=== PATIENT | female | born 1945 | race African-American/Black ===

== ENCOUNTER 2025-02-28 17:21 | Inpatient (IN) | payer MEDICARE, SELFPAY ==
--- NOTE | ~2025-02-28 | XR_ITS ---
CLINICAL HISTORY: dyspnea 2 view chest x-ray Comparison: None Findings: Heart size normal. Central patchy mixed interstitial and airspace opacities with findings of pulmonary vascular congestion. Mildly hyperexpanded lungs indicative of COPD changes. No pleural effusion or pneumothorax. IMPRESSION: 1. Mixed interstitial and airspace opacities with findings of pulmonary vascular congestion. Findings could represent volume overload or heart failure. Atypical infectious process such as bronchitis or early bilateral pneumonia can appear similar. This document has been electronically signed by: Anival Jones MD on 02/28/2025 19:50:58
--- NOTE | ~2025-02-28 | US_ITS ---
EXAMINATION: US RETROPERITONEAL LIMITED (RENAL ONLY) CLINICAL INFORMATION: Chronic kidney disease with hypertension. COMPARISON: None available. TECHNIQUE: Ultrasound along with color Doppler imaging and spectral analysis was performed of the kidneys. FINDINGS: RIGHT KIDNEY: 10.1 x 2.8 x 3.4 cm (SAG x AP x TRV). The kidney is normal in size, contour, and echogenicity. Renal cortical thickness is normal. No calculi or focal parenchymal lesions. No hydronephrosis. LEFT KIDNEY: 9.2 x 4.4 x 3.4 cm (SAG x AP x TRV). The kidney is normal in size, contour, and echogenicity. Renal cortical thickness is normal. No calculi or focal suspicious parenchymal lesions. No hydronephrosis. There is a lower pole simple cyst measuring 1.8 cm. There is an upper pole simple cyst measuring 0.6 cm. Spectral Doppler analysis: Right Kidney: -Peak systolic velocity in the proximal right renal artery = 178 cm/s. Normal waveforms. -Peak systolic velocity in the mid right renal artery = 128 cm/s. Normal waveforms. -Peak systolic velocity in the distal right renal artery = 53 cm/s. Normal waveforms. -Patent right renal vein. -Upper pole interlobar artery resistive index of 0.83. -Midpole interlobar artery resistive index of 0.87. -Lower pole interlobar artery resistive index of 0.71. RAR right = could not be calculated. Left Kidney: -Peak systolic velocity in the proximal left renal artery = 161 cm/s. Normal waveforms. -Peak systolic velocity in the mid left renal artery = 164 cm/s. Normal waveforms. -Peak systolic velocity in the distal left renal artery = 166 cm/s. Normal waveforms. -Patent left renal vein. -Upper pole interlobar artery resistive index of 0.83. -Mid pole interlobar artery resistive index of 0.81. -lower pole interlobar artery resistive index of 0.76. RAR left = could not be calculated Aorta: -Peak systolic velocity = 206 cm/s. US/US renal doppler IMPRESSION: 1. Renal parenchyma is normal aside from 2 simple cysts in the left kidney. 2. Cannot calculate the aorta to renal artery ratios due to systolic velocity in the aorta measuring 206 cm/s. 3. No elevated peak systolic velocities or abnormal waveforms identified. 4. Mildly elevated resistive indices in the upper and midpole segmental arteries of both kidneys, suggesting the possibility of some degree of stenosis. 5. Given unclear findings, further investigation with CT angiogram should be considered. Electronically signed by: Shay Manriquez MD 03/01/2025 03:09 PM EDT RP
--- NOTE | ~2025-02-28 | NM_ITS ---
EXAMINATION: Nuclear medicine pulmonary perfusion. CLINICAL INDICATION: Positive d-dimer. Short of breath. COMPARISON: Chest x-ray 02/28/2025. TECHNIQUE: Following intravenous administration of 4 mCi of 99m technetium MAA, imaging of chest was obtained in multiple projections. Ventilation study was not performed. FINDINGS: On perfusion study there is no segmental, subsegmental defects seen to suspect any PE at this time. NM/NM pul perfusion IMPRESSION: Normal perfusion study. Ventilation study was not performed. Electronically signed by: Low Thompson MD 03/01/2025 08:48 AM EDT
[2025-02-28 17:29] VITALS: BP 116/38; PULSE 67; RESP 18; TEMP 36.6; O2SAT 89; BMI 30.9
--- NOTE | 2025-02-28 17:33 | ED_ITS ---
HPI - General Adult General Chief complaint: Dyspnea Stated complaint: SOB-CHF Time Seen by Provider: 02/28/25 18:03 Source: patient Limitations: no limitations History of Present Illness ED Provider: Louann Keyes PA-C HPI narrative: 79-year-old female with a history of hypertension, hyperlipidemia, CKD unknown baseline creatinine, new diagnosis of heart failure, presents with shortness of breath x 1 day. Patient states she is visiting the area, she lives in [place]. Patient is having new dyspnea with exertion, she feels as if she can not catch her breath. Associated new swelling of her hands and lower extremities. Denies recent cough or cold symptoms or fever. Denies chest pain. Denies unilateral calf pain or swelling. No orthopnea or unintentional weight gain to her knowledge. Related Data Allergies Allergy/AdvReac Type Severity Reaction Status Date / Time Sulfa (Sulfonamide Allergy Shortness Verified 02/28/25 17:37 Antibiotics) of Breath Review of Systems 2 Review of Systems: Yes all other systems are reviewed and are negative Constitutional: Constitutional: Denies fatigue and Denies fever(s) Cardiovascular: Cardiovascular: Denies chest pain, Reports dyspnea and Reports dyspnea on exertion Respiratory: Respiratory: Denies cough, Reports dyspnea, Reports dyspnea on exertion and Denies wheezing Gastrointestinal: Gastrointestinal: Denies abdominal pain, Denies nausea and Denies vomiting Endocrine: Endocrine: Denies fatigue Allergic/Immunologic: Allergic/Immunologic: Denies wheezing PMFSH Past Medical History Attestation statement: The following information was validated with the patient. Social History Social History Smoked in Last 30 Days: No Use of substances other than those prescribed or required for medical reasons: No Advance Directives: No Advance Directives Information Provided: Yes Do you have a plan to hurt others: No Plan Physical Exam ED Vital Signs: Vital Signs - 24 hr 02/28/25 17:29 02/28/25 18:54 02/28/25 19:11 Temperature 97.8 F Pulse Rate 67 55 Respiratory Rate 18 14 Blood Pressure 116/38 L 110/43 L 108/44 L Pulse Oximetry 89 L 100 Oxygen Delivery Method Room Air Nasal Cannula Oxygen Flow Rate 3 02/28/25 19:22 03/01/25 00:00 03/01/25 00:00 Temperature 97.9 F Pulse Rate 68 Respiratory Rate 16 Blood Pressure 125/44 L Pulse Oximetry 100 70 L 94 Oxygen Delivery Method Nasal Cannula Room Air Oxygen Flow Rate 3 BMI result Body Mass Index 30.9 Const Other: Alert well-appearing Orientation/consciousness: patient oriented x3 Resp Other: No tachypnea, rhonchorous posterior west, active cough Cardio Other: Pitting edema noted lower extremities, both lower extremities are equal in size Skin Other: Warm dry no rash Neuro General: patient oriented x3, gait normal, no focal motor deficits and CN's II- XI intact bilaterally Psych Other: Cooperative Course Course Course Narrative: This is a rapid medical exam performed by Radhika Overton NP: Additional HPI, ROS, PE not included below will be deferred to primary provider. Patient is a 79-year-old female with history of CHF presenting with shortness of breath and leg swelling since yesterday. Recently flew in from [place]. Denies chest pain. States several hours had worse shortness of breath. Plan: EKG, labs, CXR Reevaluation(s) Reevaluation #1: Ambulated the patient, she became profoundly tachypneic, her oxygen dropped to 70 on room air Medications Administered Discontinued Medications Generic Name Dose Route Start Last Admin Trade Name Freq PRN Reason Stop Dose Admin Furosemide 20 mg 02/28/25 18:53 02/28/25 19:11 Furosemide 20 Mg/2 Ml Vial IVPUSH 02/28/25 18:54 20 mg ONCE ONE Administration Protocol Medical Decision Making Medical Decision Making [facility] Narrative: 79-year-old female with a history of hypertension, hyperlipidemia, CKD unknown baseline creatinine , new diagnosis of heart failure, presents with shortness of breath x 1 day. Patient states she is visiting the area, she lives in [place]. Patient is having new dyspnea with exertion, she feels as if she can not catch her breath. Associated new swelling of her hands and lower extremities. Denies recent cough or cold symptoms or fever. Denies chest pain. Denies unilateral calf pain or swelling. No orthopnea or unintentional weight gain to her knowledge. Problem: Chronic kidney disease, hypertension, age, new heart failure History: Per patient I have considered the following differential diagnoses: ACS, heart failure exacerbation, viral syndrome, pneumonia, PE Plan: Patient's symptoms are concerning for heart failure exacerbation. Performed bedside echo, IVC is dilated, she does have some degree of compromise contractility, images were a poor quality. We will be screening basic labs, BNP and troponin EKG chest x-ray. To note she does not have any infectious signs or symptoms to suggest viral syndrome or pneumonia, we will add on a viral panel. I am considering PE given the new hypoxic eye and she has been traveling, we will add on a dimer. To note she does not have objective unilateral calf pain or swelling, there was no pleuritic chest pain. There was no chest pain at all. I have independently reviewed the following tests: Labs: No leukocytosis, not anemic, no electrolyte abnormality, creatinine 1.95, BNP 83, trop 277.8, viral panel negative, VBG HCO3 subtly elevated at 33, other values wnl, dimer 468 EKG: Sinus bradycardia, rate of 56, incomplete left bundle branch, ST abnormality inferior leads, QTC 408 Chest x-ray: IMPRESSION: 1. Mixed interstitial and airspace opacities with findings of pulmonary vascular congestion. Findings could represent volume overload or heart failure. Atypical infectious process such as bronchitis or early bilateral pneumonia can appear similar. Lab Data 02/28/25 18:05 02/28/25 18:05 Labs: Lab Results 02/28/25 02/28/25 02/28/25 Range/Units 18:05 18:11 19:46 WBC 9.8 (4.8-10.8) X10*3/uL RBC 3.67 L (4.20-5.50) X10*6/uL Hgb 10.8 L (12.0-16.0) g/dl Hct 33.4 L (37.0-47.0) % MCV 91.0 (80.0-98.0) fL MCH 29.4 (27.0-33.0) pg MCHC 32.3 (31.0-35.0) g/dl RDW 14.1 (11.0-16.0) % Plt Count 224 (160-400) X10*3/uL MPV 10.1 (9.4-12.3) fL Immature Gran % (Auto) 0.3 (0.0-0.4) % Neut % (Auto) 59.7 (45-73) % Lymph % (Auto) 9.9 L (20-40) % [place] % (Auto) 7.0 (2-11) % Eos % (Auto) 22.7 H (0-4) % Baso % (Auto) 0.4 (0-2) % Lymph # (Auto) 1.0 L (1.2-4.9) X10*3/uL [place] # (Auto) 0.7 (0.1-1.2) X10*3/uL Eos # (Auto) 2.2 H (0.0-0.4) X10*3/uL Baso # (Auto) 0.0 (0.0-0.2) X10*3/uL Abs Immat Gran (auto) 0.03 (0.00-0.03) X10*3/uL Absolute Neuts (auto) 5.8 (2.0-8.3) x10*3/uL Absolute Nucleated RBC 0.000 (0.0-0.012) X10*3/uL Nucleated RBC % (auto) 0.0 (0.0-0.2) /100WBC Smear Tech's Comments VERIFIED D-Dimer High Sensitivty 468 NG/ML VBG pH 7.35 (7.32-7.43) VBG pCO2 59 mmHg VBG pO2 54 mmHg VBG HCO3 33 H (22-26) mmol/L VBG O2 Saturation 82.0 % VBG Base Excess 6.1 mmol/L Sodium 145 (135-145) mmol/L Potassium 3.6 (3.3-5.1) mmol/L Chloride 104 (96-108) mmol/L Carbon Dioxide 26 (22-29) mmol/L Anion Gap 19 (12-20) BUN 55 H (9-16) mg/dL Creatinine 1.95 H (0.5-1.4) mg/dL Estim Creat Clear Calc 24.1 Estimated GFR 25 Random Glucose 91 (60-115) mg/dL Calcium 10.5 H (8.4-10.2) mg/dL Magnesium 1.7 (1.6-2.6) mg/dL Total Bilirubin 0.4 (0.0-1.0) mg/dL AST 34 H (5-31) U/L ALT 18 (0-31) U/L Alkaline Phosphatase 86 (39-117) U/L Troponin I High Sens 277.8 H* (<3.5-17.0) ng/L B-Natriuretic Peptide 83 (<100) pg/mL Total Protein 6.4 L (6.5-8.0) g/dL Albumin 3.7 (3.5-5.0) g/dL Influenza Type A (PCR) NEGATIVE (Negative) Influenza Type B (PCR) NEGATIVE (Negative) RSV RNA Qual (PCR) NEGATIVE (Negative) SARS-CoV-2 RNA (RT-PCR) NEGATIVE (Negative) 02/28/25 Range/Units 21:25 WBC (4.8-10.8) X10*3/uL RBC (4.20-5.50) X10*6/uL Hgb (12.0-16.0) g/dl Hct (37.0-47.0) % MCV (80.0-98.0) fL MCH (27.0-33.0) pg MCHC (31.0-35.0) g/dl RDW (11.0-16.0) % Plt Count (160-400) X10*3/uL MPV (9.4-12.3) fL Immature Gran % (Auto) (0.0-0.4) % Neut % (Auto) (45-73) % Lymph % (Auto) (20-40) % [place] % (Auto) (2-11) % Eos % (Auto) (0-4) % Baso % (Auto) (0-2) % Lymph # (Auto) (1.2-4.9) X10*3/uL [place] # (Auto) (0.1-1.2) X10*3/uL Eos # (Auto) (0.0-0.4) X10*3/uL Baso # (Auto) (0.0-0.2) X10*3/uL Abs Immat Gran (auto) (0.00-0.03) X10*3/uL Absolute Neuts (auto) (2.0-8.3) x10*3/uL Absolute Nucleated RBC (0.0-0.012) X10*3/uL Nucleated RBC % (auto) (0.0-0.2) /100WBC Smear Tech's Comments D-Dimer High Sensitivty NG/ML VBG pH (7.32-7.43) VBG pCO2 mmHg VBG pO2 mmHg VBG HCO3 (22-26) mmol/L VBG O2 Saturation % VBG Base Excess mmol/L Sodium (135-145) mmol/L Potassium (3.3-5.1) mmol/L Chloride (96-108) mmol/L Carbon Dioxide (22-29) mmol/L Anion Gap (12-20) BUN (9-16) mg/dL Creatinine (0.5-1.4) mg/dL Estim Creat Clear Calc Estimated GFR Random Glucose (60-115) mg/dL Calcium (8.4-10.2) mg/dL Magnesium (1.6-2.6) mg/dL Total Bilirubin (0.0-1.0) mg/dL AST (5-31) U/L ALT (0-31) U/L Alkaline Phosphatase (39-117) U/L Troponin I High Sens 295.6 H* (<3.5-17.0) ng/L B-Natriuretic Peptide (<100) pg/mL Total Protein (6.5-8.0) g/dL Albumin (3.5-5.0) g/dL Influenza Type A (PCR) (Negative) Influenza Type B (PCR) (Negative) RSV RNA Qual (PCR) (Negative) SARS-CoV-2 RNA (RT-PCR) (Negative) Discharge Plan Discharge Clinical Impression: Congestive heart failure, Hypoxia Patient Disposition: Admitted As Inpatient
--- NOTE | 2025-02-28 17:39 | ECG_ITS ---
Test Reason : SOB Blood Pressure : */* mmHG Vent. Rate : 56 BPM Atrial Rate : 56 BPM P-R Int : 154 ms QRS Dur : 114 ms QT Int : 408 ms P-R-T Axes : 73 2 192 degrees QTcB Int : 393 ms Poor data quality Sinus bradycardia Incomplete left bundle branch block Abnormal ECG No previous ECGs available Referred By: Nian Ovetron Electronically Signed By: ELZA QUINTANILLA MD
[2025-02-28 18:13] LABS: Basophils Percent Auto 0.4 % (0-2); Eosinophils Absolute Auto 2.2 X10*3/uL (0.0-0.4); Eosinophils Percent Auto 22.7 % (0-4); Hematocrit 33.4 % (37.0-47.0); Hemoglobin 10.8 g/dl (12.0-16.0); Imm Gran Abs Auto 0.03 X10*3/uL (0.00-0.03); Imm Gran Pct Auto 0.3 % (0.0-0.4); Lymphocytes Percent Auto 9.9 % (20-40); MANUAL DIFF FLAG SCAN; Mean Corpuscular HGB Conc 32.3 g/dl (31.0-35.0); Mean Corpuscular Hemoglobin 29.4 pg (27.0-33.0); Mean Platelet Volume 10.1 fL (9.4-12.3); Monocytes Absolute Auto 0.7 X10*3/uL (0.1-1.2); Neutrophils Absolute Auto 5.8 x10*3/uL (2.0-8.3); Neutrophils Percent Auto 59.7 % (45-73); Platelet Count 224 X10*3/uL (160-400); Red Blood Count 3.67 X10*6/uL (4.20-5.50); Red Cell Distribution Width 14.1 % (11.0-16.0); SCAN SMEAR FLAG 1; White Blood Count 9.8 X10*3/uL (4.8-10.8)
[2025-02-28 18:16] LABS: VBG Base Excess 6.1 mmol/L; VBG HCO3 33 mmol/L (22-26); VBG pCO2 59 mmHg; VBG pH 7.35 (7.32-7.43); VBG pO2 54 mmHg
[2025-02-28 18:19] LABS: Venous Blood Gas Refer to POC result
[2025-02-28 18:33] LABS: B Type Natriuretic Peptide 83 pg/mL (<100)
[2025-02-28 18:36] LABS: Alanine Aminotransferase 18 U/L (0-31); Albumin Level 3.7 g/dL (3.5-5.0); Alkaline Phosphatase 86 U/L (39-117); Anion Gap 19 (12-20); Aspartate Amino Transferase 34 U/L (5-31); Bilirubin Total 0.4 mg/dL (0.0-1.0); Blood Urea Nitrogen 55 mg/dL (9-16); Calcium 10.5 mg/dL (8.4-10.2); Carbon Dioxide 26 mmol/L (22-29); Chloride 104 mmol/L (96-108); Creatinine Clr Calc Pharmacy 24.1; Estimated Glomerular Filt Rate 25; Glucose Random 91 mg/dL (60-115); Magnesium 1.7 mg/dL (1.6-2.6); Potassium 3.6 mmol/L (3.3-5.1); Sodium 145 mmol/L (135-145); Total Protein 6.4 g/dL (6.5-8.0)
[2025-02-28 18:38] LABS: Troponin-I High Sensitivity 277.8 ng/L (<3.5-17.0)
[2025-02-28 18:42] LABS: SLIDE REVIEW VERIFIED
[2025-02-28 18:50] LABS: Influenza A PCR NEGATIVE (Negative); Influenza B PCR NEGATIVE (Negative); Resp Syncy Virus RNA Qual PCR NEGATIVE (Negative); SARS COV2 PCR INHOUSE NEGATIVE (Negative)
[2025-02-28 18:54] VITALS: BP 110/43; PULSE 55; RESP 14; O2SAT 100
[2025-02-28 19:11] VITALS: BP 108/44
[2025-02-28] MEDS: Furosemide 20 MG/2 ML VIAL IVPUSH (19:11)
[2025-02-28 19:22] VITALS: O2SAT 100
--- NOTE | 2025-02-28 19:24 | PC.NURSE ---
pt fio2 reduced to 2L from 3L due to sat at 100%. pt denies chest pain, pt is talking in full sentences, lasix given iv. pt in good spirits and very pleasant.
[2025-02-28 19:59] LABS: D Dimer High Sensitivity 468 NG/ML
--- OUTSIDE RECORDS SUMMARY | 2025-02-28 20:02 | XMS_ITS | Clinical Summary ---
Author Organization [facility] Facility Address [address] [id number] Care Team Providers Care Narrative Writer Name Role Phone Zoltan Mckeon Primary Care Provider [phone] Allergies Active Allergy Reactions Criticality Noted Date Comments Sulfur Dioxide Other (see comments) High 10/15/2016 Triggers asthma. Medications allopurinol (ZYLOPRIM) 100 MG tablet Take 100 mg by mouth 1 (one) time each day 08/01/2023 Active atorvastatin (LIPITOR) 10 MG tablet Take 10 mg by mouth 1 (one) time each day 07/31/2023 Active metOLazone 5 MG tablet Take 5 mg by mouth 1 (one) time each day 06/13/2023 Active NIFEdipine CC (ADALAT CC) 90 MG 24 hr tablet Take 90 mg by mouth 1 (one) time each day 07/31/2023 Active traMADol (ULTRAM) 50 MG tablet Take 50 mg by mouth 1 (one) time each day if needed Active calcitriol (Rocaltrol) 0.25 MCG capsule Take 1 capsule (0.25 mcg total) by mouth 1 (one) time each day 30 capsule 11 05/05/2024 5 Active Active Problems Problem Noted Date Diagnosed Date Chronic kidney disease stage 4 05/05/2024 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 05/05/2024 Hypertensive chronic kidney disease with stage 1 through stage 4 chronic kidney disease, or unspecified chronic kidney disease 05/05/2024 Asthma 08/08/2019 08/23/2023 Essential hypertension 08/28/2016 3 Immunizations Immunization Administration Dates Next Due H1N1 Nasal 09/03/2018 Hepatitis A 10/23/2007 IPV 11/18/1992 Influenza (IM) Preservative Free 10/07/2014 Influenza Split 10/20/2018,09/04/2017 Influenza Split High Dose Pr eservative Free IM 09/15/2015,09/04/2012,09/01/2007 Influenza, Quadrivalent, Pre servative Free 07/25/2016 Influenza, Quadrivalent, Wit h Preservative 09/18/2021,08/11/2020,09/21/2019 Influenza, Trivalent, Adjuvanted 08/07/2017 Influenza, Unspecified 12/01/2020,2019,07/04/2015,09/03,09/13/2010 Meningococcal MCV4P 10/23/2007 Moderna SARS-COV-2 02/07/2021,01/13/2021 Pneumococcal Polysaccharide 07/14/2012 Tdap 04/15/2013 Yellow Fever 02/13/2008,11/18/1992 Zoster 06/18/2009 Social History Tobacco Use Types Packs/Day Years Used Date Smoking Tobacco: Never Smokeless Tobacco: Never Tobacco Cessation:Counseling Given: Not Answered Alcohol Use Standard Drinks/Week Comments Yes 0 (1 standard drink = 0.6 oz pur e alcohol) Comments Unknown Sex and Gender Information Value Date Recorded Sex Assigned at Not on file Legal Sex Female 11:19 AM EST Gender Identity Not on file Sexual Orientation Not on file Last Filed Vital Signs Vital Sign Reading Time Taken Comments Blood Pressure 116/62 11/24/2024 2:01 PM PLISSE MACHINE OPERATOR Pulse 71 11/24/2024 2:01 PM PLISSE MACHINE OPERATOR Temperature 36.4 ??C (97.6 ??F) 08/26/2023 12:58 PM C DT Respiratory Rate - - Oxygen Saturation 97% 11/24/2024 2:01 PM PLISSE MACHINE OPERATOR Inhaled Oxygen Concentration - - Weight 85.3 kg (188 lb) 05/05/2024 9:23 AM CDT Height 160 cm (5' 3 ) 11/24/2024 2:01 PM PLISSE MACHINE OPERATOR Body Mass Index 33.3 05/05/2024 9:23 AM CDT Plan of Treatment Upcoming Encounters Date Type Department Care Team (Latest Contact Info) Description 03/22/2025 1:45 PM CDT Clinical Support [facility], [facility] [address] [phone] 03/24/2025 Orders Only [facility], [facility] [address] [place] [phone] Pradip Doss MD [address] [facility] [address] [place] [phone] Chronic kidney disease stage 4 (HCC); Secondary hyperparathyroidism of renal origin (HCC); Hypertensive chronic kidney disease with stage 1 through stage 4 chronic kidney disease, or unspecified chronic kidney disease; Anemia in chronic kidney disease 03/30/2025 2:00 PM CDT Office Visit [facility], [facility] [address] [facility] [address] [place] [phone] Pradip Doss MD [address] [facility] [address] [place] [address] Health Maintenance Due Date Last Done Comments Pneumococcal Vaccine: 50+ Years (2 of 2 - PCV) 07/14/2013 07/14/2012 Influenza Vaccine Completed 07/22/2024, , 09/18/2021, Additional history exists Hepatitis B Vaccine Aged Out No longe r eligible based on patient's age to complete this topic Insurance [facility] Medicare Care Teams Narrative Writer Relationship Specialty Start Date End Date Zoltan Mckeon [address] [place] [address] PCP - General Internal Medicine 05/05/24
--- OUTSIDE RECORDS SUMMARY | 2025-02-28 20:02 | XMS_ITS | Clinical Summary ---
Author Organization [facility] Address [address] [place] [address] Care Team Providers Care Salvage Laborer Name Role Phone PettZoltan MD Primary Care Provider [phone] Source Comments In the event that this is information that is protected by federal Confidentiality of Substance UseDisorder Patient Records, 42 CFR Part 2 prohibits the unauthorized disclosure of these records.[facility] Allergies Active Allergy Reactions Criticality Noted Date Comments Sulfur Dioxide Other (See Comments) High 10/15/2016 Triggers asthma. Triggers asthma. Medications atorvastatin 10 mg tablet Take 1 tablet by mouth daily. 07/31/2023 Active NIFEdipine 90 mg tablet extended release CR tablet Take 1 tablet by mouth daily. 07/31/2023 Active allopurinoL 100 mg tablet Take 1 tablet by mouth daily. 08/01/2023 Active metOLazone 5 mg tablet Take 1 tablet by mouth daily. 06/13/2023 Active predniSONE 10 mg tablet Take 1 tablet by mouth daily. Active ergocalciferol 1,250 mcg (50,000 unit) Capsule Take 1 capsule by mouth once. Active calcitRIOL 0.25 mcg capsule Take 1 capsule by mouth daily. 05/05/2024 05/05/20 Active gabapentin 100 mg capsule Take 2 capsules by mouth 2 (two) times daily. Active traMADoL 50 mg tablet Take 1 tablet by mouth. 01/28/2024 Active Immunizations Immunization Administration Dates Next Due Hepatitis A (Adult) 10/23/2007,10/23/2007 IPV 11/18/1992,11/18/1992 Influenza (High Dose) 09/01/2007,09/01/2007 Meningococcal Conjugate 10/23/2007,10/23/2007 Yellow Fever 02/13/2008,11/18/1992 Social History Tobacco Use Types Packs/Day Years Used Date Smoking Tobacco: Never Smokeless Tobacco: Never Tobacco Cessation:Counseling Given: Not Answered Alcohol Use Standard Drinks/Week Comments Yes 0 (1 standard drink = 0.6 oz pur e alcohol) socially Comments Unknown Sex and Gender Information Value Date Recorded Sex Assigned at Female 07/12/2024 5:46 PM CDT Legal Sex Female 1:56 PM CDT Gender Identity Female 07/12/2024 5:46 PM CDT Sexual Orientation Straight 07/12/2024 5: 46 PM CDT Last Filed Vital Signs Vital Sign Reading Time Taken Comments Blood Pressure - - Pulse - - Temperature - - Respiratory Rate - - Oxygen Saturation - - Inhaled Oxygen Concentration - - Weight 87.5 kg (193 lb) 07/13/2024 1:26 PM CDT Height - - Body Mass Index - - Plan of Treatment Health Maintenance Due Date Last Done Comments 1 YR COLONOSCOPY 1947 10 YR COLONOSCOPY 1947 2 YR COLONOSCOPY 1947 3 MONTHS COLONOSCOPY 1947 3 YR COLONOSCOPY 1947 4 YR COLONOSCOPY 1947 5 YEAR SIGMOIDOSCOPY 1947 5 YR COLONOSCOPY 1947 6 MONTHS COLONOSCOPY 1947 6 YR COLONOSCOPY 1947 7 YR COLONOSCOPY 1947 8 YR COLONOSCOPY 1947 9 YR COLONOSCOPY 1947 ANNUAL FOBT [address] Colonography 1947 Colorectal Cancer Screening 1947 MEDICARE ANNUAL WELLNESS VISIT 1947 HEPATITIS C SCREENING 1965 BREAST CANCER SCREENING 1987 OSTEOPOROSIS SCREENING 2012 DTAP/TDAP/TD (2 - Td or Tdap) 04/15/2023 04/15/2013, 11/18/2004 COVID-19 VACCINE ( season) 2024 01/28/2024, 09/03/2023, 08/03/2022, Additional history exists INFLUENZA (Season Ended) 07/19/202509/03/ 023, 08/03/2022, 07/31/2022, Additional history exists ZOSTER Completed 11/30/2021, 10/0 11/2020, 06/18/2009 Pneumococcal 50+ Completed 01/28/2024, 07/14/2012 MENINGOCOCCAL B (MENB) Aged Out No lo nger eligible based on patient's age to complete this topic Insurance MEDICARE A AND B [facility] [place] / [place] [address] Care Teams Salvage Laborer Relationship Specialty Start Date End Date Zoltan Mckeon MD [address] [facility] [address] [place] [address] PCP - General Internal Medicine 07/16/24
--- OUTSIDE RECORDS SUMMARY | 2025-02-28 20:02 | XMS_ITS | Patient Health Record ---
Author Organization [facility] Address [address] [place], [place] [id number] Care Team Providers Care Bandage Maker Name Role Phone MD Zoltan Mckeon Primary Care Provider Pradip Dsouza [phone] Allergies Allergen (clinical drug ingredient) Drug/Non Drug Allergy documented on EMR Reaction Allergy Type Onset Date Status Sulfa Unknown Drug Allergy Active Results Component Value Reference Range Notes Crowder Visual Field Reviewed date:11/17/2024 11:01:17 AM Interpretation:NO CHANGE Performing Lab: Notes/Report: NO CHANGE OD +2.45 OS -3.43 Fundus Photo (Not yet review ed by provider) Interpretation:cupping as noted Performing Lab: Notes/Report: cupping as noted Gonioscopy (Not yet reviewed by provider) Interpretation:open 360 to CBB OU , 2-3 + pigment Performing Lab: Notes/Report: open 360 to CBB OU , 2-3 + pigment Reason For Referral No Information Medications Medication SIG (Take, Route, Frequency, Duration) Notes Start Date End Date Status Symbicort 160-4.5 MCG/ACT INHALE 2 PUFFS BY MOUTH EVERY 12 HOURS. Inhalation for 30 Days Active Furosemide 20 MG TAKE 1 TABLET BY KIMI TH EVERY MORNING Oral for 90 Days Active Jardiance 10 MG TAKE 1 TABLET BY KIMI TH EVERY DAY Oral for 30 Days Active Gabapentin 100 MG 1 capsule Orally Onc e a day for 30 days Active Allopurinol 100 MG 1 tablet Orally Once a day Active Atorvastatin Calcium 10 MG 1 tablet Oral ly Once a day Active metOLazone 5 MG TAKE 1 TABLET BY KIMI TH DAILY NEEDED AND DIRECTED Oral for 30 Active NIFEdipine ER 90 MG 1 tablet on an empty stomach Orally Once a day for 30 day(s) Active predniSONE 10 MG 1 tablet Orally Once a day for 30 day(s) Active Vitamin D2 Active Albuterol Sulfate HFA 108 (90 Base) MCG/ACT Inhalation for 25 Days Active Immunizations Vaccine Route Administration Date Status Comme nts Influenza (split), 3 yrs and above Unknown 09/04/2017 A dministered Influenza (split), 3 yrs and above Unknown 10/20/2018 A dministered Influenza (split), 92060 Six months and above Unknown 01/08/2020 Administered Influenza (split), 49098 Six months and above Unknown 12/01/2020 Administered Influenza (split), 85210 Six months and above Unknown 01/18/2023 Refused Influenza (split), 86025 Six months and above Unknown 01/01/2024 Refused Social History Tobacco Use: Social History Observation Description Date Details (start date - stop date) Never Smoker NA - NA Tobacco Use/Smoking Question Answer Notes Are you a nonsmoker Problems Problem Type SNOMED Code ICD Code Onset Dates Problem Status W/U Status Risk Notes Problem Keratoconjunctiviti s sicca, 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 ; Dry Eye K. Sicca, LT H16.222 and Band keratopathy, right eye H18.421 Assessments Encounter Date Diagnosis (ICD Code) Assessment Notes Treatment Notes Treatment Clinical Notes Section Notes 11/17/2024 Presence of intraocular lens (ICD-10 - Z96.1) LEFT FINE THYROID [facility] IN PAST HAS BEEN NEG 11/17/2024 Glaucoma, bilateral, Moderate (ICD-10 - H40.1132) LEFT > RT, STABLE THYROID [facility] IN PAST HAS BEEN NEG 11/17/2024 Exophoria (ICD-10 - H50.52) THYROID [facility] IN PAST HAS BEEN NEG 11/17/2024 Band keratopathy, left eye (ICD-10 - H18.422) use artificial tears. HAS SECONDARY HYPERPARATHYROIDISM THYROID [facility] IN PAST HAS BEEN NEG 11/17/2024 Dry Eye K. Sicca, RT (ICD-10 - H16.221) THYROID [facility] IN PAST HAS BEEN NEG 11/17/2024 Dry Eye K. Sicca, LT (ICD-10 - H16.222) THYROID [facility] IN PAST HAS BEEN NEG 11/17/2024 Band keratopathy, right eye (ICD-10 - H18.421) THYROID [facility] IN PAST HAS BEEN NEG Plan Of Treatment Pending Test Test Name Order Date Crowder Visual Field 03/06/2018 Gonioscopy 10/20/2018 Gonioscopy 05/26/2020 Gonioscopy 11/17/2024 Gonioscopy 09/27/2014 Gonioscopy 07/29/2023 Fundus Photo 07/29/2023 Fundus Photo 11/17/2024 Fundus Photo 09/27/2014 Fundus Photo 12/06/2021 OCT/HRT - NERVE 01/12/2022 OCT/HRT - NERVE 12/01/2020 OCT/HRT - NERVE 07/10/2019 OCT/HRT - NERVE 03/06/2018 [facility] 01/12/2022 [facility] 01/18/2023 SLT 12/04/2019 Insurance Providers Payer Name Payer Address Payer Phone Subscriber Number Group Number Insured Name Patient Relationship to Insured Coverage Start Date Coverage End Date [employer]AGE [address] [address] [place] [phone] [id number] Fariha Manzano Self - patient is the insured 3 Medical (General) History Medical History History ICD Code poag PACHY 560/563 2011 , SLT OU 2012 pc iol OU exophoria Surgical History Surgery Date(Month/Year) SLT OU SLT OD 12-04-2019 SLT OS 09-11-19 Phaco/IOL OS 01-16-2022 PHACO/PC IOL OD 01-31-2023 Hospitalization History Reason Date(Month/Year) back injections 2016
--- OUTSIDE RECORDS SUMMARY | 2025-02-28 20:02 | XMS_ITS | Referral Summary ---
Author Organization [facility] Address [address] [place] [address] Care Team Providers Care Timber Grader Name Role Phone Dom Garrett MD Unavailable Jermaine Steele MD Unavailable [phone] Jarrett Damon MD Unavailable [phone] Jillian Jarquin MD Unavailable Unavailab Zoltan Guo MD Primary Care Provider [phone] Encounters Date Type Department Care Team Description 02/10/2025 10:40 AM CDT Office Visit [facility] [address] [place], [place] [id number] Zoltan Mckeon MD Hospital discharge follow-up (Primary Dx); Stage 3b chronic kidney disease (CMS-HCC); Secondary hyperparathyroidism of renal origin; Pulmonary hypertension (CMS-HCC); NSTEMI (non-ST elevated myocardial infarction) (CMS-HCC); Encephalocele (CMS-HCC); 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); Restrictive lung disease; Obesity (BMI 30-39.9); Essential hypertension 02/03/2025 Travel 02/02/2025 2:20 PM CDT Office Visit [facility] [address] [place] [address] Mireya Locke MD Pulmonary hypertension ([facility]) (Primary Dx); 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); NSTEMI (non-ST elevated myocardial infarction) ([facility]); Essential hypertension; Obesity (BMI 30-39.9) 02/01/2025 Travel 02/01/2025 Telephone [facility] [address] [place], [place] [id number] Cecilia Ravi RN TCM (Discharged 01/29/25) 01/29/2025 Telephone [facility] [address] [place] [address] Leanna Quinones MD Appointment (Received a message regarding scheduling a follow-up with Dr. Quinones.) 01/27/2025 2:04 PM CDT - 01/29/2025 2:07 PM CDT Hospital Encounter [facility] - TELEMETRY/IMC [address] [place], [place] [id number] Oscar Shaikh MD Carizey, Rene P, DO Karimi, Koohzad, DO Bunyan, Ann S, MD Chest pain, unspecified type (Primary Dx); Elevated troponin; NSTEMI (non-ST elevated myocardial infarction) ([facility]-H[facility]); Essential hypertension Discharge Disposition: Needs Coding by HIM 01/26/2025 7:47 PM CDT - 01/27/2025 3:16 AM CDT Emergency [facility] EMERGENCY DEPARTMENT [address] 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 Office Visit [facility] [address] [place], [place] [id number] Zoltan Mckeon MD Swelling of lower extremity (Primary Dx); Chronic right-sided low back pain with right-sided sciatica; Stage 3b chronic kidney disease ([facility]); Diastolic dysfunction with chronic heart failure ([facility]); Secondary hyperparathyroidism of renal origin; Pulmonary hypertension ([facility]); Encephalocele ([facility]); Restrictive lung disease; Essential hypertension 01/06/2025 Refill [facility] [address] [place] [address] Zoltan Mckeon MD Med Change Request 12/31/2024 Refill [facility] [address] [place] [address] Zoltan Mckeon MD Med Change Request 12/23/2024 10:40 AM DRIER TAKE OFF TENDER Office Visit [facility] [address] [phone] Debbi Murrell MD Shortness of breath (Primary Dx) from Last 3 Months Allergies Active Allergy Reactions Criticality Noted Date Comments Sulfur Dioxide Other High 10/15/2016 Triggers asthma. Medications albuterol HFA 90 mcg/actuation INHL inhalerIndicati ons:Subacute cough,Wheezing Inhale 2 puffs by mouth every 6 hours as needed for Shortness of Breath or Wheezing 20.1 g 3 08/11/20 24 Active budesonide-form oteroL (Symbicort) 160-4.5 mcg/actuation INHL inhaler Inhale 2 puffs by mouth every 12 hours 10.2 g 5 09/09/20 24 Active allopurinoL (ZYLOPRIM) 100 mg PO Tab tabletIndicatio ns:Chronic gout without tophus, unspecified cause, unspecified site TAKE 1 TABLET BY MOUTH EVERY DAY AT NIGHT 90 tablet 1 10/19/20 24 Active Additional Information Patient not taking.Reported on 02/02/2025 gabapentin (NEURONTIN) 100 mg PO capsuleIndicati ons:Chronic right-sided low back pain with right-sided sciatica TAKE 2 CAPSULES BY MOUTH TWO TIMES DAILY 360 capsule 1 10/29/20 24 Active diosmin complex no.1 (Vasculera) 630 mg PO Tab Take 630 mg by mouth daily PLEASE CALL THE PATIENT AT [phone] 90 tablet 3 11/13/20 24 Active furosemide (LASIX) 20 mg PO tabletIndicatio ns: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) TAKE 1 TABLET BY MOUTH EVERY DAY IN THE MORNING 90 tablet 1 01/09/20 25 Active traMADoL (ULTRAM) 50 mg PO tabletIndicatio ns:pain Take 1 tablet (50 mg) by mouth two times daily as needed for Pain 30 tablet 01/13/20 25 Active lidocaine (LIDODERM) 5 % TOP PtMd patchIndication s:Chronic right-sided low back pain with right-sided sciatica Apply 2 patches topically daily Use as directed. Application Site: Lower back 10 patch 3 01/13/20 25 Active calcitriol (ROCALTROL) 0.25 mcg PO Cap capsule Take 0.25 mcg by mouth in the morning. Active acetaminophen (TYLENOL) 500 mg PO Tab tablet Take 1 tablet (500 mg) by mouth every 6 hours as needed for Pain or Fever 30 tablet 01/27/20 25 Active benzonatate (TESSALON) 100 mg PO Cap capsule Take 1 capsule (100 mg) by mouth in the morning and 1 capsule (100 mg) at noon and 1 capsule (100 mg) before bedtime. 30 capsule 01/27/20 25 Active guaiFENesin-dex tromethorphan (TUSSIN DM) 10-100 mg/5 mL PO Syrp oral syrupIndication s:cough Take 5 mL by mouth every 6 hours as needed for Chest Congestion 118 mL 01/27/20 25 Active atorvastatin (LIPITOR) 80 mg PO tablet Take 1 tablet (80 mg) by mouth nightly Avoid grapefruit juice. 30 tablet 2 01/30/20 25 025 Active aspirin chewable 81 mg PO tablet Take 1 tablet (81 mg) by mouth in the morning. 30 tablet 2 01/31/20 25 025 Active metoprolol tartrate (LOPRESSOR) 25 mg PO tablet Take 0.5 tablets (12.5 mg) by mouth in the morning and 0.5 tablets (12.5 mg) before bedtime. 90 tablet 01/30/20 25 Active NIFEdipine CC 90 mg PO extended release tablet Take 90 mg by mouth nightly Avoid grapefruit juice. Swallow whole. 025 Discontinu ed(Dose adjustment ) metOLazone (ZAROXOLYN) 5 mg PO tablet TAKE 1 TABLET BY MOUTH EVERY DAY AT NIGHT 90 tablet 01/05/20 25 025 Discontinu ed(Therapy completed) azithromycin (ZITHROMAX) 500 mg PO tablet Take 1 tablet (500 mg) by mouth in the morning for 2 days. 2 tablet 01/31/20 25 025 guaiFENesin 1,200 mg PO [id number] :cold symptoms Take 1,200 mg by mouth in the morning and 1,200 mg before bedtime. Do all this for 7 days. 14 tablet 01/30/20 25 025 predniSONE (DELTASONE) 20 mg PO tablet Take 2 tablets (40 mg) by mouth every morning with breakfast for 4 days Take with or after a meal. 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 Pulmonary hypertension 06/09/2018 Diastolic dysfunction with chronic heart failure 06/09/2018 Restrictive lung disease 06/09/2018 Essential hypertension 08/28/2016 Resolved Problems Problem Noted Date Diagnosed Date Resolved Date Perforation of left tympanic membrane 01/20/2020 06/03/2020 CSF leak from ear 06/16/2019 06/03/2020 Tegmen defect of base of skull 01/06/2019 06/03/2020 Otorrhea of left ear 11/04/2018 020 Shortness of breath 04/23/2018 01/13/20 25 Morbid obesity 10/18/2016 01/28/2024 Immunizations Immunization Administration Dates Next Due AREXVY - RESPIRATORY SYNCYTI AL VIRUS (RSV) VACCINE INJECTION - ADULT 09/02/2024 COVID VAC (12y+) MODERNA/mRN A (PF) 50 mcg/0.5 mL 07/22/2024 COVID VAC (12y+) PFIZER/mRNA (PF) 30 mcg/0.3 mL 01/28/2024,09/03/2023 COVID-19 VACCINE (MODERNA/mR NA-1237) 100 mcg/0.5 ml INJECTION 02/07/2021,01/13/2021 Flublok (Pf) - Influenza Vac cine QUAD Jeanne 0.5 mL Im Injection 09/28/2019 Fluzone (High Dose) QUAD PF - Influenza Virus Vaccine Im Injection 09/03/2023,08/03/2022,08/18/2021 IC Influenza (Live) Virus (H 1n1) Vaccine Nasal [place] 09/03/2018 Influenza 07/31/2022 Influenza Virus Vaccine (Hig h Dose) Injection 07/22/2024,09/15/2015,09/04/2012,09/01 Influenza vaccine,quadravalent,adjuvanted 08/11/2020 Influenza vaccine,trivalent,adjuvanted 7 Influenza, Injectable, Quadrivalent 09/18/2021,0 08/11/2020,09/21/2019 Influenza, Seasonal Injectab le, Preserv Free 10/07/2014 Influenza, Split Virus, 3 Ye ars And Above 10/20/2018,09/04/2017 Influenza, Unspecified Formula ,01/08/2020,07/04/2015,09/03,09/13/2010 Influenza, injectable, quadr ivalent, preserv free 09/06/2018,09/03/2018,07/25/2016 MENACTRA - MENINGOCOCCAL VAC CINE A,C,Y,W-135 50 MCG 10/23/2007 PNEUMOVAX 23 - PNEUMOCOCCAL 23-VALPS VACCINE 07/14/2012 PREVNAR 20 - PNEUMOCOCCAL 20 -JEANNE CONJ VACCINE 01/28/2024 SHINGRIX - ZOSTER VACCINE 11/30/2021,08/18/2021 Kvlhwrq-Ulltxeceqw-Vqnwieeyu Pertussis (Tdap) Injection 04/15/2013 YF-VAX - YELLOW FEVER VACCINE 02/13/2008, 993 ZOSTAVAX - ZOSTER VACCINE LI VE 19,400 UNIT 06/18/2009 hepatitis A vaccine injection, Adult 10/23/2007 inactivated poliovirus vacci ne injection/oral 11/18/1992 influenza virus vaccine 09/03/2011,09/13/2010 Social History Tobacco Use Types Packs/Day Years Used Date Smoking Tobacco: Never Smokeless Tobacco: Never Tobacco Cessation:Counseling Given: Yes Alcohol Use Standard Drinks/Week Comments Yes 0 (1 standard drink = 0.6 oz pur e alcohol) socially only per patient AUDIT-C Answer Date Recorded Frequency of Alcohol Consumption 2-4 times a sat07/21/2019 Average Number of Drinks Not on file 019 Frequency of Binge Drinking Not on file 01/2019 Social Connections Answer Date Recorded Conversations with friends/family/neighbors per week Not on file 01/29/2021 Food Insecurity Answer Date Recorded Currently or in the past 3 m onths, have you worried your food would run out before you had money to buy more? No 2024 In the past 12 months, have you run out of food or been unable to get more? No 02/03/2025 Transportation Needs Answer Date Record ed Currently or in the past 3 m onths, has lack of transportation kept you from medical appointments, getting food or medicine, or providing care to a family member? Unrecognized value 02/03/2025 Not on file 02/03/2025 Medical Transportation Needs? No Daily Living Transportation Needs? [Peds Only] N ot on file 02/03/2025 Employment Status Answer Date Recorded Employment Need? No 02/03/2025 Utilities Answer Date Recorded Currently or in the past 12 months, have you or household members gone without utilities (heat, water, electricity)? No 02/03/2025 Interpersonal Safety Answer Date Record ed Safety Concerns? No 01/28/2024 Physical Safety Need? No 01/28/2024 Emotional Safety Need? No Housing Insecurity Answer Date Recorded Current Housing Need? No 02/03/2025 Housing Loss Worry? Not on file 02/03/2025 Homeless in last 12 months? No 01/16 Comments No Sex and Gender Information Value Date Recorded Sex Assigned at Female 05/02/2021 5:47 PM CDT Legal Sex Female 12:04 PM CDT Gender Identity Female 05/02/2021 5:47 PM CDT Sexual Orientation Not on file Last Filed Vital Signs Vital Sign Reading Time Taken Comments Blood Pressure 113/72 02/10/2025 10:25 AM CDT Pulse 54 02/10/2025 10:25 AM CDT Temperature 35.9 ??C (96.6 ??F) 02/10/2025 10:25 AM C DT Respiratory Rate 18 02/02/2025 2:05 PM CDT Oxygen Saturation 95% 02/10/2025 10:25 AM CDT Inhaled Oxygen Concentration - - Weight 80.7 kg (178 lb) 02/10/2025 10:20 AM CDT Height 157.5 cm (5' 2.01 ) 02/10/2025 10:20 AM C DT Body Mass Index 32.55 02/10/2025 10:20 AM CDT Plan of Treatment Upcoming Encounters Date Type Department Care Team (Late st Contact Info) Description 03/10/2025 1:40 PM CDT Office Visit [facility] [address] [place] [address] Zoltan Mckeon MD [address] [facility] [place] [address] 03/25/2025 2:45 PM CDT Office Visit [facility] [address] [place] [phone] Luis Eduardo Walker MD [address] [place] [address] 08/10/2025 2:00 PM CDT Office Visit [facility] [address] [place] [address] Mireya Locke MD [address] [place] [id number] Medical Devices Implanted Type Area Twisting Machine Operator Device Identifier Shelf Expiration Date Model / Serial / Lot Special Implant - Anesthesia - [id number] Implanted:Qty: 2 on 01/19/2020 by Jarrett Damon MD at [facility] N/A: Sacrum 11/17/2024 S99-02 / [id number] / NA Description:[facility] Sp onge 2 pack Special Implant - Anesthesia - [id number] Implanted:Qty: 1 on 01/19/2020 by Jarrett Damon MD at [facility] N/A: Sacrum 11/17/2021 S88-20 / [id number] / [id number] Description:[employer] SI Cortical Graft 8 X 8 X 20.6mm Special Implant - Anesthesia - [id number] Implanted:Qty: 1 on 01/19/2020 by Jarrett Damon MD at [facility] N/A: Sacrum 11/17/2021 S88-20 / [id number] / [id number] Description:[employer] SI Cortical Graft 8 X 8 X 20.6mm Special Implant - Anesthesia - [id number] Implanted:Qty: 1 on 07/28/2020 by Jarrett Damon MD at [facility] Right: Back 06/07/2025 S99-02 / [id number] / NA Description:[employer]NER[employer] DBM SP ONGEM 9 X 9 X 9MM Special Implant - Anesthesia - [id number] Implanted:Qty: 1 on 07/28/2020 by Jarrett Damon MD at [facility] Right: Back 06/17/2024 S99 / [id number] / [id number] Description:si cortical shira t [employer] Special Implant - Anesthesia - [id number] Implanted:Qty: 1 on 07/28/2020 by Jarrett Damon MD at [facility] Right: Back 06/17/2024 S807-07 / [id number] / [id number] Description:si cortical shira t [employer] Device Spinal Lumbar 12mm Indirect Decompression [employer]ion [id number] - [id number] Implanted:Qty: 1 on 08/29/2021 by Jarrett Damon MD at [facility] N/A: Spine Lumbar [employer] 06/21/2026 101-9812 / [id number] / [id number] Device Spinal Lumbar 12mm Indirect Decompression [employer] [id number] - [id number] Implanted:Qty: 1 on 08/29/2021 by Jarrett Damon MD at [facility] N/A: Spine Lumbar [employer] 05/15/2026 [id number] / NA / [id number] Procedures Procedure Name Priority Date/Time Associated Diagnosis Comments NM PHARMACOLOGIC CARDIAC REST AND STRESS WITH NUCLEAR IMAGING Routine 01/28/2025 3:[address] NUCLEAR IMAGING OVERREAD Routine 01/28/2025 3:58 PM CDT VAS DUPLEX LOWER EXTREMITY VEINS WITH COMPRESSION BILAT Routine 01/28/2025 3:49 PM CDT ECHO TRANSTHORACIC COMPLETE WITH DOPPLER, WITHOUT CONTRAST, WITHOUT STRAIN Routine 01/28/2025 9:42 AM CDT APTT ON HEPARIN Timed 01/28/2025 8:23 AM CDT COMPLETE BLOOD COUNT Routine 01/28/2025 7:06 AM CDT COMPLETE BLOOD COUNT Routine 01/27/2025 9:20 PM CDT APTT STAT 01/27/2025 9:20 PM CDT TYPE AND SCREEN Routine 01/27/2025 6:18 PM CDT POINT OF CARE GLUCOSE(METER) Routine 01/27/2025 5:33 PM CDT HIGH SENSITIVITY TROPONIN I STAT 01/27/2025 3:51 PM CDT SST EXTRA TUBE Routine 01/27/2025 1:57 PM CDT BLUE EXTRA TUBE Routine 01/27/2025 1:57 PM CDT EXTRA TUBES Routine 01/27/2025 1:57 PM CDT HEPATIC FUNCTION PANEL Add On 1:57 PM CDT THYROID STIMULATING HORMONE Add On 01/27/2025 1:57 PM CDT B-TYPE NATRIURETIC PEPTIDE Add On 01/27/2025 1:57 PM CDT HIGH SENSITIVITY TROPONIN I STAT 01/27/2025 1:57 PM CDT COMPREHENSIVE METABOLIC PANEL STAT 01/27/2025 1:57 PM CDT CBC WITH DIFFERENTIAL STAT 01/27/2025 1:57 PM CDT ECG ELECTROCARDIOGRAM 01/27/2025 1:[address] ANGIOGRAM CHEST FOR PE WITH IV CONTRAST STAT 01/27/2025 2:16 AM CDT HIGH SENSITIVITY TROPONIN I Timed 01/27/2025 12:18 AM CDT ECG SCAN RESULT 01/27/2025 ECG SCAN RESULT 01/27/2025 D DIMER FIBRIN DERIVATIVES STAT 01/26/2025 10:34 PM CDT HIGH SENSITIVITY TROPONIN I STAT 01/26/2025 10:34 PM CDT ECG ELECTROCARDIOGRAM 01/26/2025 10:23 PM CDT ELECTROCARDIOGRAM (ECG) PERFORMED BY ED Routine 01/26/2025 10:23 PM CDT HIGH SENSITIVITY TROPONIN I STAT 01/26/2025 8:28 PM CDT ECG ELECTROCARDIOGRAM 01/26/2025 8:22 PM CDT ELECTROCARDIOGRAM (ECG) PERFORMED BY ED Routine 01/26/2025 8:22 PM CDT EXTRA GREEN LI HEP Routine 01/26/2025 8: 20 PM CDT SST EXTRA TUBE Routine 01/26/2025 8:20 PM CDT RED EXTRA TUBE Routine 01/26/2025 8:20 PM CDT BLUE EXTRA TUBE Routine 01/26/2025 8:20 PM CDT LAVENDER EXTRA TUBE Routine 01/26/2025 8 :20 PM CDT X-RAY CHEST 2 VIEWS PA/LAT STAT 01/26/2025 5:06 PM CDT FLU/RSV/SARS-COV-2 PANEL Routine 025 4:14 PM CDT B-TYPE NATRIURETIC PEPTIDE Routine 01/26/2025 4:12 PM CDT COMPREHENSIVE METABOLIC PANEL STAT 01/26/2025 4:12 PM CDT CBC WITH DIFFERENTIAL STAT 01/26/2025 4:12 PM CDT ECG SCAN RESULT 01/26/2025 ECG SCAN RESULT 01/26/2025 X-RAY DXA BONE DENSITY 1+ SITES AXIAL Routine 03/17/2021 1:55 PM CDT Osteopenia of lumbar spine from Last 3 Months or Most Recently Relevant to Health Maintenance Results * NM Pharmacologic Cardiac Rest and Stress with Nuclear Imaging (01/28/2025 3:59 PM CDT) Anatomical Region Laterality Modality Nuclear Medicine Narrative 01/28/2025 4:20 PM CDT Table formatting from the original result was not included. Images from the original result were not included. Myocardial Perfusion SPECT Scan Patient Name: ??Fariha Manzano ??Study Date: ??01/28/2025 ?? Referring Physician: ??Other MD Edel Mckeon ??Kenyatta Age/Sex: ??79 y/o / Female ??Reporting Physician: ??Mireya Locke MD ?? Height: 62.01 inches Weight: 183.00 ??lbs BMI: ??33.5 kg/m2 Indications: Ischemic symptoms; Prior cardiac history: Heart failure. ??No prior diagnostic testing has been performed. Cardiac risk factors: Hypertension, Hypercholesterolemia STRESS PROTOCOL: SPECT protocol: Pharmacologic The patient was infused intravenously with regadenoson at 0.08 mg/ml for a total duration of 10 seconds. A total regadenoson dose of 0.4 mg was injected intravenously. Pharmacologic stress was discontinued due to end of protocol. The patient's heart rate increased from 63 bpm at rest to 71 bpm at peak stress. The patient's blood pressure at rest was 135/53 mmHg and decreased to 123/50 mmHg at peak stress. Blood pressure response was normal. Chest pain symptoms consistent with non-anginal mild chest discomfort occurred. Other symptoms that occurred included dyspnea and headache.. ?? Sutherland treadmil score is: --. ??-- STRESS TEST FINDINGS: Adequacy of Stress: Good STRESS EKG Data REST EKG Data Test Status Abnormal Abnormal Rhythm sinus rhythm sinus rhythm AV Block none none ?? QRS Morphology normal normal Arrhythmias none none ST Response ?? Stress ST response was non-diagnostic due to resting ST abnormalities. nonspecific ST-T changes (NSSTTCS) EKG Summary ?? The stress EKG demonstrated sinus rhythm with nonspecific ST-T changes (NSSTTCS). There were no arrhythmias at stress. Stress ST response was non-diagnostic due to resting ST abnormalities. The resting EKG demonstrated sinus rhythm with nonspecific ST-T changes (NSSTTCS). The resting EKG is not able to be interpreted for ischemia. There were no arrhythmias at rest. IMAGING PROTOCOL:Gated Stress Tc-99m Tetrofosmin / Gated Rest Tc-99m Tetrofosmin Rest imaging was performed with the patient in the supine position approximately 37 minutes following the intravenous injection of 10.0 mCi of Tc-99m Tetrofosmin. Stress imaging was performed; 31.1 mCi of Tc-99m Tetrofosmin were injected intravenously after the termination of regadenoson infusion. The heart was imaged with the patient in the supine position approximately 40 minutes post-injection. ??STRESS Study REST Study Date 01/28/2025 01/28/2025 Radiopharmaceutical Tc-99m Tetrofosmin Tc-99m Tetrofosmin Tracer Activity ??31.1mCi 10.0mCi PERFUSION FINDINGS Stress Images ?? Rest Images ?? Overall Study Quality: ??Fair Extra Cardiac Activity: ??Normal Study Artifacts: ??None LV Myocardial Perfusion Defects: Overall LV perfusion is:Normal LV perfusion is normal. Stress/Rest LV Volume Ratio: 1.13, Normal LV PERFUSION QUANTITATIVE RESULT: ? Score Interpretation Stress Rest Reversibility 0 No defect ? 1 mildly reduced ? 2 moderately reduced ? 3 severely reduced ? 4 absent counts ? Summed Stress Score= 0 ?? Summed Rest Score= ??0 ?? Summed Difference Score= 0 ?? Total Perfusion Defect % 0 % Combined extent and severity of ischemia + scar ??0-4% normal 5-9% mildly abnormal 10-19% moderately abnormal >20% severely abnormal Ischemic Extent % ?? 0% Magnitude of reversible ischemia from rest to stress 0-4% ??normal/equivocal 5-9% mildly abnormal 10-14% moderately abnormal >15% severely abnormal LV FUNCTION FINDINGS AND INTERPRETATION Stress Rest Ejection Fraction 70% 69% ED Volume, EDv Index 99 ml, 53.8 ml/m2 88 ml, 47.8 ml/m2 ES Volume, ESv Index 30 ml, 16.3 ml/m2 27 ml, 14.7 ml/m2 Cardiac Output 4.4 l/min 3.9 l/min Stress Rest LV Global Function: Normal Normal LV Volume: Normal Normal LV Regional Function LV wall motion is normal. LV wall motion is normal. CAC Scoring: mm3 Agatston Score LMain -- -- LAD -- -- LCx -- -- RCA -- -- Total -- -- --Coronary artery calcium score was not performed. CT PROTOCOL AND FINDINGS: CT scan was performed with a Neon Mobilevo 16 operating at 130.00 kv. The exposure was 15 eff.mAs. Contrast was not administered.. The SPECT-CT scan is not a diagnostic study and was performed for attenuation correction only. ??As such, it was not intended to provide detection of any disease or disease process. ??The CT scan will be overread and reported by radiology separately for incidental non-cardiac findings. SUMMARY 1. Stress test findings: Stress was judged to be good. Stress had a normal blood pressure response. Stress ST response was non-diagnostic due to resting ST abnormalities. Chest pain symptoms consistent with non-anginal mild chest discomfort occurred. 2. Perfusion findings: ? ? LV myocardial perfusion is probably normal with no evidence of ischemia or infarction. ? ? Global LV function, regional wall motion, and volume are normal at rest and stress. ? ? There is no transient ischemic dilation. ? ? Coronary calcium score was not performed. Visually, there is coronary artery calcium. ? ? Overall, this is a low risk scan. 3. CAC findings: CT images were not interpreted for incidental findings. Coronary artery calcium score was not performed. 4. Comparison:No previous study available for comparison. 5. CT non-cardiac incidental findings will be reported separately by radiology. REPORTING The study interpretation occurred on 01/28/2025 15:56:43. -- I Stacie GUADARRAMA? Leanna, was physically present n the hospital complex during the test and provided supervision of the stress test portion. Reporting EKG/ Imaging Physician: Mireya Locke MD I, Mireya Locke MD, have personally reviewed and interpreted the EKG and images of this study. In addition, I have personally reviewed this report and concur with its findings and conclusions, as affirmed by my electronic signature. Kim Mike You MD RAD NUCLEAR MEDICINE Final Result * CT Nuclear Imaging Overread (01/28/2025 3:58 PM CDT) Anatomical Region Laterality Modality Heart Nuclear Medicine 01/28/2025 3:58 PM CDT Impressions 01/28/2025 4:20 PM CDT 1. Moderate coronary calcifications. The nuclear myocardial perfusion imaging associated with this study has been reported separately. Attending: Renetta Hawthorne on 01/28/2025 4:19 PM Narrative 01/28/2025 4:20 PM CDT EXAM: CT NUCLEAR IMAGING OVERREAD 01/28/2025 3:58 pm HISTORY: NM CT over-read COMPARISON: CT chest 01/27/2025 TECHNIQUE: Low dose, non gated, non contrast CT protocol (lower chest and upper abdomen) was used for attenuation mapping for both rest and stress Myocardial Perfusion images. ??This esl instructor CT is not designed to produce, and cannot replace, utjxh-bn-fld-art diagnostic CT scans with specific imaging protocols for different body parts and indications. The CT scan was performed with attention to patient radiation dose reduction, as low as reasonably achievable (ALARA). At least one of the following dose reduction techniques was used: Automated exposure control, adjustment of the mA and/or kV according to patient size, use of iterative reconstruction technique. The nuclear myocardial perfusion imaging associated with this study has been reported separately. There is no additional cost to the patient for the interpretation of this study. FINDINGS: Unremarkable chest wall soft tissues. Unremarkable partly visualized upper abdomen. No cardiomegaly. No pericardial effusion. Moderate coronary calcifications. Main pulmonary artery is normal in caliber. Nonaneurysmal thoracic aorta. Scattered atherosclerotic calcifications of aorta. No enlarged mediastinal lymph nodes. Evaluation of hilum is limited in absence of contrast. No focal consolidation. Multilevel degenerative changes of spine. Visualized vertebral body heights are preserved. Partly visualized spinal stimulator leads. Procedure Note Renetta Cantu MD - 01/28/2025 EXAM: CT NUCLEAR IMAGING OVERREAD 01/28/2025 3:58 pm HISTORY: NM CT over-read COMPARISON: CT chest 01/27/2025 TECHNIQUE: Low dose, non gated, non contrast CT protocol (lower chest and upperabdomen) was used for attenuation mapping for both rest and stressMyocardial Perfusion images. This esl instructor CT is not designed toproduce, and cannot replace, yafee-on-hrl-art diagnostic CT scans withspecific imaging protocols for different body parts and indications. The CT scan was performed with attention to patient radiation dosereduction, as low as reasonably achievable (ALARA). At least one of thefollowing dose reduction techniques was used: Automated exposure control,adjustment of the mA and/or kV according to patient size, use of iterativereconstruction technique. The nuclear myocardial perfusion imaging associated with this study hasbeen reported separately. There is no additional cost to the patient for the interpretation of thisstudy. FINDINGS: Unremarkable chest wall soft tissues. Unremarkable partly visualized upper abdomen. No cardiomegaly. No pericardial effusion. Moderate coronarycalcifications. Main pulmonary artery is normal in caliber. Nonaneurysmalthoracic aorta. Scattered atherosclerotic calcifications of aorta. No enlarged mediastinal lymph nodes. Evaluation of hilum is limited inabsence of contrast. No focal consolidation. Multilevel degenerative changes of spine. Visualized vertebral bodyheights are preserved. Partly visualized spinal stimulator leads. IMPRESSION: 1. Moderate coronary calcifications. The nuclear myocardial perfusion imaging associated with this study hasbeen reported separately. Attending: Renetta Hawthorne on 01/28/2025 4:19 PM Edel You MD RAD CT Final Resu lt * VAS Duplex Lower Extremity Veins with Compression Bilat (01/28/2025 3:49 PM CDT) Anatomical Region Laterality Modality Vascular Ultrasound Impressions 01/28/2025 4:06 PM CDT No evidence of lower extremity deep venous thrombosis bilaterally. Attending: Chino Carrillo on 01/28/2025 4:05 PM Narrative 01/28/2025 4:06 PM CDT EXAM: VAS DUPLEX LOWER EXTREMITY VEINS WITH COMPRESSION BILAT, ??01/28/2025 3:25 pm HISTORY: sob COMPARISON: 09/09/2024 venous insufficiency study TECHNIQUE: Grayscale and duplex Doppler study was performed consisting of integrated two-dimensional (2D) real-time imaging: color flow Doppler and Doppler spectral analysis. ??Images are permanently stored on [employer] PACS archive. FINDINGS: Both the right and left common femoral, femoral, and popliteal veins demonstrate compressibility, color flow, respiratory variation, and augmentation. The saphenofemoral junction and profunda femoral vein demonstrate color flow. What is seen of the visualized posterior tibial and peroneal calf veins demonstrate compressibility and color flow. Bilateral lower extremity superficial soft tissue edema. Procedure Note Chino Carrillo MD - 01/28/2025 EXAM: VAS DUPLEX LOWER EXTREMITY VEINS WITH COMPRESSION BILAT, 01/28/2025 3:25pm HISTORY: sob COMPARISON: 09/09/2024 venous insufficiency study TECHNIQUE: Grayscale and duplex Doppler study was performed consisting of integratedtwo-dimensional (2D) real-time imaging: color flow Doppler and Dopplerspectral analysis. Images are permanently stored on [employer] PACS archive. FINDINGS: Both the right and left common femoral, femoral, and popliteal veinsdemonstrate compressibility, color flow, respiratory variation, andaugmentation. The saphenofemoral junction and profunda femoral veindemonstrate color flow. What is seen of the visualized posterior tibialand peroneal calf veins demonstrate compressibility and color flow.Bilateral lower extremity superficial soft tissue edema. IMPRESSION: No evidence of lower extremity deep venous thrombosis bilaterally. Attending: Chino Carrillo on 01/28/2025 4:05 PM us Vidya JAMISON VASCULAR US Final Result * ECHO TRANSTHORACIC COMPLETE WITH DOPPLER, WITHOUT CONTRAST, WITHOUT STRAIN (01/28/2025 9:42 AM CDT) Anatomical Region Laterality Modality Ultrasound 01/28/2025 8:57 AM CDT Narrative 01/28/2025 10:14 AM CDT ? *[facility]* ? Cardiology Department ?[address] ?[place] [address] ? ECHO TRANSTHORACIC COMPLETE WITHOUT CONTRAST, WITHOUT STRAIN PATIENT: ?Fariha Manzano ? : ?1945 HT/WT: ?? 157.5 cm 83 kg ?[place]barca ?AGE: ?79 ? BSA/BMI: 1.84 m^2 33.5 ? kg/m^2 STUDY DATE: 01/28/2025 ? GENDER: F ?BP: ?124 / 47 mmHg ORDERING PHYSICIAN: ??Vidya Brewer REFERRING PHYSICIAN: Vidya Brewer READING PHYSICIAN: ?? Alejandro Holcomb OVENS SUPERVISOR: ? Tonya Gustafson [facility] INDICATIONS: ?? NSTEMI. HISTORY: ?? Primary pulmonary hypertension. HFpEF. ??Functional status: ?? CKD. Risk factors: ??Hypertension. Obesity. Dyslipidemia. CONCLUSIONS SUMMARY: 1. Left ventricle: The cavity size is normal. Wall thickness is normal. ?? Systolic function is normal. The estimated ejection fraction is 60-65%. ?? Wall motion is normal; there are no regional wall motion abnormalities. ?? There is diastolic dysfunction, which cannot be graded based on the ABHIJIT ?? 2016 guidelines 2. Right ventricle: The cavity size is mildly dilated. Systolic function is ?? normal by visual assessment, by TAPSE, and by tricuspid lateral annular ?? systolic velocity (S'). 3. Left atrium: The atrium is mildly dilated. 4. Aortic valve: Trileaflet; mildly calcified leaflets. The peak systolic ?? velocity is 2.2 m/sec. Aortic sclerosis with no significant stenosis. 5. Pulmonary arteries: The tricuspid jet envelope definition is insufficient ?? for estimation of pulmonary artery systolic pressure (PASP). IMPRESSION: ??No previous study was available for comparison. STUDY DATA: ?? M-mode, complete 2D, complete spectral Doppler, and color Doppler. ??Patient status: ??Inpatient. ??Study status: ??Routine. ??Location: Echo laboratory. ??Procedure: ??Transthoracic echocardiography was performed for diagnosis. Images were obtained using a Louie Epiq 7 cardiac ultrasound machine. Image quality was adequate. ??Objective: ??Diagnostic evaluation. ??Study completion: ??The patient tolerated the procedure well. FINDINGS LEFT VENTRICLE: ??The cavity size is normal. Wall thickness is normal. Systolic function is normal. The estimated ejection fraction is 60-65%. Wall motion is normal; there are no regional wall motion abnormalities. There is diastolic dysfunction, which cannot be graded based on the ABHIJIT 2016 guidelines RIGHT VENTRICLE: ??The cavity size is mildly dilated. Systolic function is normal by visual assessment, by TAPSE, and by tricuspid lateral annular systolic velocity (S'). VENTRICULAR SEPTUM: ?Normal septal motion. ?There is no evidence of a ventricular septal defect. LEFT ATRIUM: ??The atrium is mildly dilated. The end-systolic volume index (2-plane Teixeira's) is 35 ml/m^2. RIGHT ATRIUM: ??The atrium is normal in size. ATRIAL SEPTUM: ??There was no evidence of a shunt by color Doppler. MITRAL VALVE: ?? Structurally normal valve. ?? Leaflet separation is normal. Doppler: ??Transvalvular velocity is within the normal range. There is no evidence for stenosis. There is trivial regurgitation. ?The peak diastolic gradient is 4 mm Hg. AORTIC VALVE: ?? Trileaflet; mildly calcified leaflets. Cusp separation is normal. ??Doppler: ?? The peak systolic velocity is 2.2 m/sec. Transvalvular velocity is within the normal range. There is no evidence for stenosis. There is no regurgitation. The LVOT to aortic valve VTI ratio is 0.76. The valve area by the velocity-time integral method is 2.2 cm^2. The valve area index by the velocity-time integral method is 1.18 cm^2/m^2. The ratio of LVOT to aortic valve peak velocity is 0.75. The valve area by the peak velocity method is 2.1 cm^2. The valve area index by the peak velocity method is 1.16 cm^2/m^2. The mean systolic gradient is 9 mm Hg. The peak systolic gradient is 20 mm Hg. TRICUSPID VALVE: ?? Structurally normal valve. ?? Leaflet separation is normal. ??Doppler: ??Transvalvular velocity is within the normal range. There is no evidence for stenosis. There is no regurgitation. PULMONIC VALVE: ?Structurally normal valve. ?? Cusp separation is normal. Doppler: ??Transvalvular velocity is within the normal range. There is no regurgitation. AORTA: ??Aortic root: The aortic root is normal in size. PULMONARY ARTERY: ?The tricuspid jet envelope definition is insufficient for estimation of pulmonary artery systolic pressure (PASP). PERICARDIUM: ??There is no pericardial effusion. SYSTEMIC VEINS: Inferior vena cava: The vessel is normal in size. The respirophasic diameter changes are in the normal range (greater than or equal to 50%). Measurements Left ventricle ? Value ? Ref IVS, ED ?0.7 ?? cm ?0.6 - ?0.9 PW, ED ? 0.9 ?? cm ?0.6 - ?0.9 IVS/PW, ED ? 0.81 ?-------- HARDY, LAX ? 4.7 ?? cm ?3.8 - ?5.2 ESD, LAX ? 2.8 ?? cm ?2.2 - ?3.5 HARDY/bsa, LAX ? 2.6 ?? cm/m^2 ?2.3 - ?3.1 ESD/bsa, LAX ? 1.5 ?? cm/m^2 ?1.3 - ?2.1 EDV ?104 ?? ml ?46 - 106 ESV ?21 ?ml ?14 - 42 EDV, 2-p ? 88 ?ml ?46 - 106 ESV, 2-p ? 23 ?ml ?14 - 42 EF, 2-p ?74 ?% ? 54 - 74 SV, 2-p ?65 ?ml ?-------- EDV/bsa, 2-p ? 48 ?ml/m^2 ?29 - 61 ESV/bsa, 2-p ? 13 ?ml/m^2 ?8 - 24 SV/bsa, 2-p ?35.2 ??ml/m^2 ?-------- Peak E ? 100 ?? cm/sec ?-------- Peak A ? 101 ?? cm/sec ?-------- Peak E/A ratio ? 1 ? -------- E', lat elio, TDI ? 12.4 ??cm/sec ?>=10 E/e', lat elio, TDI ? 8 ? -------- E', med elio, TDI ?(L) ?6.45 ??cm/sec ?>=7 E/e', med elio, TDI ? 16 ?-------- E', avg, TDI ? 9.4 ?? cm/sec ?-------- E/e', avg, TDI ? 11 ?<=14 LVOT ? Value ? Ref Area ? 2.8 ?? cm^2 ?-------- Diam ? 1.9 ?? cm ?-------- Peak veronica, S ?1.69 ??m/sec ? -------- VTI, S ? 34.3 ??cm ?-------- Peak grad, S ? 11 ?mm Hg ? -------- SV ? 97 ?ml ?-------- Qs ? 6.2 ?? L/min ? -------- Qs/bsa ? 3.4 ?? L/(min-m^2) -------- SV/bsa ? 53 ?ml/m^2 ?-------- Right ventricle ?Value ? Ref HARDY minor ax, A4C ?4.1 ?? cm ?2.5 - base ? 4.1 HARDY minor ax, A4C mid (H) ?3.8 ?? cm ?1.9 - ?3.5 TAPSE, 2D ?2.3 ?? cm ?1.7 - ?3.1 S' lateral ? 12.2 ??cm/sec ?6.0 - ?13.4 Left atrium ?Value ? Ref Vol, ES, 1-p A4C ?(H) ?56 ?ml ?22 - 52 Vol, ES, 1-p A2C ?(H) ?73 ?ml ?22 - 52 Vol, ES, 2-p ? 65 ?ml ?-------- Vol/bsa, ES, 2-p ?(H) ?35 ?ml/m^2 ?16 - 34 Aortic valve ? Value ? Ref Peak v, S ?2.2 ?? m/sec ? -------- VTI, S ? 44.9 ??cm ?-------- Mean grad, S ? 9 ? mm Hg ? -------- Peak grad, S ? 20 ?mm Hg ? -------- LVOT/AV, VTI ratio ? 0.76 ?-------- LIANA, VTI ? 2.2 ?? cm^2 ?-------- LIANA/bsa, VTI ? 1.18 ??cm^2/m^2 ?-------- LIANA, Vmax ?2.1 ?? cm^2 ?-------- LIANA/bsa, Vmax ?1.16 ??cm^2/m^2 ?-------- Mitral valve ? Value ? Ref Decel time ? 246 ?? ms ?-------- Peak grad, D ? 4 ? mm Hg ? -------- Aortic root ?Value ? Ref Root max diam, ED ?3.1 ?? cm ?<4.0 Root max diam/bsa, ED ?1.7 ?? cm/m^2 ?1.4 - ?2.2 Ascending aorta ?Value ? Ref AAo AP diam, S ? 3.2 ?? cm ?-------- AAo AP diam/bsa, S ? 1.7 ?? cm/m^2 ?-------- Legend: (L) ??and ??(H) ??dom values outside specified reference range. Electronically signed by Alejandro Holcomb 01/28/2025 10 :13 AM Procedure Note Alejandro Holcomb MD - 01/28/2025 *[facility]* Cardiology Department [address] [place] [id number] ECHO TRANSTHORACIC COMPLETE WITHOUT CONTRAST, WITHOUT STRAIN PATIENT: Fariha Manzano : 1945 HT/WT: 157.5 cm 83 kg Abarca AGE: 79 BSA/BMI: 1.84 m^2 33.5 kg/m^2 STUDY DATE: 01/28/2025 GENDER: F BP: 124 / 47 mmHg ORDERING PHYSICIAN: Vidya Brewer REFERRING PHYSICIAN: Vidya Brewer READING PHYSICIAN: Alejandro Holcomb OVENS SUPERVISOR: Tonya Gustafson RDCS INDICATIONS: NSTEMI. HISTORY: Primary pulmonary hypertension. HFpEF. Functional status:CKD. Risk factors: Hypertension. Obesity. Dyslipidemia. CONCLUSIONS SUMMARY: 1. Left ventricle: The cavity size is normal. Wall thickness is normal. Systolic function is normal. The estimated ejection fraction is60-65%. Wall motion is normal; there are no regional wall motionabnormalities. There is diastolic dysfunction, which cannot be graded based on theJASE 2016 guidelines 2. Right ventricle: The cavity size is mildly dilated. Systolic functionis normal by visual assessment, by TAPSE, and by tricuspid lateralannular systolic velocity (S'). 3. Left atrium: The atrium is mildly dilated. 4. Aortic valve: Trileaflet; mildly calcified leaflets. The peaksystolic velocity is 2.2 m/sec. Aortic sclerosis with no significant stenosis. 5. Pulmonary arteries: The tricuspid jet envelope definition isinsufficient for estimation of pulmonary artery systolic pressure (PASP). IMPRESSION: No previous study was available for comparison. STUDY DATA: M-mode, complete 2D, complete spectral Doppler, and color Doppler. Patient status: Inpatient. Study status: Routine.Location: Echo laboratory. Procedure: Transthoracic echocardiography wasperformed for diagnosis. Images were obtained using a Louie Epiq 7 cardiac ultrasound machine. Image quality was adequate. Objective: Diagnostic evaluation. Study completion: The patient tolerated the procedurewell. FINDINGS LEFT VENTRICLE: The cavity size is normal. Wall thickness is normal. Systolic function is normal. The estimated ejection fraction is 60-65%.Wall motion is normal; there are no regional wall motion abnormalities. Thereis diastolic dysfunction, which cannot be graded based on the ABHIJIT 2016 guidelines RIGHT VENTRICLE: The cavity size is mildly dilated. Systolic functionis normal by visual assessment, by TAPSE, and by tricuspid lateral annular systolic velocity (S'). VENTRICULAR SEPTUM: Normal septal motion. There is no evidence ofa ventricular septal defect. LEFT ATRIUM: The atrium is mildly dilated. The end-systolic volumeindex (2-plane Teixeira's) is 35 ml/m^2. RIGHT ATRIUM: The atrium is normal in size. ATRIAL SEPTUM: There was no evidence of a shunt by color Doppler. MITRAL VALVE: Structurally normal valve. Leaflet separation isnormal. Doppler: Transvalvular velocity is within the normal range. There is no evidence for stenosis. There is trivial regurgitation. The peakdiastolic gradient is 4 mm Hg. AORTIC VALVE: Trileaflet; mildly calcified leaflets. Cusp separationis normal. Doppler: The peak systolic velocity is 2.2 m/sec.Transvalvular velocity is within the normal range. There is no evidence for stenosis. There is no regurgitation. The LVOT to aortic valve VTI ratio is 0.76.The valve area by the velocity-time integral method is 2.2 cm^2. The valvearea index by the velocity-time integral method is 1.18 cm^2/m^2. The ratioof LVOT to aortic valve peak velocity is 0.75. The valve area by the peak velocity method is 2.1 cm^2. The valve area index by the peak velocity method is 1.16 cm^2/m^2. The mean systolic gradient is 9 mm Hg. The peak systolic gradient is 20 mm Hg. TRICUSPID VALVE: Structurally normal valve. Leaflet separation is normal. Doppler: Transvalvular velocity is within the normal range.There is no evidence for stenosis. There is no regurgitation. PULMONIC VALVE: Structurally normal valve. Cusp separation isnormal. Doppler: Transvalvular velocity is within the normal range. There is no regurgitation. AORTA: Aortic root: The aortic root is normal in size. PULMONARY ARTERY: The tricuspid jet envelope definition isinsufficient for estimation of pulmonary artery systolic pressure (PASP). PERICARDIUM: There is no pericardial effusion. SYSTEMIC VEINS: Inferior vena cava: The vessel is normal in size. The respirophasicdiameter changes are in the normal range (greater than or equal to 50%). Measurements Left ventricle Value Ref IVS, ED 0.7 cm 0.6 - 0.9 PW, ED 0.9 cm 0.6 - 0.9 IVS/PW, ED 0.81 -------- HARDY, LAX 4.7 cm 3.8 - 5.2 ESD, LAX 2.8 cm 2.2 - 3.5 HARDY/bsa, LAX 2.6 cm/m^2 2.3 - 3.1 ESD/bsa, LAX 1.5 cm/m^2 1.3 - 2.1 EDV 104 ml 46 - 106 ESV 21 ml 14 - 42 EDV, 2-p 88 ml 46 - 106 ESV, 2-p 23 ml 14 - 42 EF, 2-p 74 % 54 - 74 SV, 2-p 65 ml -------- EDV/bsa, 2-p 48 ml/m^2 29 - 61 ESV/bsa, 2-p 13 ml/m^2 8 - 24 SV/bsa, 2-p 35.2 ml/m^2 -------- Peak E 100 cm/sec -------- Peak A 101 cm/sec -------- Peak E/A ratio 1 -------- E', lat elio, TDI 12.4 cm/sec >=10 E/e', lat elio, TDI 8 -------- E', med elio, TDI (L) 6.45 cm/sec >=7 E/e', med elio, TDI 16 -------- E', avg, TDI 9.4 cm/sec -------- E/e', avg, TDI 11 <=14 LVOT Value Ref Area 2.8 cm^2 -------- Diam 1.9 cm -------- Peak veronica, S 1.69 m/sec -------- VTI, S 34.3 cm -------- Peak grad, S 11 mm Hg -------- SV 97 ml -------- Qs 6.2 L/min -------- Qs/bsa 3.4 L/(min-m^2) -------- SV/bsa 53 ml/m^2 -------- Right ventricle Value Ref HARDY minor ax, A4C 4.1 cm 2.5 - base 4.1 HARDY minor ax, A4C mid (H) 3.8 cm 1.9 - 3.5 TAPSE, 2D 2.3 cm 1.7 - 3.1 S' lateral 12.2 cm/sec 6.0 - 13.4 Left atrium Value Ref Vol, ES, 1-p A4C (H) 56 ml 22 - 52 Vol, ES, 1-p A2C (H) 73 ml 22 - 52 Vol, ES, 2-p 65 ml -------- Vol/bsa, ES, 2-p (H) 35 ml/m^2 16 - 34 Aortic valve Value Ref Peak v, S 2.2 m/sec -------- VTI, S 44.9 cm -------- Mean grad, S 9 mm Hg -------- Peak grad, S 20 mm Hg -------- LVOT/AV, VTI ratio 0.76 -------- LIANA, VTI 2.2 cm^2 -------- LIANA/bsa, VTI 1.18 cm^2/m^2 -------- LIANA, Vmax 2.1 cm^2 -------- LIANA/bsa, Vmax 1.16 cm^2/m^2 -------- Mitral valve Value Ref Decel time 246 ms -------- Peak grad, D 4 mm Hg -------- Aortic root Value Ref Root max diam, ED 3.1 cm <4.0 Root max diam/bsa, ED 1.7 cm/m^2 1.4 - 2.2 Ascending aorta Value Ref AAo AP diam, S 3.2 cm -------- AAo AP diam/bsa, S 1.7 cm/m^2 -------- Legend: (L) and (H) dom values outside specified reference range. Electronically signed by Alejandro Holcomb 01/28/2025 10 :13 AM Harrisonnanette Osman DO CAR ECHO Final Result * (ABNORMAL) aPTT on Heparin (01/28/2025 8:23 AM CDT) [facility] Signature APTT Heparin 40.7(H) 24.0 - 35.0 secs 01/28/2025 8:43 AM CDT [facility] Comment:Final Information (A uto Output) Blood VENOUS BLOOD / Unknown Venipuncture / Unknown 01/28/2025 8:23 AM CDT 01/28/2025 8:23 AM CDT Narrative [facility] - 01/28/2025 8:43 AM CDT The APTT Heparin Therapeutic Range is approximately 48-67 seconds and has been validated against 0.3-0.7 heparin anti-Xa units/mL. us Abelardo Gu MD LAB BLOOD ORDERABLES Final R esult [facility] [address] [place] [address], [facility] [phone] * (ABNORMAL) Complete Blood Count - Daily - per [facility] Heparin Guidelines (01/28/2025 7:06 AM CDT) Only the most recent of2 resultswithin the time period is included. White Blood Count 13.13(H) 4.00 - 10.00 K/uL 01/28/2025 8:28 AM CDT [facility] Red Blood Cell Count 3.44(L) 4.00 - 5.20 M/uL 01/28/2025 8:28 AM T [facility] Hematocrit 31.1(L) 37.0 - 47.0 % 01/28/2025 8:28 AM T [facility] Hemoglobin 9.9(L) 12.0 - 16.0 g/dL 01/28/2025 8:28 AM CDT [facility] MCV 90.4 82.0 - 103.0 fL 01/28/2025 8:28 AM CDT [facility] MCH 28.8 26.0 - 34.0 pg 01/28/2025 8:28 AM CDT [facility] MCHC 31.8 30.0 - 37.0 g/dL 01/28/2025 8:28 AM T [facility] Red Cell Distribution Width 14.9(H) 11.5 - 14.5 % 01/28/2025 8:28 AM CDT [facility] Platelet Count 233 150 - 399 K/uL 01/28/2025 8:28 AM T [facility] Mean Platelet Volume 10.2 8.3 - 12.3 fL 01/28/2025 8:28 AM T [facility] Nucleated Red Blood Cells 0 <=0 /100 WBC 01/28/2025 8:28 AM [facility] Blood VENOUS BLOOD / Unknown Venipuncture / Unknown 01/28/2025 7:06 AM CDT 01/28/2025 8:23 AM CDT Vidya Brewer DO LAB BLOOD ORDERABLES Final Res ult Performing Organization Address [facility]/ZIP Co de Phone Number [facility] [address] [phone] * aPTT - Baseline - STAT (01/27/2025 9:20 PM CDT) Activated PTT 25.1 24.0 - 35.0 secs 01/27/2025 9:54 PM CDT [facility] Comment:Final Information (A uto Output) Blood VENOUS BLOOD / Unknown Venipuncture / Unknown 01/27/2025 9:20 PM CDT 01/27/2025 9:38 PM CDT Narrative [facility] - 01/27/2025 9:54 PM CDT The APTT Heparin Therapeutic Range is approximately 48-67 seconds and has been validated against 0.3-0.7 heparin anti-Xa units/mL. Abelardo Gu MD LAB BLOOD ORDERABLES Final R esult Performing Organization Address [facility] de Phone Number [facility] [address] [phone] * TYPE AND SCREEN (01/27/2025 6:18 PM CDT) ABO/Rh B Positive 01/27/2025 7:44 PM CDT [facility] Antibody Screen Negative 01/27/2025 7:44 PM CDT [facility] Type and Screen Expires on: 01/30/2025 23:59 01/27/2025 7:44 PM CDT [facility] Blood VENOUS BLOOD / Unknown Venipuncture / Unknown 01/27/2025 6:18 PM CDT 01/27/2025 7:01 PM CDT Vidya Brewer DO [facility] BLOOD BANK TEST ORDERABLES Final Result Performing Organization Address City/[facility]/ZIP Co de Phone Number [facility] [address] [phone] * Point Of Care Glucose(Meter) (01/27/2025 5:33 PM CDT) [facility] POC Glucose 83 82 - 115 mg/dL 01/27/2025 5:39 PM CDT [facility] POC Bait [place] ID [id number] 01/27/2025 5:39 PM CDT [facility] POC Meter ID [id number] 01/27/2025 5:39 PM CDT [facility] POC Temp 25.2 C 01/27/2025 5:39 PM CDT [facility] Blood (Blood, Capillary) 01/27/2025 5:33 PM CDT 01/27/2025 5:39 PM CDT us Vidya Brewer DO LAB POC UNSOLICT RESULTS Final Result Performing Organization Address City/[facility]/ZIP Co de Phone Number [facility] [address] [phone] * (ABNORMAL) High Sensitivity Troponin I (01/27/2025 3:51 PM CDT) Only the most recent of5 resultswithin the time period is included. [facility] High Sensitivity Troponin I 229.3(HH) 0.0-17.0 ng/L ng/L 01/27/2025 4:33 PM CDT [facility] Blood VENOUS BLOOD / Unknown Venipuncture / Unknown 01/27/2025 3:51 PM CDT 01/27/2025 3:58 PM CDT us Oscar Shaikh MD LAB BLOOD ORDERABLES Final Res ult [facility] [address] [phone] * BLUE EXTRA TUBE (01/27/2025 1:57 PM CDT) Only the most recent of2 resultswithin the time period is included. Blood VENOUS BLOOD / Unknown Venipuncture / Unknown 01/27/2025 1:57 PM CDT 01/27/2025 2:26 PM CDT Oscar Shaikh MD LAB BLOOD ORDERABLES Final Res ult Performing Organization Address [facility] Co de Phone Number [facility] [address] [place] [address], [facility] [phone] * SST EXTRA TUBE (01/27/2025 1:57 PM CDT) Only the most recent of2 resultswithin the time period is included. Blood VENOUS BLOOD / Unknown Venipuncture / Unknown 01/27/2025 1:57 PM CDT 01/27/2025 2:26 PM CDT Oscar Shaikh MD LAB BLOOD ORDERABLES Final Res ult Performing Organization Address [facility] de Phone Number [facility] [address] [place] [address], [facility] [phone] * TSH with Reflex Free T4 (01/27/2025 1:57 PM CDT) Thyroid Stimulating Hormone 2.134 0.350 - 4.940 uIU/mL 01/27/2025 6:24 PM CDT [facility] Blood VENOUS BLOOD / Unknown Venipuncture / Unknown 01/27/2025 1:57 PM CDT 01/27/2025 2:26 PM CDT Result [facility] Vidya Brewer DO LAB BLOOD ORDERABLES Final Res ult Performing Organization Address [facility] de Phone Number [facility] [address] [place] [address], [facility] [phone] * Hepatic Function Panel (01/27/2025 1:57 PM CDT) Albumin 3.6 3.5 - 5.0 g/dL 01/27/2025 6:03 PM CDT [facility] Bilirubin, Total 0.4 0.2 - 1.3 mg/dL 01/27/2025 6:03 PM CDT [facility] Bilirubin, Direct 0.17 <=0.35 mg/dL 01/27/2025 6:03 PM T [facility] Alkaline Phosphatase 63 30 - 125 U/L 01/27/2025 6:03 PM T [facility] Total Protein 6.6 6.0 - 8.2 g/dL 01/27/2025 6:03 PM CDT [facility] ALT 14 0 - 40 U/L 01/27/2025 6:03 PM T [facility] AST 21 3 - 44 U/L 01/27/2025 6:03 PM T [facility] Blood VENOUS BLOOD / Unknown Venipuncture / Unknown 01/27/2025 1:57 PM CDT 01/27/2025 2:26 PM CDT us Vidya Brewer DO LAB BLOOD ORDERABLES Final Res ult Performing Organization Address City/State/[facility] Co de Phone Number [facility] [address] [phone] * (ABNORMAL) Comprehensive Metabolic Panel (01/27/2025 1:57 PM CDT) Only the most recent of2 resultswithin the time period is included. Sodium 142 137 - 147 mmol/L 01/27/2025 2:53 PM CDT [facility] Potassium 3.4 3.4 - 5.3 mmol/L 01/27/2025 2:53 PM [facility] Chloride 104 99 - 108 mmol/L 01/27/2025 2:53 PM CDT [facility] CO2 Total 25 22 - 29 mmol/L 01/27/2025 2:53 PM CDT [facility] Anion Gap 13 8 - 16 01/27/2025 2:53 PM T [facility] BUN 44(H) 8 - 21 mg/dL 01/27/2025 2:53 PM T [facility] Creatinine 1.82(H) 0.65 - 1.00 mg/dL 01/27/2025 2:53 PM T [facility] BUN/Creat Ratio 24.2 8.0 - 25.0 2:53 PM T [facility] EGFR 28 01/27/2025 2:53 PM [facility] Glucose 86 82 - 115 mg/dL 01/27/2025 2:53 PM T [facility] Total Protein 6.4 6.0 - 8.2 g/dL 01/27/2025 2:53 PM T [facility] Albumin 3.5 3.5 - 5.0 g/dL 01/27/2025 2:53 PM T [facility] Calcium 10.1 9.1 - 11.2 mg/dL 01/27/2025 2:53 PM [facility] Calcium (Adjusted) 10.5 9.1 - 11.2 mg/dL 01/27/2025 2:53 PM T [facility] Comment:Calcium result adjus flex for serum albumin concentration. Suggest confirmation of calcium status with an ionized calcium, if clinically indicated. Bilirubin, Total 0.4 0.2 - 1.3 mg/dL 01/27/2025 2:53 PM T [facility] Alkaline Phosphatase 61 30 - 125 U/L 01/27/2025 2:53 PM [facility] AST 19 3 - 44 U/L 01/27/2025 2:53 PM [facility] ALT 14 0 - 40 U/L 01/27/2025 2:53 PM [facility] Blood VENOUS BLOOD / Unknown Venipuncture / Unknown 01/27/2025 1:57 PM CDT 01/27/2025 2:26 PM CDT [facility] - 01/27/2025 2:53 PM CDT ESTIMATED GLOMERULAR FILTRATION RATE INTERPRETATIONS FOR ALL PATIENTS eGFR Value Interpretation Units are mL/min/1.73 sq m. <15 Kidney Failure 15-29 Severely decreased 30-44 Moderately to severely decreased 40-59 Mildly to moderately decreased 60-89 Mildly decreased >=90 Normal or high Not Applicable for ages <18 The GFR estimate (eGFR) is calculated using the 2020 CKD-EPI creatinine formula. (Please visit [email or web address] for more information.) The equation has not been validated for use in women, patients with serious comorbid conditions, or persons with extremes of body size, muscle mass or nutritional status. us Lb Herr MD LAB BLOOD ORDERABLES Fi nal Result [facility] [address] [place] [address], [facility] [phone] * (ABNORMAL) Complete Blood Count with Differential (01/27/2025 1:57 PM CDT) Only the most recent of2 resultswithin the time period is included. [facility] White Blood Count 13.36(H) 4.00 - 10.00 K/uL 01/27/2025 2:32 PM CDT [facility] Red Blood Cell Count 3.72(L) 4.00 - 5.20 M/uL 01/27/2025 2:32 PM CDT [facility] Hemoglobin 10.9(L) 12.0 - 16.0 g/dL 01/27/2025 2:32 PM CDT [facility] Hematocrit 33.1(L) 37.0 - 47.0 % 01/27/2025 2:32 PM CDT [facility] MCV 89.0 82.0 - 103.0 fL 01/27/2025 2:32 PM CDT [facility] MCH 29.3 26.0 - 34.0 pg 01/27/2025 2:32 PM CDT [facility] MCHC 32.9 30.0 - 37.0 g/dL 01/27/2025 2:32 PM CDT [facility] Red Cell Distribution Width 14.9(H) 11.5 - 14.5 % 01/27/2025 2:32 PM CDT [facility] Platelet Count 244 150 - 399 K/uL 01/27/2025 2:32 PM CDT [facility] Mean Platelet Volume 9.7 8.3 - 12.3 fL 01/27/2025 2:32 PM CDT [facility] Preliminary Absolute Neutrophil Count 6.27 1.84 - 7.80 K/uL 01/27/2025 2:32 PM CDT [facility] Nucleated Red Blood Cells 0 <=0 /100 WBC 01/27/2025 2:32 PM CDT [facility] Segmented Neutrophils 46.9 36.0 - 72.0 % 01/27/2025 2:32 PM CDT [facility] Lymphocytes 7.7(L) 18.0 - 52.0 % 01/27/2025 2:32 PM CDT [facility] Monocytes 6.8 3.0 - 10.0 % 01/27/2025 2:32 PM CDT [facility] Eosinophils 37.9(H) 0.0 - 6.0 % 01/27/2025 2:32 PM CDT [facility] Basophils 0.3 <=3.0 % 01/27/2025 2:32 PM CDT [facility] Immature Gran Percent 0.4 <=1.5 % 01/27/2025 2:32 PM CDT [facility] Neutrophil Auto # 6.27 1.84 - 7.80 K/uL 01/27/2025 2:32 PM CDT [facility] Lymphocyte Number 1.03 0.72 - 5.20 K/uL 01/27/2025 2:32 PM CDT [facility] Monocyte # 0.91 0.12 - 1.00 K/uL 01/27/2025 2:32 PM CDT [facility] Eosinophil Absolute Auto 5.06(H) <=0.60 K/uL 01/27/2025 2:32 PM CDT [facility] Basophil Absolute Auto 0.04 <=0.30 K/uL 01/27/2025 2:32 PM CDT [facility] Immature Gran Absolute Cnt 0.05 <=0.15 K/uL 01/27/2025 2:32 PM CDT [facility] Blood VENOUS BLOOD / Unknown Venipuncture / Unknown 01/27/2025 1:57 PM CDT 01/27/2025 2:26 PM CDT us Lb Herr MD LAB BLOOD ORDERABLES Fi nal Result [facility] [address] [place] [address], [facility] [phone] * B-Type Natriuretic Peptide (01/27/2025 1:57 PM CDT) Only the most recent of2 resultswithin the time period is included. B-Type Natriuretic Peptide 71 <=100 pg/mL 01/27/2025 3:13 PM CDT [facility] Blood VENOUS BLOOD / Unknown Venipuncture / Unknown 01/27/2025 1:57 PM CDT 01/27/2025 2:26 PM CDT us Oscar Shaikh MD LAB BLOOD ORDERABLES Final Res ult Performing Organization Address [facility]/ZIP Co de Phone Number [facility] [address] [place] [address], [facility] [phone] * ECG Electrocardiogram (01/27/2025 1:48 PM CDT) Pathologist [facility] ELECTROCARDIOGRAM REPORT Test Reason : CP Blood Pressure : / mmHG Vent. Rate : 075 BPM ? Atrial Rate : 075 BPM ?? P-R Int : 138 ms ?QRS Dur : 112 ms ?QT Int : 388 ms ? P-R-T Axes : 015 -03 114 degrees ?? QTc Int : 433 ms Normal sinus rhythm Incomplete left bundle branch block ST and T wave abnormality, consider lateral ischemia Abnormal ECG When compared with ECG of 26-JAN-2025 22:23, Incomplete left bundle branch block has replaced Incomplete right bundle branch block Criteria for Septal infarct are no longer present Confirmed by Tyree Walsh ([id number]) on 01/28/2025 11:45:45 AM Referred By: ??ED ? Confirmed By:Tyree BRO 01/27/2025 1:48 PM CDT us Unknown Provider CAR ECG Final Result Performing Organization Address [facility]/ZIP Co de Phone Number DANY BRO * CT Angiogram Chest for PE with IV Contrast (01/27/2025 2:16 AM CDT) Anatomical Region Laterality Modality Chest Computed Tomogra phy 01/27/2025 2:16 AM CDT Impressions 01/27/2025 9:54 AM CDT 1. Negative for pulmonary embolism to the level of the subsegmental pulmonary arteries. 2. At least moderate coronary artery calcifications. 3. Hepatic steatosis. 4. Colonic diverticulosis. I, Dr. Lyly Aguirre, have personally reviewed this report and concur with its findings and conclusions, as affirmed by my electronic signature. Resident/Fellow: Blane Holt on 01/27/2025 2:25 AM Attending: Lyly Aguirre on 01/27/2025 9:53 AM Narrative 01/27/2025 9:54 AM CDT EXAM: CT ANGIOGRAM CHEST FOR PE WITH IV CONTRAST, ??01/27/2025 2:16 am HISTORY: Pulmonary embolism (PE) suspected, low to intermediate prob, positive D-dimer COMPARISON: Same-day chest radiographs. TECHNIQUE: Following intravenous infusion of 80 mL Isovue 370, enhanced 1.25 mm axial acquisitions were obtained through the chest. Multiple reformatted images were generated included coronal and sagittal MPR images and coronal and axial MIP images. The CT scan was performed with attention to patient radiation dose reduction, as low as reasonably achievable (ALARA), while maintaining diagnostic image quality. At least one of the following dose reduction techniques was used: Automated exposure control, adjustment of the mA and/or kV according to patient size, use of iterative reconstruction technique. FINDINGS: Contrast Bolus: Adequate for evaluation of pulmonary embolism to the level of the opacified subsegmental pulmonary arteries. Vessels: ??No filling defect to the level of the subsegmental pulmonary arteries. Normal caliber main pulmonary artery. Nonaneurysmal thoracic aorta. Heart and pericardium: ??Normal RV: LV ratio. Normal-sized heart. No pericardial effusion. At least moderate coronary artery calcifications. Lungs and central airways: ??Patent central airways. No focal consolidation. No suspicious pulmonary nodules. Diffuse mild airway thickening in both lungs. Pleura/ Pleural Space: ??No pleural effusion or pneumothorax. Mediastinum and Vanita: ??No enlarged mediastinal or hilar lymph nodes. Bones: ??Diffuse osseous demineralization. Flowing anterior vertebral endplate osteophytosis consistent with diffuse idiopathic skeletal hyperostosis. Preserved vertebral body heights. No destructive osseous lesions. Chest Wall: ??Sarcopenia. No enlarged axillary or subpectoral lymph nodes. Abdomen: ??Diffusely hypoattenuating liver. Unremarkable adrenal glands. Partially visualized colonic diverticulosis. Small hiatal hernia. Lower Neck: ??Subcentimeter left thyroid lobe nodules and coarse calcification, for which no dedicated follow-up is required per ACR guidelines. Support Devices: ??Intrathecal spinal cord stimulator lead terminating at the level of T6-T7. Procedure Note Lyly Aguirre MD - 01/27/2025 EXAM: CT ANGIOGRAM CHEST FOR PE WITH IV CONTRAST, 01/27/2025 2:16 am HISTORY: Pulmonary embolism (PE) suspected, low to intermediate prob, positiveD-dimer COMPARISON: Same-day chest radiographs. TECHNIQUE: Following intravenous infusion of 80 mL Isovue 370, enhanced 1.25 mm axialacquisitions were obtained through the chest. Multiple reformatted imageswere generated included coronal and sagittal MPR images and coronal andaxial MIP images. The CT scan was performed with attention to patient radiation dosereduction, as low as reasonably achievable (ALARA), while maintainingdiagnostic image quality. At least one of the following dose reductiontechniques was used: Automated exposure control, adjustment of the mAand/or kV according to patient size, use of iterative reconstructiontechnique. FINDINGS: Contrast Bolus: Adequate for evaluation of pulmonary embolism to the levelof the opacified subsegmental pulmonary arteries. Vessels: No filling defect to the level of the subsegmental pulmonaryarteries. Normal caliber main pulmonary artery. Nonaneurysmal thoracicaorta. Heart and pericardium: Normal RV: LV ratio. Normal-sized heart. Nopericardial effusion. At least moderate coronary artery calcifications. Lungs and central airways: Patent central airways. No focalconsolidation. No suspicious pulmonary nodules. Diffuse mild airwaythickening in both lungs. Pleura/ Pleural Space: No pleural effusion or pneumothorax. Mediastinum and Vanita: No enlarged mediastinal or hilar lymph nodes. Bones: Diffuse osseous demineralization. Flowing anterior vertebralendplate osteophytosis consistent with diffuse idiopathic skeletalhyperostosis. Preserved vertebral body heights. No destructive osseouslesions. Chest Wall: Sarcopenia. No enlarged axillary or subpectoral lymphnodes. Abdomen: Diffusely hypoattenuating liver. Unremarkable adrenal glands.Partially visualized colonic diverticulosis. Small hiatal hernia. Lower Neck: Subcentimeter left thyroid lobe nodules and coarsecalcification, for which no dedicated follow-up is required per ACRguidelines. Support Devices: Intrathecal spinal cord stimulator lead terminating atthe level of T6-T7. IMPRESSION: 1. Negative for pulmonary embolism to the level of the subsegmentalpulmonary arteries. 2. At least moderate coronary artery calcifications. 3. Hepatic steatosis. 4. Colonic diverticulosis. I, Dr. Lyly Aguirre, have personally reviewed this report and concurwith its findings and conclusions, as affirmed by my electronicsignature. Resident/Fellow: Blane Holt on 01/27/2025 2:25 AM Attending: Lyly Aguirre on 01/27/2025 9:53 AM us Carson Hunt DO RAD CT Final Resul t * ECG Scan Result (01/27/2025) Only the most recent of4 resultswithin the time period is included. us Unknown Provider GENERIC SCAN ORDER Final Result * (ABNORMAL) D Dimer Fibrin Derivatives (01/26/2025 10:34 PM CDT) D-Dimer 4.09(H) <=0.60 mg/L FEU 01/26/2025 11:08 PM CDT [facility] Comment:Final Information (A uto Output) Blood VENOUS BLOOD / Unknown Venipuncture / Unknown 01/26/2025 10:34 PM CDT 01/26/2025 10:44 PM CDT Narrative [facility] - 01/26/2025 11:08 PM CDT D-Dimer results of less than 0.5 mg/L FEU have been shown to contribute to the exclusion of venous thromboembolism with a negative predictive value of approximately 99% when results are used as part of the total clinical evaluation of the patient. us Carson Hunt DO LAB BLOOD ORDERABLES Final Result [facility] [address] [place] [address], [facility] [phone] * ECG performed by Emergency Dept. (01/26/2025 10:23 PM CDT) Only the most recent of2 resultswithin the time period is included. ELECTROCARDIOGRAM REPORT Test Reason : Blood Pressure : / mmHG Vent. Rate : 074 BPM ? Atrial Rate : 074 BPM ?? P-R Int : 140 ms ?QRS Dur : 118 ms ?QT Int : 398 ms ? P-R-T Axes : 029 010 106 degrees ?? QTc Int : 441 ms Normal sinus rhythm Septal infarct , age undetermined ST and T wave abnormality, consider lateral ischemia Abnormal ECG When compared with ECG of 26-JAN-2025 20:22, No significant change was found Confirmed by Nydia Brambila ([id number]) on 01/27/2025 11:56:44 AM Referred By: ? Confirmed By:Nydia Brambila [facility] 01/26/2025 10:2 3 PM CDT Narrative [facility] - 01/27/2025 11:56 AM CDT Carson Hunt, DO ? 01/27/2025 ??2:41 AM ECG performed by Emergency Dept. Date/Time: 01/26/2025 10:29 PM Performed by: Carson Hunt DO Authorized by: Sagar Mays MD ?? Comments: ?? Normal sinus rhythm rate 74 bpm. ??Normal axis. ??Nonspecific T wave abnormality. ??Incomplete right bundle branch block. Procedure Note Carson Hunt DO - 01/26/2025 10:29 PM CDT SIGN-OUT REPORT 10:29 PM Patient care endorsed to me by Dr Mays Chief Complaint Patient presents with Cough Pt aox4, reports productive cough (yellow)/congestion/fatigue/bodyachesx2-3 days. Also reports bilat lower leg swelling x2+ weeks. Denies chestpain/sob/fever/chills. In nad, vss Disposition: Pending Patient Summary: See ED course below Vitals: 01/26/25 1706 01/26/25 2115 01/27/25 0000 01/27/25 0100 BP: (!) 136/50 (!) 157/58 (!) 127/50 (!) 108/42 Pulse: 71 75 71 75 Resp: 18 20 17 16 Temp: SpO2: 95% 94% 94% 93% Weight: Action Plan/Situational Awareness: 1. Await further workup MEDICAL DECISION MAKING / ED COURSE AND SUMMARY ED Course as of 01/27/25 0241 SatJan 26, 20252144 X-Ray Chest 2 Views PA/Lat A chest x-ray was obtained. I independently interpreted and reviewed thisimaging. I see no obvious signs of pneumonia, pneumothorax. Some signsof pulmonary congestion [DB] 214 Complete Blood Count with Differential(!) CBC overall reassuring. Minimal leukocytosis present. Patient has ahemoglobin of 11.4 [DB] 2146 Comprehensive Metabolic Panel(!) CMP overall reassuring. Patient's potassium is 3.1 repleted withpotassium chloride. Patient's creatinine 1.91 which appears to be atclose to baseline [DB] 214 Flu/RSV/SARS-CoV-2 Panel Viral panel negative [DB] 214 B-Type Natriuretic Peptide BNP within normal limits [DB] 214 Patient given a dose of IV Lasix [DB] 2146 HIGH SENSITIVITY TROPONIN I(!!): 241.1 Troponin obtained and patient inadvertently discharged prior to results.Resulted at 241. Called patient and expressed concern for elevatedtroponin and she is returning to the emergency department. [DB] 2216 [employer] scientific spine stimulator, CKD, pulm HTN. Intermediate riskper revised [place], add on d-dimer. No chest pain, only sob. Urine a6axnsj lasix. [JL] 2221 Lung sounds are clear. [JL] 2341 Repeat troponin uptrending from prior, 240->260, will obtain repeatat midnight. Dimer also returns elevated, will obtain CT PE study tofurther assess. History of CKD, medical necessity note placed. [JL] SatJan 27, 2025 0107 Troponin peaked at 260, with subsequent repeat downtrending to 227.Await CT. [JL] 0230 CT without acute process. Given elevated troponins, discussed withpatient regarding admission, patient adamantly refuses and requests thatshe follow-up outpatient with referral to cardiology. Expressed to herthe importance of admission, certainly with abnormal testing completedtoday and she again refuses. Unable to convince her to stay. States sheneeds to take care of her dog and prefers outpatient follow-up. We areunable to develop an alternative plan for care for the dog at home. [JL] 0237 The patient is electing to leave against medical advice. The patientis clinically sober with intact insight, judgment, and reason; in mymedical opinion, has the capacity to make decisions. I have voiced myconcerns for the patient's health given that a full evaluation andtreatment had not occurred. I have discussed the need for continuedevaluation to determine if their symptoms are caused by a condition thatpresent risk of or morbidity. Risks including but not limited todeath, permanent disability, prolonged hospitalization, prolonged illness,were discussed. I discussed the specific benefits of additional treatment,as well as tried offering alternative options in hopes that the patientmight be amenable to partial evaluation and treatment which would bemedically beneficial to the patient. However, the patient declined myoptions and insisted on leaving. Because I have been unable to convincethe patient to stay, I answered all of their questions about theircondition and asked them to return to the ED as soon as possible tocomplete their evaluation, especially if their symptoms worsen or do notimprove. I emphasized that leaving against medical advice does notpreclude returning here for further evaluation. I asked the patient toreturn if they change their mind about the further evaluation andtreatment. I strongly encouraged the patient to return to this EmergencyDepartment or any Emergency Department at any time, particularly withworsening symptoms. [JL] ED Course User Index [DB] Sagar Mays MD [JL] Carson Hunt DO ECG performed by Emergency Dept. Date/Time: 01/26/2025 10:29 PM Performed by: Carson Hunt DO Authorized by: Sagar Mays MD Comments: Normal sinus rhythm rate 74 bpm. Normal axis. Nonspecific T waveabnormality. Incomplete right bundle branch block. DIAGNOSIS / IMPRESSION Diagnosis: ICD-10-CM ICD-9-CM 1. Acute cough R05.1 786.2 2. Viral respiratory infection J98.8 079.99 B97.89 3. Body aches R52 780.96 4. Localized swelling of both lower legs R22.43 729.81 5. History of CHF (congestive heart failure) Z86.79 V12.59 Request forCardiology 6. Hypokalemia E87.6 276.8 7. Elevated troponin R79.89 790.6 Request for Cardiology Discharged BELL Hunt, [facility] EM[facility]GENCY [facility]PARTMENT us Sagar Mays MD CAR ECG - EMERGENCY DEPT Edite d Result - Final Performing Organization Address City/[facility] Co de Phone Number [facility] * EXTRA GREEN LI HEP (01/26/2025 8:20 PM CDT) Blood VENOUS BLOOD / Unknown Venipuncture / Unknown 01/26/2025 8:20 PM CDT 01/26/2025 9:51 PM CDT us Sagar Mays MD LAB BLOOD ORDERABLES Final Res ult Performing Organization Address [facility] de Phone Number [facility] [address] [place] [address], [facility] [phone] * RED EXTRA TUBE (01/26/2025 8:20 PM CDT) Blood VENOUS BLOOD / Unknown Venipuncture / Unknown 01/26/2025 8:20 PM CDT 01/26/2025 9:51 PM CDT us Sagar Mays MD LAB BLOOD ORDERABLES Final Res ult Performing Organization Address [facility] de Phone Number [facility] [address] [place] [address], [facility] [phone] * LAVENDER EXTRA TUBE (01/26/2025 8:20 PM CDT) Blood VENOUS BLOOD / Unknown Venipuncture / Unknown 01/26/2025 8:20 PM CDT 01/26/2025 8:55 PM CDT us Sagar Mays MD LAB BLOOD ORDERABLES Final Res ult Performing Organization Address [facility] de Phone Number [facility] [address] [place] [address], [facility] [phone] * X-Ray Chest 2 Views PA/Lat (01/26/2025 5:06 PM CDT) Anatomical Region Laterality Modality Chest Computed Radiogr aphy 01/26/2025 5:06 PM CDT Impressions 01/27/2025 7:23 AM CDT Mild pulmonary vasculature distention with bilateral hilar fullness noted. I, Dr. Derek Reagan have personally reviewed this report and concur with its findings and conclusions, as amended in the final report, as affirmed by my electronic signature. Resident/Fellow: Ebony Webb on 01/26/2025 5:21 PM Attending: Derek Reagan on 01/27/2025 7:22 AM Narrative 01/27/2025 7:23 AM CDT EXAM: X-RAY CHEST 2 VIEWS PA/LAT, ??01/26/2025 5:06 pm HISTORY: cough; lower extremity edema COMPARISON: Chest radiograph August 11, 2024 TECHNIQUE: Upright frontal and lateral views FINDINGS: Cardiomediastinal silhouette is within normal limits. Mild pulmonary vascular distention with mild bilateral hilar fullness noted. No focal consolidation. No pleural effusion or pneumothorax. Procedure Note Derek Reagan MD - 01/27/2025 EXAM: X-RAY CHEST 2 VIEWS PA/LAT, 01/26/2025 5:06 pm HISTORY: cough; lower extremity edema COMPARISON: Chest radiograph August 11, 2024 TECHNIQUE: Upright frontal and lateral views FINDINGS: Cardiomediastinal silhouette is within normal limits. Mild pulmonaryvascular distention with mild bilateral hilar fullness noted. No focalconsolidation. No pleural effusion or pneumothorax. IMPRESSION: Mild pulmonary vasculature distention with bilateral hilar fullnessnoted. I, Dr. Derek Reagan have personally reviewed this report and concur withits findings and conclusions, as amended in the final report, as affirmedby my electronic signature. Resident/Fellow: Ebony Webb on 01/26/2025 5:21 PM Attending: Derek Reagan on 01/27/2025 7:22 AM us Yisel Rider PA-C RAD GEN IMAGING Final Resul t * Flu/RSV/SARS-CoV-2 Panel (01/26/2025 4:14 PM CDT) Influenza A Not Detected Not Detected 5:00 PM CDT [facility] Influenza B Not Detected Not Detected 5:00 PM CDT [facility] Respiratory Syncytial Virus Not Detected Not detected 01/26/2025 5:00 PM CDT [facility] SARS-CoV-2 Not Detected Not Detected 01/26/2025 5:00 PM CDT [facility] Respiratory NASOPHARYNGEAL STRUCTURE / Unknown Non-blood Collection / Unknown 01/26/2025 4:14 PM CDT 01/26/2025 4:18 PM CDT Narrative [facility] - 01/26/2025 5:00 PM CDT Methodology: Detection and differentiation of influenza A, influenza B, RSV and SARS-CoV-2 RNA is based upon reverse census clerk real-time PCR amplification and detection of genomic RNA on the [employer] GeneXpert platform. Performance characteristics have been determined as part of the Emergency Use Authorization. ?? [email or web address] us Yisel Rider PA-C LAB MICRO GENERAL ORDERABLE Final Result [facility] [address] [place], [place] [id number] [place] [address] * X-Ray DXA Bone Density 1+ Sites Axial (03/17/2021 1:55 PM CDT) Anatomical Region Laterality Modality Spine, Hip LT, Hip RT, Hip Other 03/17/2021 1:55 PM CDT Impressions 03/17/2021 1:59 PM CDT 1. Osteoporosis. 2. FRAX: 10 year fracture risk is 7.2% for major osteoporotic fracture and 2.1% for hip fracture. 3. TBS adjusted FRAX: 10 year fracture risk is 13% for major osteoporotic fracture and 3.6% for hip fracture. Attending: Aram Graff on 03/17/2021 1:58 PM Narrative 03/17/2021 1:59 PM CDT EXAM: X-RAY DXA BONE DENSITY 1+ SITES AXIAL, ??03/17/2021 1:55 pm HISTORY: Osteopenia of lumbar spine ??Osteopenia of lumbar spine COMPARISON: None FINDINGS: AP spine (L1-L4): T Score is -1.5 and Z Score is 0.1. This is compatible with a WHO classification of osteopenia. Left femoral neck: T Score is -2.9 and Z Score is -1.4. This is compatible with a WHO classification of osteoporosis. Left proximal femur total: T Score is -0.7 and Z Score is 0.2. This is compatible with a WHO classification of normal. Left radius 1/3: T score is -2.1 and Z score is 0.3. This is compatible with a WHO classification of osteopenia. TBS is 0.838. Procedure Note Aram Graff MD - 03/17/2021 EXAM: X-RAY DXA BONE DENSITY 1+ SITES AXIAL, 03/17/2021 1:55 pm HISTORY: Osteopenia of lumbar spine Osteopenia of lumbar spine COMPARISON: None FINDINGS: AP spine (L1-L4): T Score is -1.5 and Z Score is 0.1. This is compatiblewith a WHO classification of osteopenia. Left femoral neck: T Score is -2.9 and Z Score is -1.4. This is compatiblewith a WHO classification of osteoporosis. Left proximal femur total: T Score is -0.7 and Z Score is 0.2. This iscompatible with a WHO classification of normal. Left radius 1/3: T score is -2.1 and Z score is 0.3. This is compatiblewith a WHO classification of osteopenia. TBS is 0.838. IMPRESSION: 1. Osteoporosis. 2. FRAX: 10 year fracture risk is 7.2% for major osteoporotic fracture and2.1% for hip fracture. 3. TBS adjusted FRAX: 10 year fracture risk is 13% for major osteoporoticfracture and 3.6% for hip fracture. Attending: Aram Graff on 03/17/2021 1:58 PM us Jarrett Damon MD RAD GEN IMAGING Final Result from Last 3 Months or Most Recently Relevant to Health Maintenance [place] [place] [address] HEALTH CARE [address] [place] [id number] [place] [address] HEALTH CARE Advance Directives * Full Code (Latest Code Status on File) Date Activated Date Inactivated Comments 01/27/2025 5:42 PM * Full Code Date Activated Date Inactivated Comments 08/29/2021 6:35 AM 01/27/2025 5:42 PM * Full Code Date Activated Date Inactivated Comments 07/28/2020 8:22 AM 08/29/2021 6:35 AM * Full Code Date Activated Date Inactivated Comments 07/28/2020 8:19 AM 07/28/2020 8:22 AM * Full Code Date Activated Date Inactivated Comments 01/19/2020 7:09 AM 07/28/2020 8:19 AM Care Teams Timber Grader Relationship Specialty Start Date End Date Zoltan Mckeon MD [address] [facility] [address] [place] [address] PCP - General Internal Medicine 01/28/24 Dom Garrett MD Consulting Provider Cardiovascular Disease 06/09/18 Jermaine Steele MD [address] [facility] [address] [place] [address] Specialist Otolaryngology 11/04/18 Jarrett Damon MD [address] [place] [address] Anesthesiologist Anesthesiology 11/04/18 Jillian Jarquin MD [address] [place] [address] Specialist Critical Care Medicine 11/04/18
--- OUTSIDE RECORDS SUMMARY | 2025-02-28 20:02 | XMS_ITS | Encounter Summary ---
Author Organization [facility] Address [address] [place] [address] Care Team Providers Care Broaching Machine Set Up Operator Name Role Phone Dom Garrett MD Unavailable Jermaine Steele MD Unavailable [phone] Jarrett Damon MD Unavailable [phone] Jillian Jarquin MD Unavailable Unavailab Zoltan Guo MD Primary Care Provider [phone] Reason for Visit * Reason Onset Date Comments Refill Request 06/18/2024 Encounter Details Date Type Department Care Team (Late st Contact Info) Description 06/18/2024 Refill [facility] [address] [place] [address] Zoltan Mckeon MD [address] [place] [address] Refill Request Social History Tobacco Use Types Packs/Day Years Used Date Smoking Tobacco: Never Smokeless Tobacco: Never Alcohol Use Standard Drinks/Week Comments Not Currently 0 (1 standard drink = 0.6 oz pur e alcohol) AUDIT-C Answer Date Recorded Frequency of Alcohol Consumption 2-4 times a sat07/21/2019 Average Number of Drinks Not on file 019 Frequency of Binge Drinking Not on file 01/2019 Social Connections Answer Date Recorded Conversations with friends/family/neighbors per week Not on file 01/29/2021 Food Insecurity Answer Date Recorded Currently or in the past 3 m [facility], have you worried your food would run out before you had money to buy more? No 2023 In the past 12 months, have you run out of food or been unable to get more? No 01/28/2024 Transportation Needs Answer Date Record ed Currently or in the past 3 m [facility], has lack of transportation kept you from medical appointments, getting food or medicine, or providing care to a family member? Unrecognized value 01/28/2024 Not on file 01/28/2024 Medical Transportation Needs? No Daily Living Transportation Needs? [Peds Only] N ot on file 01/28/2024 Employment Status Answer Date Recorded Employment Need? No 01/28/2024 Utilities Answer Date Recorded Currently or in the past 12 months, have you or household members gone without utilities (heat, water, electricity)? No 01/28/2024 Interpersonal Safety Answer Date Record ed Safety Concerns? No 01/28/2024 Physical Safety Need? No 01/28/2024 Emotional Safety Need? No Housing Insecurity Answer Date Recorded Current Housing Need? No 01/28/2024 Housing Loss Worry? No 01/28/2024 Comments No Sex and Gender Information Value Date Recorded Sex Assigned at Female 05/02/2021 5:47 PM CDT Legal Sex Female 12:04 PM CDT Gender Identity Female 05/02/2021 5:47 PM CDT Sexual Orientation Not on file documented as of this encounter Miscellaneous Notes * Telephone Encounter - Josefina Deluca LPN - 06/18/2024 12:22 PM CDT Last office visit 04/29/24. Protocol Failed: needs labs Requested medication(s) are due for refill today: no Requested medication(s) are on the active medication list: no Patient has already received a courtesy refill: no Other reason request has been forwarded to provider: not on active med list documented in this encounter Plan of Treatment Upcoming Encounters Date Type Department Care Team (Late st Contact Info) Description 03/10/2025 1:40 PM CDT Office Visit [facility] [address] [place] [address] Zoltan Mckeon MD [address] [place] [address] 03/25/2025 2:45 PM CDT Office Visit [facility] [address] [place] [address] Luis Eduardo Walker MD [address] [facility] [address] [place] [address] 08/10/2025 2:00 PM CDT Office Visit [facility] [address] [place] [address] Mireya Locke MD [address] [place] [address] documented as of this encounter Visit Diagnoses Not on filedocumented in this encounter Additional Health Concerns Assessment Noted Time PHQ-2 Depression Total Score: 0 01/28/20 24 1:33 PM CDT documented as of this encounter Care Teams Broaching Machine Set Up Operator Relationship Specialty Start Date End Date Zoltan Mckeon MD [address] [place] [address] PCP - General Internal Medicine 01/28/24 Dom Garrett MD Consulting Provider Cardiovascular Disease 06/09/18 Jermaine Steele MD [address] [facility] [address] [place] [address] Specialist Otolaryngology 11/04/18 Jarrett Damon MD [address] [place] [address] Anesthesiologist Anesthesiology 11/04/18 Jillian Jarquin MD [address] [facility] [address] [place] [address] Specialist Critical Care Medicine 11/04/18 documented as of this encounter
--- OUTSIDE RECORDS SUMMARY | 2025-02-28 20:02 | XMS_ITS ---
Author Organization [facility] Address [address] [place], [place] [id number] Care Team Providers Care Kicking Machine Operator Name Role Phone MD Zoltan Mckeon Primary Care Provider Pradip Dsouza [phone] Allergies Allergen (clinical drug ingredient) Drug/Non Drug Allergy documented on EMR Reaction Allergy Type Onset Date Status Sulfa Unknown Drug Allergy Active Results Component Value Reference Range Notes OCT/HRT - NERVE Reviewed date:01/01/2024 04:04:16 PM Interpretation:STABLE OU Performing Lab: Notes/Report: STABLE OU OD 0.48 OS 0.80 REASON FOR VISIT Ongoing glaucoma surveillance Medications Medication SIG (Take, Route, Frequency, Duration) Notes Start Date End Date Status Allopurinol 100 MG 1 tablet Orally Once a day Active Atorvastatin Calcium 10 MG 1 tablet Oral ly Once a day Active predniSONE 10 MG 1 tablet Orally Once a day for 30 day(s) Active metOLazone 5 MG TAKE 1 TABLET BY KIMI TH DAILY NEEDED AND DIRECTED Oral for 30 Active NIFEdipine ER 90 MG 1 tablet on an empty stomach Orally Once a day for 30 day(s) Active Gabapentin 300 MG 1 capsule Orally Onc e a day for 30 day(s) Active Vitamin D2 Active Immunizations Vaccine Route Administration Date Status Comme nts Influenza (split), [address]7814 Six months and above Unknown 01/01/2024 Refused Encounters Encounter Location Date Provider Diagnosis [facility] [address] [place], [place] [id number] 01/01/2024 Pradip Urbina 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 Sicca, LT (ICD-10 - H16.222) LID RETRACTION, RULE OUT GRAVES DISEASE - [facility] 01/01/2024 Dry Eye K. Sicca, RT (ICD-10 - H16.221) LID RETRACTION, RULE OUT GRAVES DISEASE - [facility] 01/01/2024 Presence of intraocular lens (ICD-10 - Z96.1) LEFT FINE LID RETRACTION, RULE OUT GRAVES DISEASE - HAD BLOOD WORK IN [facility] Plan Of Treatment Next Appt Details Follow Up: 6 Months, Reason: Office visit, DILATE IOP Progress Notes * Fariha HATFIELD PDOB:1945 (79 yo F)Acc No.[id number]:01/01/2024 Patient:?Fariha HATFIELD P Provider:?Pradip Urbina M.D. :1945???Age:78 Y???Sex:Female D ate:01/01/2024 Address:[address] [place], [place] [id number] Pcp:MD Zoltan Mckeon Subjective: * Chief Complaints: * ???1. Ongoing glaucoma surve illance . * HPI: ???Visit type:? (4 month office visit). ???Dry Eye:? Persistent tearing; worse in the AM hrs; Using AT QD. ???Ophtho:? Patient denies changes in vision, FBS, redness, pain, photophobia, diplopia, discharge, floaters, or flashes. * Medical History:?poag PACHY 560/563 2011 , SLT OU 2011, pc iol OU, Exophoria. * Surgical History:?SLT OU , S LT OD 12-04-2019, SLT OS 09-11-19, Phaco/IOL OS 01-16-2022, PHACO/PC IOL OD 01-31-2023. * Ocular Surgical History:? * Hospitalization/Major Diagno stic Procedure:?back injections 2015. * Family History:?Mother: diag nosed with Cataracts.?Father: diagnosed with Cataracts.? No glaucoma. * Medications:?Taking Gabapent in 300 MG Capsule 1 capsule Orally Once a day , Taking Allopurinol 100 MG Tablet 1 tablet Orally Once a day , Taking Atorvastatin Calcium 10 MG Tablet 1 tablet Orally Once a day , Taking metOLazone 5 MG Tablet TAKE 1 TABLET BY MOUTH DAILY NEEDED AND DIRECTED Oral , Taking NIFEdipine ER 90 MG Tablet Extended Release 24 Hour 1 tablet on an empty stomach Orally Once a day , Taking predniSONE 10 MG Tablet 1 tablet Orally Once a day , Taking Vitamin D2 , Medication List reviewed and reconciled with the patient * Allergies:?Sulfa. Objective: Vision Examination:?Unaided Acuities OD 20/30 OS 20/40 OU ? IOP ? IOP OD OS Adj OD Adj OS Test 1 16 16 TA 03:12 PM EH ? * Examination: ???Tech Examination: ?PUPILS:?PERRL- APD3.0MM OU BROWN.?DILATING DROPS:? REQUESTS NO DILATION.?Ophthalmology: ?CONJUNCTIVA:?clear OU.?CORNEA? DRY 2+? OU, MILD BAND K OU.?SCLERA:?clear OU.?ANTERIOR CHAMBER:?D/Q OU.?IRIS:?WNL OU.?LENS? PCIOL fine OU (both eyes).?Glaucoma: ?EXPLORATION OF OPTIC NERVE (II)?Procedure Performed:?Yes ?OPHTHALMIC EXAMINATION AND EVALUATION?Procedure Performed:?Yes??? 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 LID RETRACTION, RULE OUT GRA VES DISEASE - HAD BLOOD WORK IN [place]. Plan: * Treatment: ? Value Reference Range ?OD 0.48 * ?OS 0.80 * Immunizations:? Influenza (split), [address] Six months and above : 0.5 mL (Not administered - Refused: Patient decision) ???Immunization record has been reviewed and updated. * Procedure Codes:?93776 OCT/H RT NERVE * Follow Up:?6 Months (Reason: Office visit, DILATE IOP ) * * Electronic signature of Jake Urbina MD on 02/28/2025 at 07:02 PM CDT Sign off status: Pending * Provider:?Pradip Urbina M.D. Date:? 01/01/2024 Generated for Nicole gunn/Tito/eTransmitting on:?02/28/2025 07:02 PM CDT History and Physical Notes * HPI (History of Present Illness) Category Sub-Category Detail Notes Category Not es Dry Eye Persistent tear ing; worse in the AM hrs; Using AT QD Ophtho Patient denies changes in vision, FBS, redness, pain, photophobia, diplopia, discharge, floaters, or flashes Visit type (4 month office visit) Examination Category Sub-Category Detail Notes Category Not es Ophthalmology CONJUNCTIVA: clear OU SCLERA: clear OU CORNEA DRY 2+ OU, MILD BAND K OU LENS PCIOL fine OU (both eyes) IRIS: WNL OU ANTERIOR CHAMBER: D/Q OU Tech Examination PUPILS: PERRL - APD 3.0MM OU BRO WN DILATING DROPS: REQUESTS NO DILATION Glaucoma OPHTHALMIC EXAMINATION AND EVALUATION Procedure Performed:: Yes EXPLORATION OF OPTIC NERVE (II) Procedure Perfor med:: Yes
--- OUTSIDE RECORDS SUMMARY | 2025-02-28 20:03 | XMS_ITS ---
Author Organization [facility] icians [facility] Address [address] [id number] Care Team Providers Care Geospatial Applications Developer Name Role Phone Jimbo Mckeon MD Unavailable Unavailable MELITON DAMON Unavailable [phone] Allergies Allergen (clinical drug ingredient) Drug/Non Drug Allergy documented on EMR Reaction Allergy Type Onset Date Status SULFA Unknown Drug Allergy Active REASON FOR VISIT low back pain Medications Medication SIG (Take, Route, Frequency, Duration) Notes Start Date End Date Status Vitamin D 50 MCG (1999) 1 tablet Orally Once a day Active metOLazone 5 MG 1 tablet Orally Once a day Active Tylenol Arthritis Pain Active Allopurinol 100 MG 1 tablet Orally Once a day Active Atorvastatin Calcium 10 MG 1 tablet Orally Once a day Active predniSONE 10 MG 1 tablet Orally Once a day Active Nortriptyline HCl 25 MG TAKE 1 CAPSULE BY MOUTH AT BEDTIME ONCE A DAY ORALLY 90 DAYS for 90 Active Lyrica 50 MG 1 capsule Orally at bedtime for 30 days 01/02/2023 Active CeleBREX 100 MG 1 capsule with food Orally Once a day for 30 days PRN not every day 12/16/2019 Not-Taking traMADol HCl 50 MG 1 tablet as needed Orally PRN 01/24/2021 Not-Taking Social History Tobacco Use: Social History Observation Description Date Details (start date - stop date) Never Smoker NA - NA Tobacco Use/Smoking Question Answer Notes Are you a nonsmoker Alcohol Screen (Audit-C) Question Answer Notes Did you have a drink contain ing alcohol in the past year? Yes How often did you have a dri nk containing alcohol in the past year? 4 or more times a week (4 points) How many drinks did you have on a typical day when you were drinking in the past year? 1 or 2 drinks (0 point) How often did you have 6 or more drinks on one occasion in the past year? Never (0 point) Points 4 Interpretation Positive Tobacco use other than smoking: Question Answer Notes Are you an other tobacco user? No Vital Signs Height 62 in 11/27/2023 Weight 185 lbs 11/27/2023 BMI 33.83 kg/m2 11/27/2023 Encounters Encounter Location Date Provider Diagnosis [facility] at [address] [place] [address] [address] 11/27/2023 MELITON DAMON Plan Of Treatment Next Appt Details Provider Name:MELITON DAMON , 03/11/2025 12:40:00 PM, [address] [facility] [place] [address], [place], [address], Progress Notes * Fariha HATFIELDDOB:1945 ( 79 yo F)Acc No.[id number]:11/27/2023 Progress Notes Patient:?Fariha HATFIELD Provider:?Meliton Damon MD :1945???Age:78 Y???Sex:Female D ate:11/27/2023 Address:[address] [place] [address] Subjective: * Chief Complaints: * ???1. Low back pain. * Medical History:?Osteoarthri tis, Gout, HTN. * Surgical History:?LESI x3 20 17, appendectomy , right ovary removed , colonscopy . * Hospitalization/Major Diagno stic Procedure:?Fall at home 11/21/2018, Patient has had COVID vaccine . * Family History:?No Family Hi story documented..? * Social History:?Tobacco Use:?Tobacco Use/Smoking?Are you a?nonsmoker.?Tobacco use other than smoking?Are you an other tobacco user??No.?Drugs/Alcohol:?Drugs?Have you used drugs other than those for medical reasons in the past 12 months??No.?Alcohol Screen (Audit-C)?Did you have a drink containing alcohol in the past year? Yes,?How often did you have a drink containing alcohol in the past year??4 or more times a week (4 points),?How many drinks did you have on a typical day when you were drinking in the past year??1 or 2 drinks (0 point),?How often did you have 6 or more drinks on one occasion in the past year??Never (0 point),?Points?4,?Interpretation?Positive.? * Medications:?Taking Vitamin D 50 MCG (2000 UT) Tablet 1 tablet Orally Once a day , Taking metOLazone 5 MG Tablet 1 tablet Orally Once a day , Taking Tylenol Arthritis Pain , Taking Allopurinol 100 MG Tablet 1 tablet Orally Once a day , Taking Atorvastatin Calcium 10 MG Tablet 1 tablet Orally Once a day , Taking predniSONE 10 MG Tablet 1 tablet Orally Once a day , Taking Nortriptyline HCl 25 MG Capsule TAKE 1 CAPSULE BY MOUTH AT BEDTIME ONCE A DAY ORALLY 90 DAYS , Taking Lyrica 50 MG Capsule 1 capsule Orally at bedtime , Not-Taking/PRN CeleBREX 100 MG Capsule 1 capsule with food Orally Once a day , Notes to Pharmacist: PRN not every day, Not-Taking/PRN traMADol HCl 50 MG Tablet 1 tablet as needed Orally PRN , Medication List reviewed and reconciled with the patient * Allergies:?SULFA. Objective: * Vitals:?Ht: 62 in, Wt:185lbs , BMI:33.83Index, Ht-cm: 157.48 cm, Wt-k.91 kg. Assessment: Plan: * Treatment: * Images: * Electronic signature of KARON DAMON MD on 02/28/2025 at 07:03 PM CDT Sign off status: Pending * Provider:?Meliton Damon MD Date:?08/2024 Generated for Nicole gunn/Tito/Milliitting on:?02/28/2025 07:03 PM CDT
--- OUTSIDE RECORDS SUMMARY | 2025-02-28 20:03 | XMS_ITS | Encounter Summary ---
Author Organization [facility] Address [address] [place] [address] Care Team Providers Care Pilot Control Operator Helper Name Role Phone Dom Garrett MD Unavailable Jermaine Steele MD Unavailable [phone] Jarrett Damon MD Unavailable [phone] Jillian Jarquin MD Unavailable Unavailab Zoltan Guo MD Primary Care Provider Reason for Visit * Reason Onset Date Comments Refill Request 04/16/2024 Encounter Details Date Type Department Care Team (Late st Contact Info) Description 04/16/2024 Refill [facility] [address] [place] [address] Zoltan Mckeon MD [address] [place] [address] Refill Request Social History Tobacco Use Types [...] Currently or in the past 3 m [facility], have you worried your food would run [...] encounter Miscellaneous Notes * Telephone Encounter - Aram Santos RN - 04/16/2024 1:25 PM CDT Cannot delegate this medication. Request routed to PCP. Medication Dispense History (from 04/17/2023 to 04/16/2024) Dispensed Quantity Refills Strength Provider Pharmacy TRAMADOL HCL 03/20/2024 90 50 JOE HUTCHINSON MD [id number] GABAPENTIN 01/28/2024 360 100 ZOLTAN PETT [id number] TRAMADOL HCL 01/28/2024 14 50 ZOLTAN PETT [id number] GABAPENTIN 12/12/2023 150 100 JOE HUTCHINSON MD [id number] GABAPENTIN 11/14/2023 120 100 JOE HUTCHINSON MD [facility] GABAPENTIN 10/17/2023 90 100 JOE HUTCHINSON MD [id number] GABAPENTIN 05/31/2023 30 600 ROLANDO QUINTERO [id number] documented in this encounter Plan of Treatment Upcoming Encounters Date Type Department Care Team (Late st Contact Info) Description 03/10/2025 1:40 PM CDT Office Visit [facility] [address] [place] [address] Zoltan Mckeon MD [address] [place] [address] 03/25/2025 2:45 PM CDT Office Visit [facility] [address] [place] [address] Luis Eduardo Walker MD [address] [place] [address] 08/10/2025 2:00 PM CDT Office Visit [facility] [address] [place] [address] Mireya Locke MD [address] [place] [address] documented as of this encounter Visit Diagnoses Not on filedocumented in this encounter Additional Health Concerns Assessment Noted Time PHQ-2 Depression Total Score: 0 01/28/20 24 1:33 PM CDT documented as of this encounter Care Teams Pilot Control Operator Helper Relationship Specialty Start Date End Date Zoltan Mckeon MD [address] [place] [address] PCP - General Internal Medicine 01/28/24 Dom Garrett MD Consulting Provider Cardiovascular Disease 06/09/18 Jermaine Steele MD [address] [facility] [address] [place] [address] Specialist Otolaryngology 11/04/18 Jarrett Damon MD [address] [place] [address] Anesthesiologist Anesthesiology 11/04/18 Jillian Jarquin MD [address] [place] [address] Specialist Critical Care Medicine 11/04/18 documented as of this encounter
--- OUTSIDE RECORDS SUMMARY | 2025-02-28 20:03 | XMS_ITS | Encounter Summary ---
Author Organization [facility] Address [address] [place] [address] Care Team Providers Care Screw Machine Operator Name Role Phone Jimbo Mckeon MD Primary Care Provider [phone] Dom Garrett MD Unavailable Jermaine Steele MD Unavailable [phone] Jarrett Damon MD Unavailable Jillian Jarquin MD Unavailable Unavailab Zoltan Guo MD Primary Care Provider [phone] Encounter Details Date Type Department Care Team (Late st Contact Info) Description 03/09/2021 Community Orders [facility] [address] [place] [address] Liam Nicole MD [address] [place] [address] Surgery, elective (Primary Dx) Social History Tobacco Use Types Packs/Day Years [...] friends/family/neighbors per week Not on file 01/29/2021 Comments No Sex and Gender Information Value Date Recorded Sex Assigned at Female 05/02/2021 5:47 PM CDT Legal Sex Female 12:04 PM CDT Gender Identity Female 05/02/2021 5:47 PM CDT Sexual Orientation Not on file documented as of this encounter Plan of Treatment Upcoming Encounters Date Type Department Care Team (Late st Contact Info) Description 03/10/2025 1:40 PM CDT Office Visit [facility] [address] [place] [address] Zoltan Mckeon MD [address] [place] [address] 03/25/2025 2:45 PM CDT Office Visit [facility] V[facility] Surgery [address] [place] [address] Luis Eduardo Walker MD [address] [facility] [address] [place] [address] 08/10/2025 2:00 PM CDT Office Visit [facility] Card[facility] [address] [place] [address] Mireya Locke MD [address] [place] [address] documented as of this encounter Visit Diagnoses Diagnosis Surgery, elective- Primary Unspecified elective surgery for purposes other than remedying health states documented in this encounter Additional Health Concerns Infection Onset Date Last Indicated Resolved Time Confirmed- COVID19 12/11/2021 12/11/2021 4:44 AM 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 Assessment Noted Time PHQ-2 Depression Total Score: 0 06/09/20 18 8:03 AM CDT documented as of this encounter Care Teams Screw Machine Operator Relationship Specialty Start Date End Date Jimbo Mckeon MD PCP - General Family Medicine 07/31/16 01/27/24 Zoltan Mckeon MD [address] [place] [address] PCP - General Internal Medicine 01/28/24 Dom Garrett MD Consulting Provider Cardiovascular Disease 06/09/18 Jermaine Steele MD [address] [facility] [address] [place] [address] Specialist Otolaryngology 11/04/18 Jarrett Damon MD [address] [place] [address] Anesthesiologist Anesthesiology 11/04/18 Jillian Jarquin MD [address] [place] [address] Specialist Critical Care Medicine 11/04/18 documented as of this encounter
--- OUTSIDE RECORDS SUMMARY | 2025-02-28 20:03 | XMS_ITS ---
Author Organization [facility] Address [address] [facility] [address] [place], [place] [address] Care Team Providers Care Sewer And Cutter Finger Buff Material Name Role Phone Jimbo Mckeon MD Unavailable Unavailable MELITON DAMON Unavailable [phone] REASON FOR VISIT LM to reschedule Encounters Encounter Location Date Provider Diagnosis [facility] [address] [facility] [address] [place] [address] 09/16/2023 MELITON DAMON Plan Of Treatment Next Appt Details Provider Name:MELITON DAMON , 03/11/2025 12:40:00 PM, [address] [facility] [address], [place], [address], Progress Notes * Fariha HATFIELDDOB:1945 ( 79 yo F)Acc No.[id number]:09/16/2023 Progress Notes Patient:?Fariha HATFIELD Provider:?Meliton Damon MD :1945???Age:78 Y???Sex:Female D ate:09/16/2023 Address:[address] [place] [address] , [address], [facility] Subjective: * Chief Complaints: * ???1. LM to reschedule. * Medical History:? Objective: * Vitals:? Assessment: Plan: * Treatment: * Images: * Electronic signature of KARON DAMON MD on 02/28/2025 at 07:02 PM CDT Sign off status: Pending * Provider:?Meliton Damon MD Date:? Generated for Nicole gunn/Tito/Jhonny on:?02/28/2025 07:02 PM NIKHIL
--- OUTSIDE RECORDS SUMMARY | 2025-02-28 20:03 | XMS_ITS | Encounter Summary ---
Author Organization [facility] Address [address] [place] [address] Care Team Providers Care Buckle Strap Drum Operator Name Role Phone Jimbo Mckeon MD Primary Care Provider [phone] Dom Garrett MD Unavailable Jermaine Steele MD Unavailable [phone] Jarrett Damon MD Unavailable Jillian Jarquin MD Unavailable Unavailab Zoltan Guo MD Primary Care Provider [phone] Reason for Referral * Transition of Care (Routine) - Closed Specialty Diagnoses / Procedures Referred By Evelia cho Referred To Contact Diagnoses Surgery, elective Jarrett Damon MD [address] [facility] [address], [facility] [address] Phone: tel: fax: Referral ID Status Reason Start Date Expiration Date Visits Re quested Visits Authorized [id number] Closed 01/03/2022 01/31/2023 10 10 Question Answer Referral is for: Pre-procedure Testing (Drive Thru) Expected Procedure/Surgery Date?: 01/23/2022 HOLOGICAL STRESS EVALUATOR Encounter Details Date Type Department Care Team (Late st Contact Info) Description 01/03/2022 Community Orders [facility] [address] [place] [address] Jarrett Damon MD [address] [facility] [address], [place] [address] Surgery, elective (Primary Dx) Social History Tobacco [...] Description 03/10/2025 1:40 PM CDT Office Visit [facility] [address] [place] [address] Zoltan Mckeon MD [address] [place] [address] 03/25/2025 2:45 PM CDT Office Visit [facility] [address] [place] [address] Luis Eduardo Walker MD [address] [facility] [address] [place] [address] 08/10/2025 2:00 PM CDT Office Visit [facility] [address] [place] [address] Mireya Locke MD [address] [place] [address] Scheduled Referrals Name Type Priority Associated Diagnoses Orde r Schedule Request for COVID Clinic (Pre-Procedure Drive-Thru Testing) Referral Routine Surgery, elective Ordered: 01/03/2022 documented as of this encounter Visit Diagnoses Diagnosis Surgery, elective- Primary Unspecified elective surgery for purposes other than remedying health states documented in this encounter Additional Health Concerns Infection Onset Date Last Indicated Resolved Time Confirmed- COVID19 12/11/2021 12/11/2021 2 4:44 AM PSYCHOLOGICAL STRESS EVALUATOR Assessment Noted Time PHQ-2 Depression Total Score: 0 06/09/20 18 8:03 AM CDT documented as of this encounter Care Teams Buckle Strap Drum Operator Relationship Specialty Start Date End Date Jimbo Mckeon MD PCP - General Family Medicine 07/31/16 01/27/24 Zoltan Mckeon MD [address] [place] [address] PCP - General Internal Medicine 01/28/24 Dom Garrett MD Consulting Provider Cardiovascular Disease 06/09/18 Jermaine Steele MD [address] [address] Specialist Otolaryngology 11/04/18 Jarrett Damon MD [address] [place] [address] Anesthesiologist Anesthesiology 11/04/18 Jillian Jarquin MD [address] [place] [address] Specialist Critical Care Medicine 11/04/18 documented as of this encounter
--- OUTSIDE RECORDS SUMMARY | 2025-02-28 20:03 | XMS_ITS | Encounter Summary ---
Author Organization [facility] Address [address] [place] [address] Care Team Providers Care Social Welfare Administrator Name Role Phone Jimbo Mckeon MD Primary Care Provider [phone] Dom Garrett MD Unavailable Jermaine Steele MD Unavailable [phone] Jarrett Damon MD Unavailable [phone] Jillian Jarquin MD Unavailable Unavailab Zoltan Guo MD Primary Care Provider [phone] Reason for Referral * Transition of Care (Routine) - Closed Specialty Diagnoses / Procedures Referred By Evleia cho Referred To Contact Diagnoses Surgery, elective Jarrett Damno MD [address] [facility] [address], [facility] [place] [address] Phone: tel: fax: Referral ID Status Reason Start Date Expiration Date Visits Re quested Visits Authorized [id number] Closed 12/13/2021 01/13/2023 10 10 Question Answer Referral is for: Pre-procedure Testing (Drive Thru) Expected Procedure/Surgery Date?: 12/21/2021 CTOR CLINICAL RESEARCH Encounter Details Date Type Department Care Team (Late st Contact Info) Description 12/13/2021 Community Orders [facility] [address] [place] [address] Jarrett Damon MD [address] [facility] [address], [place] [address] Surgery, elective (Primary Dx) Social History Tobacco [...] Description 03/10/2025 1:40 PM CDT Office Visit [facility] [address] [place] [address] Zoltan Mckeon MD [address] [place] [address] 03/25/2025 2:45 PM CDT Office Visit [facility] [address] [place] [address] Luis Eduardo Walker MD [address] [facility] [address] [place] [address] 08/10/2025 2:00 PM CDT Office Visit [facility] [address] [place] [address] Mireya Locke MD [address] [place] [address] Scheduled Referrals Name Type Priority Associated Diagnoses Orde r Schedule Request for COVID Clinic (Pre-Procedure Drive-Thru Testing) Referral Routine Surgery, elective Ordered: 12/13/2021 documented as of this encounter Visit Diagnoses Diagnosis Surgery, elective- Primary Unspecified elective surgery for purposes other than remedying health states documented in this encounter Additional Health Concerns Infection Onset Date Last Indicated Resolved Time Confirmed- COVID19 12/11/2021 12/11/2021 2 4:44 AM DIRECTOR CLINICAL RESEARCH Assessment Noted Time PHQ-2 Depression Total Score: 0 06/09/20 18 8:03 AM CDT documented as of this encounter Care Teams Social Welfare Administrator Relationship Specialty Start Date End Date Jimbo Mckeon MD PCP - General Family Medicine 07/31/16 01/27/24 Zoltan Mckeon MD [address] [place] [address] PCP - General Internal Medicine 01/28/24 Dom Garrett MD Consulting Provider Cardiovascular Disease 06/09/18 Jermaine Steele MD [address] [address] Specialist Otolaryngology 11/04/18 Jarrett Damon MD [address] [place] [address] Anesthesiologist Anesthesiology 11/04/18 Jillian Jarquin MD [address] [place] [address] Specialist Critical Care Medicine 11/04/18 documented as of this encounter
--- OUTSIDE RECORDS SUMMARY | 2025-02-28 20:03 | XMS_ITS | Referral Summary ---
Author Organization [facility] Address [address] [place] [address] Care Team Providers Care Desk Pen Set Assembler Name Role Phone Jimbo Mckeon MD Primary Care Provider [phone] Immunizations Immunization Administration Dates Next Due High Dose Fluzone Influenza Vaccine, 65yr+ PF 0.5mL (55524) 09/15/2015 Social History Tobacco Use Types Packs/Day Years Used Date Smoking Tobacco: Never Assessed Comments Unknown Sex and Gender Information Value Date Recorded Sex Assigned at Not on file Legal Sex Female 1:58 PM CDT Gender Identity Not on file Sexual Orientation Not on file Plan of Treatment Not on file Insurance [employer] PPO Care Teams Desk Pen Set Assembler Relationship Specialty Start Date End Date Jimbo Mckeon MD [address] [place] [address] PCP - General Family Medicine 09/15/15
--- OUTSIDE RECORDS SUMMARY | 2025-02-28 20:03 | XMS_ITS | Encounter Summary ---
Author Organization [facility] Address [address] [place] [address] Care Team Providers Care Neurology Specialist Name Role Phone Jimbo Mckeon MD Primary Care Provider [phone] Dom Garrett MD Unavailable Jermaine Steele MD Unavailable [phone] Jarrett Damon MD Unavailable [phone] Jillian Jarquin MD Unavailable Unavailab Zoltan Guo MD Primary Care Provider [phone] Reason for Referral * Transition of Care (Routine) - Closed Specialty Diagnoses / Procedures Referred By Evelia cho Referred To Contact Diagnoses Surgery, elective Jarrett Damon MD [address] [facility] [address], [facility] [place] [address] Phone: tel: fax: Referral ID Status Reason Start Date Expiration Date Visits Re quested Visits Authorized [id number] Closed 12/08/2021 01/08/2023 10 10 Question Answer Referral is for: Pre-procedure Testing (Drive Thru) Expected Procedure/Surgery Date?: 12/14/2021 HER ROLLER Encounter Details Date Type Department Care Team (Late st Contact Info) Description 12/08/2021 Community Orders [facility] [address] [place] [address] Jarrett Damon MD [address] [facility] [address], [place] [address] Surgery, elective (Primary Dx) Social History Tobacco [...] Description 03/10/2025 1:40 PM CDT Office Visit [facility] [address] [place] [address] Zoltan Mckeon MD [address] [place] [address] 03/25/2025 2:45 PM CDT Office Visit [facility] V[facility] Surgery [address] [place] [address] Luis Eduardo Walker MD [address] [facility] [address] [place] [address] 08/10/2025 2:00 PM CDT Office Visit [facility] [address] [place] [address] Mireya Locke MD [address] [place] [address] Scheduled Referrals Name Type Priority Associated Diagnoses Orde r Schedule Request for COVID Clinic (Pre-Procedure Drive-Thru Testing) Referral Routine Surgery, elective Ordered: 12/08/2021 documented as of this encounter Visit Diagnoses Diagnosis Surgery, elective- Primary Unspecified elective surgery for purposes other than remedying health states documented in this encounter Additional Health Concerns Infection Onset Date Last Indicated Resolved Time Confirmed- COVID19 12/11/2021 12/11/2021 2 4:44 AM LEATHER ROLLER Assessment Noted Time PHQ-2 Depression Total Score: 0 06/09/20 18 8:03 AM CDT documented as of this encounter Care Teams Neurology Specialist Relationship Specialty Start Date End Date Jimbo Mckeon MD PCP - General Family Medicine 07/31/16 01/27/24 Zoltan Mckeon MD [address] [place] [address] PCP - General Internal Medicine 01/28/24 Dom Garrett MD Consulting Provider Cardiovascular Disease 06/09/18 Jermaine Steele MD [address] [address] Specialist Otolaryngology 11/04/18 Jarrett Damon MD [address] [place] [address] Anesthesiologist Anesthesiology 11/04/18 Jillian Jarquin MD [address] [place] [address] Specialist Critical Care Medicine 11/04/18 documented as of this encounter
--- OUTSIDE RECORDS SUMMARY | 2025-02-28 20:03 | XMS_ITS ---
Author Organization [facility] Address [address] [facility] [address] [place], [place] [address] Care Team Providers Care Gear Lapper Name Role Phone MD Zoltan Mckeon Primary Care Provider Pradip Dsouza [facility] [phone] REASON FOR VISIT ONGOING GLAUCOMA SURVEILLANCE Encounters Encounter Location Date Provider Diagnosis [facility] [address] [facility] [address] [place], [place] [address] 06/30/2024 Pradip Urbina Plan Of Treatment No Information Progress Notes * Fariha HATFIELD PDOB:1945 (79 yo F)Acc No.[id number]:06/30/2024 Progress Notes Patient:?Fariha HATFIELD Provider:?Pradip Urbina M.D. :1945???Age:79 Y???Sex:Female D ate:06/30/2024 Address:[address] [place] [address] , [facility] [address] Pcp:MD Zoltan Mckeon Subjective: * Chief Complaints: * ???1. ONGOING GLAUCOMA SURVE ILLANCE. * HPI: ???Visit type:? (6 month office visit) . ???Medications:?Drops:?AT .? * Medical History:? * Ocular Surgical History:? Objective: Vision Examination:?IOP IOP OD OS Adj OD 0 GAT ? * Examination: ???Tech Examination: ?PUPILS:?PERRL- APD3.0MM OU BROWN.?DILATING DROPS:?Mydriacyl 1%OU Pt warned of glare@.?Glaucoma: ?EXPLORATION OF OPTIC NERVE (II)?Procedure Performed:?Yes ?OPHTHALMIC EXAMINATION AND EVALUATION?Procedure Performed:?Yes??? Assessment: Plan: * Treatment: * * Electronic signature of Jake Urbina MD on 02/28/2025 at 07:03 PM CDT Sign off status: Pending * Provider:?Pradip Urbina M.D. Date:? 06/30/2024 Generated for Nicole gunn/Tito/eTransmitting on:?02/28/2025 07:03 PM CDT History and Physical Notes * HPI (History of Present Illness) Category Sub-Category Detail Notes Category Not es Medications Drops: AT Visit type (6 month office visit) Examination Category Sub-Category Detail Notes Category Not es Tech Examination PUPILS: PERRL - APD 3.0MM OU BRO WN DILATING DROPS: Mydriacyl 1% OU Pt w arned of glare @ Glaucoma OPHTHALMIC EXAMINATION AND EVALUATION Procedure Performed:: Yes EXPLORATION OF OPTIC NERVE (II) Procedure Perfor med:: Yes
--- OUTSIDE RECORDS SUMMARY | 2025-02-28 20:03 | XMS_ITS | Encounter Summary ---
Author Organization [facility] Address [address] [place] [address] Care Team Providers Care Barrel Rifler Operator Name Role Phone Jimbo Mckeon MD Primary Care Provider [phone] Dom Garrett MD Unavailable Jermaine Steele MD Unavailable [phone] Jarrett Damon MD Unavailable [phone] Jillian Jarquin MD Unavailable Unavailab Zoltan Guo MD Primary Care Provider [phone] Reason for Referral * Transition of Care (Routine) - Closed Specialty Diagnoses / Procedures Referred By Evelia cho Referred To Contact Diagnoses Arthropathy of both sacroiliac joints Jarrett Damon MD [address] [facility] [address], [facility] [place] [address] Phone: tel: fax: Referral ID Status Reason Start Date Expiration Date Visits Re quested Visits Authorized [id number] Closed 07/20/2020 08/19/2021 10 10 Question Answer Referral is for: Pre-procedure Testing (Drive Thru) Expected Procedure/Surgery Date?: 07/28/2020 Encounter Details Date Type Department Care Team ([facility] st Contact Info) Description 07/20/2020 Community Orders OPERATING ROOM [address] [facility] [place] [address] Jarrett Damon MD [address] [facility] [address], [place] [address] Arthropathy of both sacroiliac joints (Primary Dx) Social History Tobacco Use Types Packs/Day Years Used Date Smoking Tobacco: Never Smokeless Tobacco: Never Alcohol Use Standard Drinks/Week Comments Not Currently 0 (1 standard drink = 0.6 oz pur e alcohol) AUDIT-C Answer Date Recorded Frequency of Alcohol Consumption 2-4 times a sat07/21/2019 Average Number of Drinks Not on file 019 Frequency of Binge Drinking Not on file 01/2019 Comments No Sex and Gender Information Value Date Recorded Sex Assigned at Female 05/02/2021 5:47 PM CDT Legal Sex Female 12:04 PM CDT Gender Identity Female 05/02/2021 5:47 PM CDT Sexual Orientation Not on file documented as of this encounter Plan of Treatment Upcoming Encounters Date Type Department Care Team (Late st Contact Info) Description 03/10/2025 1:40 PM CDT Office Visit [facility] [address] [place] [address] Zoltan Mckeon MD [address] [place] [address] 03/25/2025 2:45 PM CDT Office Visit [facility] [address] [place] [address] Luis Eduardo Walker MD [address] [facility] [address] [place] [address] 08/10/2025 2:00 PM CDT Office Visit [facility] [address] [place] [address] Mireya Locke MD [address] [place] [address] Scheduled Referrals Name Type Priority Associated Diagnoses Orde r Schedule Request for COVID Clinic (Pre-Procedure Drive-Thru Testing) Referral Routine Arthropathy of both sacroiliac joints Ordered: 07/20/2020 documented as of this encounter Visit Diagnoses Diagnosis Arthropathy of both sacroiliac joints- Primary documented in this encounter Additional Health Concerns Infection Onset Date Last Indicated Resolved Time Confirmed- COVID19 12/11/2021 12/11/2021 2 4:44 AM SUPERVISOR RIVETING Assessment Noted Time PHQ-2 Depression Total Score: 0 06/09/20 18 8:03 AM CDT documented as of this encounter Care Teams Barrel Rifler Operator Relationship Specialty Start Date End Date Jimbo Mckeon MD PCP - General Family Medicine 07/31/16 01/27/24 Zoltan Mckeon MD [address] [place] [address] PCP - General Internal Medicine 01/28/24 Dom Garrett MD Consulting Provider Cardiovascular Disease 06/09/18 Jermaine Steele MD [address] [address] Specialist Otolaryngology 11/04/18 Jarrett Damon MD [address] [place] [address] Anesthesiologist Anesthesiology 11/04/18 Jillian Jarquin MD [address] [place] [address] Specialist Critical Care Medicine 11/04/18 documented as of this encounter
--- OUTSIDE RECORDS SUMMARY | 2025-02-28 20:03 | XMS_ITS | Clinical Summary ---
Author Organization [facility] Address [address] [place] [address] Care Team Providers Care Criminal Lawyer Name Role Phone Jimbo Mckeon MD Primary Care Provider [phone] Immunizations Immunization Administration Dates Next Due High Dose Fluzone Influenza Vaccine, 65yr+ PF 0.5mL (39223) 09/15/2015 Social History Tobacco Use Types Packs/Day Years Used Date Smoking Tobacco: Never Assessed Comments Unknown Sex and Gender Information Value Date Recorded Sex Assigned at Not on file Legal Sex Female 1:58 PM CDT Gender Identity Not on file Sexual Orientation Not on file Plan of Treatment Health Maintenance Due Date Last Done Comments Annual Physical 1945 Insurance [employer] PPO Care Teams Criminal Lawyer Relationship Specialty Start Date End Date Jimbo Mckeon MD [address] [place] [address] PCP - General Family Medicine 09/15/15
--- OUTSIDE RECORDS SUMMARY | 2025-02-28 20:03 | XMS_ITS | Encounter Summary ---
Author Organization [facility] Address [address] [place] [address] Care Team Providers Care Category Manager Name Role Phone Jimbo Mckeon MD Primary Care Provider [phone] Dom Garrett MD Unavailable Jermaine Steele MD Unavailable [phone] Jarrett Damon MD Unavailable Jillian Jarquin MD Unavailable Unavailab Zoltan Guo MD Primary Care Provider [phone] Reason for Referral * Transition of Care (Routine) - Closed Specialty Diagnoses / Procedures Referred By Evelia cho Referred To Contact Diagnoses Surgery, elective Jarrett Damon MD [address] [facility] [address], [facility] [place] [address] Phone: tel: fax: Referral ID Status Reason Start Date Expiration Date Visits Re quested Visits Authorized [id number] Closed 03/10/2021 04/09/2022 10 10 Question Answer Referral is for: Pre-procedure Testing (Drive Thru) Expected Procedure/Surgery Date?: 03/22/2021 Encounter Details Date Type Department Care Team ([facility] st Contact Info) Description 03/10/2021 Community Orders [facility] Anesthesia [address] [place] [address] Jarrett Damon MD [address] [facility] [address], [place] [address] Surgery, elective (Primary Dx) Social History Tobacco [...] Description 03/10/2025 1:40 PM CDT Office Visit [facility] Adult Medicine [address] [place] [address] Zoltan Mckeon MD [address] [place] [address] 03/25/2025 2:45 PM CDT Office Visit [facility] Vascular Surgery [address] [place] [address] Luis Eduarod Walker MD [address] [place] [address] 08/10/2025 2:00 PM CDT Office Visit [facility] Cardiology [address] [place] [address] Mireya Locke MD [address] [place] [address] Scheduled Referrals Name Type Priority Associated Diagnoses Orde r Schedule Request for COVID Clinic (Pre-Procedure Drive-Thru Testing) Referral Routine Surgery, elective Ordered: 03/10/2021 documented as of this encounter Visit Diagnoses Diagnosis Surgery, elective- Primary Unspecified elective surgery for purposes other than remedying health states documented in this encounter Additional Health Concerns Infection Onset Date Last Indicated Resolved Time Confirmed- COVID19 12/11/2021 12/11/2021 2 4:44 AM GALLERY DIRECTOR Assessment Noted Time PHQ-2 Depression Total Score: 0 06/09/20 18 8:03 AM CDT documented as of this encounter Care Teams Category Manager Relationship Specialty Start Date End Date Jimbo Mckeon MD PCP - General Family Medicine 07/31/16 01/27/24 Zoltan Mckeon MD [address] [place] [address] PCP - General Internal Medicine 01/28/24 Dom Garrett MD Consulting Provider Cardiovascular Disease 06/09/18 Jermaine Steele MD [address] [facility] [address] [place] [address] Specialist Otolaryngology 11/04/18 Jarrett Damon MD [address] [place] [address] Anesthesiologist Anesthesiology 11/04/18 Jillian Jarquin MD [address] [place] [address] Specialist Critical Care Medicine 11/04/18 documented as of this encounter
--- OUTSIDE RECORDS SUMMARY | 2025-02-28 20:03 | XMS_ITS | Patient Health Record ---
Author Organization [facility] Address [address] [id number] Care Team Providers Care Sheriff Deputy Name Role Phone Jimbo Mckeon MD Unavailable Unavailable Allergies Allergen (clinical drug ingredient) Drug/Non Drug Allergy documented on EMR Reaction Allergy Type Onset Date Status SULFA Unknown Drug Allergy Active Reason For Referral No Information Medications Medication [...] Are you an other tobacco user? No Section Notes: Ms. Manzano grew up in [place] , an only child. Her father worked for the post office; he at 71 with colon cancer. Her mother at 91, 20 years ago. Ms. Manzano earned a BA from [employer] and an MA in theology from [employer]. She has never , as she belongs to a baptist mormonism. 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 She retired last October, in large part due to her pain and limitations. Ms. Manzano grew up in [place] , an only child. Her father worked for the post office; he at 71 with colon cancer. Her mother at 91, 20 years ago. Ms. Manzano earned a BA from [employer] and an MA in theology from [employer]. She has never , as she belongs to a baptist mormonism. 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 She retired last October, in large part due to her pain and limitations. Ms. Manzano grew up in [place] , an only child. Her father worked for the post office; he at 71 with colon cancer. Her mother at 91, 20 years ago. Ms. Manzano earned a BA from [employer] and an MA in theology from [employer]. She has never , as she belongs to a baptist mormonism. 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 She retired last October, in large part due to her pain and limitations. Ms. Manzano grew up in [place] , an only child. Her father worked for the post office; he at 71 with colon cancer. Her mother at 91, 20 years ago. Ms. Manzano earned a BA from [employer] and an MA in theology from [employer]. She has never , as she belongs to a baptist mormonism. 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 She retired last October, in large part due to her pain and limitations. 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) Active confirmed Problem [id number] Primary osteoarthritis of right knee (M17.11) Active confirmed Problem 666937479 Spinal cord stimulator status (Z96.89) Active confirmed Problem Osteoarthritis of knee (850299352) Primary osteoarthritis of left knee (M17.12) Active confirmed Problem 64871014 Lumbar stenosis (M48.06) Active confirmed Problem Osteoarthritis of knee (735626047) Osteoarthritis of knee, unspecified (M17.9) Active confirmed Problem Arthropathy of both sacroiliac joints (28087217669062027 ) 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) Active confirmed Problem 56329526 Lumbar stenosis with neurogenic claudication (M48.062) Active confirmed Plan Of Treatment Pending Test Test Name Order Date DEXA Scan 03/08/2021 MRI : Lumbar spine without contrast 02/17 Physical Therapy 05/18/2021 CT Lumbosacral spine without contrast Lumbar spine X-ray Flexion/Extension Ultrasound Right Knee 01/24/2021 X-ray Thoracic and Lumbar AP/LAT 022 Next Appt Details Provider Name:MELITON SCHWABBRENDA , 03/11/2025 12:40:00 PM, [address] [place] [address], [address], Insurance Providers Payer Name Payer Address Payer Phone Subscriber Number Group Number Insured Name Patient Relationship to Insured Coverage Start Date Coverage End Date [facility] [address] [place] [address] [id number] Fariha Manzano Self - patient is the insured MEDICARE PART B [address] [place], [place] [id number] Fariha Manzano Self - patient is the insured [employer] [address] [facility] [place] [id number] Fariha Manzano Self - patient is the insured Medical (General) History Medical History History ICD Code Osteoarthritis Gout HTN Surgical History Surgery Date(Month/Year) LESI x3 2017 appendectomy right ovary removed colonscopy Hospitalization History Reason Date(Month/Year) Patient has had COVID vaccine Fall at home 11/21/2018
--- OUTSIDE RECORDS SUMMARY | 2025-02-28 20:03 | XMS_ITS | Clinical Summary ---
Author Organization [facility] Address [address] [place] [address] Care Team Providers Care Herd Tester Name Role Phone Dom Garrett MD Unavailable Jermaine Steele MD Unavailable Jarrett Damon MD Unavailable [phone] Jillian Jarquin MD Unavailable Unavailab Zoltan Guo MD Primary Care Provider [phone] Allergies Active Allergy Reactions Criticality Noted Date [...] mouth daily PLEASE CALL THE PATIENT AT [phone] 90 tablet 3 11/13/20 24 Active furosemide [...] 01/31/20 25 025 guaiFENesin 1,200 mg PO [id number] :cold symptoms Take 1,200 mg by mouth [...] 01/06/2019 06/03/2020 Otorrhea of left ear 11/04/2018 Shortness of breath 04/23/2018 01/13/20 25 Morbid obesity 10/18/2016 01/28/2024 Encounters Date Type Department Care Team Description 02/10/2025 10:40 AM CDT Office Visit [facility] [address] [place] [address] Zoltan Mckeon MD Hospital discharge follow-up (Primary Dx); Stage 3b chronic kidney disease ([facility]); Secondary hyperparathyroidism of renal origin; Pulmonary hypertension (CMS-HCC); NSTEMI (non-ST elevated myocardial infarction) (CMS-HCC); Encephalocele (CMS-HCC); Diastolic dysfunction with chronic heart failure ([facility]); Restrictive lung disease; Obesity (BMI 30-39.9); Essential hypertension 02/03/2025 Travel 02/02/2025 2:20 PM CDT Office Visit [facility] [address] [place] [address] Mireya Locke MD Pulmonary hypertension ([facility]) (Primary Dx); 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); NSTEMI (non-ST elevated myocardial infarction) ([facility]); Essential hypertension; Obesity (BMI 30-39.9) 02/01/2025 Travel 02/01/2025 Telephone [facility] [address] [place] [address] Cecilia Ravi RN TCM (Discharged 01/29/25) 01/29/2025 Telephone [facility] [address] [place], [place] [id number] Leanna Quinones MD Appointment (Received a message regarding scheduling a follow-up with Dr. Quinones.) 01/27/2025 2:04 PM CDT - 01/29/2025 2:07 PM CDT Hospital Encounter [facility] O5T - TELEMETRY/IMC [address] [place], [place] [id number] Oscar Shaikh MD Carizey, Rene P, DO Karimi, Koohzad, DO Bunyan, Ann S, MD Chest pain, unspecified type (Primary Dx); Elevated troponin; NSTEMI (non-ST elevated myocardial infarction) ([facility]); Essential hypertension Discharge Disposition: Needs Coding by [facility] 01/26/2025 7:47 PM CDT - 01/27/2025 3:16 AM CDT Emergency [facility] EMERGENCY DEPARTMENT [address] 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 Office Visit [facility] [address] [place] [address] Zoltan Mckeon MD Swelling of lower extremity (Primary Dx); Chronic right-sided low back pain with right-sided sciatica; Stage 3b chronic kidney disease (CMS-HCC); 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); Secondary hyperparathyroidism of renal origin; Pulmonary hypertension (CMS-HCC); Encephalocele (CMS-HCC); Restrictive lung disease; Essential hypertension 01/06/2025 Refill [facility] [address] [place] [address] Zoltan Mckeon MD Med Change Request 12/31/2024 Refill [place] [address] [place] [address] Zoltan Mckeon MD Med Change Request 12/23/2024 10:40 AM 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 FIRER HELPER Office Visit [facility] [address] [phone] Debbi [place] MD Shortness of breath (Primary Dx) from Last 3 Months Immunizations Immunization Administration Dates Next Due AREXVY [...] Influenza (Live) Virus (H 1n1) Vaccine Nasal [place] 09/03/2018 Influenza 07/31/2022 Influenza Virus Vaccine (Hig [...] VACCINE 01/28/2024 SHINGRIX - ZOSTER VACCINE 11/30/2021,08/18/2021 Weexyby-Xelrfzfcjq-Airspgytj Pertussis (Tdap) Injection 04/15/2013 YF-VAX - YELLOW FEVER VACCINE 02/13/2008, 993 ZOSTAVAX - ZOSTER VACCINE LI VE 19,400 UNIT 06/18/2009 hepatitis A vaccine injection, Adult 10/23/2007 inactivated poliovirus vacci ne injection/oral 11/18/1992 influenza virus vaccine 09/03/2011,09/13/2010 Family History Medical History Relation Comments Colon Cancer Father Diabetes Father Hypertension Father Hypertension Mother Relation Status Comments Father Mother Social History Tobacco Use Types Packs/Day Years [...] Description 03/10/2025 1:40 PM CDT Office Visit [facility] [address] [place] [address] Zoltan Mckeon MD [address] [place] [address] 03/25/2025 2:45 PM CDT Office Visit [facility] [address] [place] [address] Luis Eduardo Walker MD [address] [address] [place] [address] 08/10/2025 2:00 PM CDT Office Visit [facility] [address] [place] [address] Mireya Locke MD [address] [place] [address] Health Maintenance Due Date Last Done Comments Hepatitis C Screening 1945 Medicare Initial AWV [id number] 1946 DEXA Scan 03/17/2023 03/17/2021 Screening Mammogram 03/29/2024 03/29/2023, 01/05/2022, 02/01/2020 COVID-19 Vaccine ( season) 2025 07/22/2024, 01/28/2024, 09/03/2023, Additional history exists DTaP,Tdap and Td Vaccines (3 - Td or Tdap) 09/21/2034 09/21/2024, 04/15/2013 Colonoscopy Discontinued 03/29/2021 Colorectal Cancer Screening Discontinued Zoster Vaccine Series Completed 11/30/2021 , 08/18/2021, 06/18/2009 Pneumococcal 65+ Completed 01/28/2024, 07/14/2012 Influenza Vaccine Completed 07/22/2024, , 08/03/2022, Additional history exists CT Colonography Discontinued FIT-DNA Test Discontinued Fecal Occult Blood Test Screening Discontinued Meningococcal B Aged Out No longer el igible based on patient's age to complete this topic RSV Vaccine (Pediatric) Aged Out No l onger eligible based on patient's age to complete this topic Sigmoidoscopy Discontinued Medical Devices Implanted Type Area Academic Dean Device Identifier Shelf Expiration Date Model / Serial / Lot Special Implant - Anesthesia - [id number] Implanted:Qty: 2 on 01/19/2020 by Jarrett Damon MD [facility] N/A: Sacrum 11/17/2024 S99-02 / [id number] / NA Description:[facility] DBM Sp onge 2 pack Special Implant - Anesthesia - [id number] Implanted:Qty: 1 on 01/19/2020 by Jarrett Damon MD at [facility] [place] N/A: Sacrum 11/17/2021 S88-20 / [id number] / [id number] 4A Description:[email or web address] [facility] SI Cortical Graft 8 X 8 X 20.6mm Special Implant - Anesthesia - [id number] Implanted:Qty: 1 on 01/19/2020 by Jarrett Damon MD at [facility] N/A: Sacrum 11/17/2021 S88-20 / [id number] / [id number] 4A Description:[employer] - CORNER[employer] SI Cortical Graft 8 X 8 X 20.6mm Special Implant - Anesthesia - [id number] Implanted:Qty: 1 on 07/28/2020 by Jarrett Damon MD at [facility] Right: Back 06/07/2025 S99-02 / [id number]-19-10 [id number] / NA Description:[employer]NER[employer] DBM SP ONGEM 9 X 9 X 9MM Special Implant - Anesthesia - [id number] Implanted:Qty: 1 on 07/28/2020 by Jarrett Damon MD at [facility] Right: Back 06/17/2024 S99-20 / [id number] / [id number] 9A Description:si cortical shira t [employer] solutions Special Implant - Anesthesia - [id number] Implanted:Qty: 1 on 07/28/2020 by Jarrett Damon MD at [facility] Right: Back 06/17/2024 S88-20 / [id number] / [id number] 9A Description:si cortical shira t [employer] Device Spinal Lumbar 12mm Indirect Decompression Superion [id number] - [id number] Implanted:Qty: 1 on 08/29/2021 by Jarrett Damon MD at [facility] N/A: Spine Lumbar [employer] 06/21/2026 [id number] / NA / [id number] Device Spinal Lumbar 12mm Indirect Decompression Superion [id number] - [id number] Implanted:Qty: 1 on 08/29/2021 by Jarrett Damon MD at [facility] [place] N/A: Spine Lumbar [employer] 05/15/2026 [id number] / NA / [id number] Procedures Procedure Name Priority Date/Time Associated Diagnosis [...] FINDINGS: CT scan was performed with a Symbia Intevo 16 operating at 130.00 kv. The exposure [...] study interpretation occurred on 01/28/2025 15:56:43. -- Barb Quinones MD? Leanna was physically present n the hospital complex during the test and provided supervision of the stress test portion. Reporting EKG/ Imaging Physician: Mireya Locke MD I, Mireya Locke MD, have personally reviewed and interpreted the EKG and images of this study. In addition, I have personally reviewed this report and concur with its findings and conclusions, as affirmed by my electronic signature. Edel You MD [facility] NUCLEAR MEDICINE Final Result * CT Nuclear [...] rest and stress Myocardial Perfusion images. ??This dredge mate CT is not designed to produce, and cannot replace, pefaj-zg-tzy-art diagnostic CT scans with specific imaging protocols [...] both rest and stressMyocardial Perfusion images. This dredge mate CT is not designed toproduce, and cannot replace, vaupx-gi-mut-art diagnostic CT scans withspecific imaging protocols for [...] Attending: Renetta Hawthorne on 01/28/2025 4:19 PM us Kim Mike You MD RAD CT Final Resu lt [...] spectral analysis. ??Images are permanently stored on [employer] PACS archive. FINDINGS: Both the right and [...] Dopplerspectral analysis. Images are permanently stored on [employer] PACS archive. FINDINGS: Both the right and [...] Carrillo on 01/28/2025 4:05 PM us Vidya Brewer DO RAD VASCULAR US Final Result * ECHO TRANSTHORACIC COMPLETE WITH DOPPLER, WITHOUT CONTRAST, WITHOUT STRAIN (01/28/2025 9:42 AM CDT) Anatomical Region Laterality Modality Ultrasound 01/28/2025 8:57 AM CDT Narrative 01/28/2025 10:14 AM CDT ? *[facility]* ? Cardiology Department ?[address] ?[place] [address] ? ECHO TRANSTHORACIC COMPLETE WITHOUT CONTRAST, WITHOUT STRAIN PATIENT: ?Fariha Manzano ? : ?1945 HT/WT: ?? 157.5 cm 83 kg ?Abarca ?AGE: ?79 ? BSA/BMI: 1.84 m^2 33.5 ? kg/m^2 STUDY DATE: 01/28/2025 ? GENDER: F ?BP: ?124 / 47 mmHg ORDERING PHYSICIAN: ??Vidya Brewer REFERRING PHYSICIAN: Vidya Brewer READING PHYSICIAN: ?? Alejandro Holcomb QUALITY ASSURANCE COORDINATOR: ? Tonya Gustafson RD INDICATIONS: ?? NSTEMI. HISTORY: ?? Primary pulmonary [...] for diagnosis. Images were obtained using a GiveForwardq 7 cardiac ultrasound machine. Image quality was [...] Vol, ES, 1-p A4C ?(H) ?56 ?ml ? Vol, ES, 1-p A2C ?(H) ?73 ?ml ? - Vol, ES, 2-p ? 65 ?ml ?-------- [...] Procedure Note Alejandro Holcomb MD - 01/28/2025 *[facility]* Cardiology Department [address] [place] [address] ECHO TRANSTHORACIC COMPLETE WITHOUT CONTRAST, WITHOUT STRAIN PATIENT: Fariha Manzano : 1945 HT/WT: 157.5 cm 83 kg Abarca AGE: 79 BSA/BMI: 1.84 m^2 33.5 kg/m^2 STUDY DATE: 01/28/2025 GENDER: F BP: 124 / 47 mmHg ORDERING PHYSICIAN: Vidya Brewer REFERRING PHYSICIAN: Vidya Brewer READING PHYSICIAN: Alejandro Holcomb QUALITY ASSURANCE COORDINATOR: Tonya Gustafson [facility] INDICATIONS: NSTEMI. HISTORY: Primary pulmonary hypertension. HFpEF. [...] by Alejandro Holcomb 01/28/2025 10 :13 AM Vidya Brewer DO CAR ECHO Final Result * (ABNORMAL) aPTT on Heparin (01/28/2025 8:23 AM CDT) Pathologist [facility] APTT Heparin 40.7(H) 24.0 - 35.0 secs 01/28/2025 8:43 AM CDT [facility] Comment:Final Information (A uto Output) Blood VENOUS BLOOD / Unknown Venipuncture / Unknown 01/28/2025 8:23 AM CDT 01/28/2025 8:23 AM CDT Narrative [facility] - 01/28/2025 8:43 AM CDT The APTT Heparin Therapeutic Range is approximately 48-67 seconds and has been validated against 0.3-0.7 heparin anti-Xa units/mL. Abelardo Gu MD LAB BLOOD ORDERABLES Final R esult [facility] [address] [place], [place] [address] [phone] * (ABNORMAL) Complete Blood Count - Daily - per [facility] Heparin Guidelines (01/28/2025 7:06 AM CDT) Only the most recent of2 resultswithin the time period is included. White Blood Count 13.13(H) 4.00 - 10.00 K/uL 01/28/2025 8:28 AM CDT [facility] Red Blood Cell Count 3.44(L) 4.00 - 5.20 M/uL 01/28/2025 8:28 AM CDT [facility] Hematocrit 31.1(L) 37.0 - 47.0 % 01/28/2025 8:28 AM CDT [facility] Hemoglobin 9.9(L) 12.0 - 16.0 g/dL 01/28/2025 8:28 AM CDT [facility] MCV 90.4 82.0 - 103.0 fL 01/28/2025 8:28 AM CDT [facility] MCH 28.8 26.0 - 34.0 pg 01/28/2025 8:28 AM CDT [facility] MCHC 31.8 30.0 - 37.0 g/dL 01/28/2025 8:28 AM [facility] Red Cell Distribution Width 14.9(H) 11.5 - 14.5 % 01/28/2025 8:28 AM T [facility] Platelet Count 233 150 - 399 K/uL 01/28/2025 8:28 AM T [facility] Mean Platelet Volume 10.2 8.3 - 12.3 fL 01/28/2025 8:28 AM [facility] Nucleated Red Blood Cells 0 <=0 /100 WBC 01/28/2025 8:28 AM [facility] Blood VENOUS BLOOD / Unknown Venipuncture / Unknown 01/28/2025 7:06 AM CDT 01/28/2025 8:23 AM CDT us Vidya Brewer DO LAB BLOOD ORDERABLES Final Res ult Performing Organization Address City/State/[facility] Co de Phone Number [facility] [address] [phone] * aPTT - Baseline - STAT (01/27/2025 9:20 PM CDT) Activated PTT 25.1 24.0 - 35.0 secs 01/27/2025 9:54 PM T [facility] Comment:Final Information (A uto Output) Blood VENOUS BLOOD / Unknown Venipuncture / Unknown 01/27/2025 9:20 PM CDT 01/27/2025 9:38 PM CDT Narrative [facility] - 01/27/2025 9:54 PM CDT The APTT Heparin Therapeutic Range is approximately 48-67 seconds and has been validated against 0.3-0.7 heparin anti-Xa units/mL. Abelardo Gu MD LAB BLOOD ORDERABLES Final R esult Performing Organization Address [facility] de Phone Number [facility] [address] [phone] * TYPE AND SCREEN (01/27/2025 6:18 PM CDT) Pathologist [facility] ABO/Rh B Positive 01/27/2025 7:44 PM CDT [facility] BLOOD [facility] Antibody Screen Negative 01/27/2025 7:44 PM CDT [facility] Type and Screen Expires on: 01/30/2025 23:59 01/27/2025 7:44 PM CDT [facility] Blood VENOUS BLOOD / Unknown Venipuncture / Unknown 01/27/2025 6:18 PM CDT 01/27/2025 7:01 PM CDT Vidya Brewer DO LAB BLOOD BANK TEST ORDERABLES Final Result Performing Organization Address [facility] de Phone Number [facility] [address] [phone] * Point Of Care Glucose(Meter) (01/27/2025 5:33 PM CDT) Pathologist [facility] POC Glucose 83 82 - 115 mg/dL 01/27/2025 5:39 PM CDT [facility] POC Landscaping Crew Leader ID [id number] 01/27/2025 5:39 PM CDT [facility] POC Meter ID [id number] 01/27/2025 5:39 PM CDT [facility] POC Temp 25.2 C 01/27/2025 5:39 PM CDT [facility] Blood (Blood, Capillary) 01/27/2025 5:33 PM CDT 01/27/2025 5:39 PM CDT us Vidya Brewer DO LAB POC UNSOLICT RESULTS Final Result Performing Organization Address [facility] de Phone Number [facility] [address] [place] [address], [facility] [phone] * (ABNORMAL) High Sensitivity Troponin I (01/27/2025 3:51 PM CDT) Only the most recent of5 resultswithin the time period is included. [facility] High Sensitivity Troponin I 229.3(HH) 0.0-17.0 ng/L ng/L 01/27/2025 4:33 PM CDT [facility] Blood VENOUS BLOOD / Unknown Venipuncture / Unknown 01/27/2025 3:51 PM CDT 01/27/2025 3:58 PM CDT Oscar Shaikh MD LAB BLOOD ORDERABLES Final Res ult Performing Organization Address [facility] Phone Number [facility] [address] [place] [address], [facility] [phone] * BLUE EXTRA TUBE (01/27/2025 1:57 PM CDT) Only the most recent of2 resultswithin the time period is included. Blood VENOUS BLOOD / Unknown Venipuncture / Unknown 01/27/2025 1:57 PM CDT 01/27/2025 2:26 PM CDT us Oscar Shaikh MD LAB BLOOD ORDERABLES Final Res ult Performing Organization Address [facility] de Phone Number [facility] [address] [place] [address], [facility] [phone] * SST EXTRA TUBE (01/27/2025 1:57 PM CDT) Only the most recent of2 resultswithin the time period is included. Blood VENOUS BLOOD / Unknown Venipuncture / Unknown 01/27/2025 1:57 PM CDT 01/27/2025 2:26 PM CDT us Oscar Shaikh MD LAB BLOOD ORDERABLES Final Res ult Performing Organization Address [facility] Co de Phone Number [facility] [address] [place] [address], [facility] [phone] * TSH with Reflex Free T4 (01/27/2025 1:57 PM CDT) Thyroid Stimulating Hormone 2.134 0.350 - 4.940 uIU/mL 01/27/2025 6:24 PM CDT [facility] Blood VENOUS BLOOD / Unknown Venipuncture / Unknown 01/27/2025 1:57 PM CDT 01/27/2025 2:26 PM CDT Vidya Brewer DO LAB BLOOD ORDERABLES Final Res ult Performing Organization Address [facility] de Phone Number [facility] [address] [phone] * Hepatic Function Panel (01/27/2025 1:57 PM CDT) Albumin 3.6 3.5 - 5.0 g/dL 01/27/2025 6:03 PM CDT [facility] Bilirubin, Total 0.4 0.2 - 1.3 mg/dL 01/27/2025 6:03 PM CDT [facility] Bilirubin, Direct 0.17 <=0.35 mg/dL 01/27/2025 6:03 PM CDT [facility] Alkaline Phosphatase 63 30 - 125 U/L 01/27/2025 6:03 PM CDT [facility] Total Protein 6.6 6.0 - 8.2 g/dL 01/27/2025 6:03 PM CDT [facility] ALT 14 0 - 40 U/L 01/27/2025 6:03 PM CDT [facility] AST 21 3 - 44 U/L 01/27/2025 6:03 PM CDT [facility] Blood VENOUS BLOOD / Unknown Venipuncture / Unknown 01/27/2025 1:57 PM CDT 01/27/2025 2:26 PM CDT us Vidya Brewer DO LAB BLOOD ORDERABLES Final Res ult [facility]vo Kim [facility] [place] [address], [facility] [phone] * (ABNORMAL) Comprehensive Metabolic Panel (01/27/2025 1:57 PM CDT) Only the most recent of2 resultswithin the time period is included. Sodium 142 137 - 147 mmol/L 01/27/2025 2:53 PM CDT [facility] Potassium 3.4 3.4 - 5.3 mmol/L 01/27/2025 2:53 PM CDT [facility] Chloride 104 99 - 108 mmol/L 01/27/2025 2:53 PM CDT [facility] CO2 Total 25 22 - 29 mmol/L 01/27/2025 2:53 PM CDT [facility] Anion Gap 13 8 - 16 01/27/2025 2:53 PM CDT [facility] BUN 44(H) 8 - 21 mg/dL 01/27/2025 2:53 PM CDT [facility] Creatinine 1.82(H) 0.65 - 1.00 mg/dL 01/27/2025 2:53 PM CDT [facility] BUN/Creat Ratio 24.2 8.0 - 25.0 2:53 PM CDT [facility] EGFR 28 01/27/2025 2:53 PM CDT [facility] Glucose 86 82 - 115 mg/dL 01/27/2025 2:53 PM CDT [facility] Total Protein 6.4 6.0 - 8.2 g/dL 01/27/2025 2:53 PM CDT [facility] Albumin 3.5 3.5 - 5.0 g/dL 01/27/2025 2:53 PM CDT [facility] Calcium 10.1 9.1 - 11.2 mg/dL 01/27/2025 2:53 PM CDT [facility] Calcium (Adjusted) 10.5 9.1 - 11.2 mg/dL 01/27/2025 2:53 PM CDT [facility] Comment:Calcium result adjus flex for serum albumin concentration. Suggest confirmation of calcium status with an ionized calcium, if clinically indicated. Bilirubin, Total 0.4 0.2 - 1.3 mg/dL 01/27/2025 2:53 PM CDT [facility] Alkaline Phosphatase 61 30 - 125 U/L 01/27/2025 2:53 PM CDT [facility] AST 19 3 - 44 U/L 01/27/2025 2:53 PM CDT [facility] ALT 14 0 - 40 U/L 01/27/2025 2:53 PM CDT [facility] Blood VENOUS BLOOD / Unknown Venipuncture / Unknown 01/27/2025 1:57 PM CDT 01/27/2025 2:26 PM CDT Narrative [facility] - 01/27/2025 2:53 PM CDT ESTIMATED [...] the 2020 CKD-EPI creatinine formula. (Please visit [email or web address] for more information.) The equation has not been validated for use in women, patients with serious comorbid conditions, or persons with extremes of body size, muscle mass or nutritional status. Lb Herr MD LAB BLOOD ORDERABLES nal Result [facility] [address] [place], [place] [address] [phone] * (ABNORMAL) Complete Blood Count with Differential (01/27/2025 1:57 PM CDT) Only the most recent of2 resultswithin the time period is included. White Blood Count 13.36(H) 4.00 - 10.00 K/uL 01/27/2025 2:32 PM CDT [facility] Red Blood Cell Count 3.72(L) 4.00 - 5.20 M/uL 01/27/2025 2:32 PM [facility] Hemoglobin 10.9(L) 12.0 - 16.0 g/dL 01/27/2025 2:32 PM [facility] Hematocrit 33.1(L) 37.0 - 47.0 % 01/27/2025 2:32 PM [facility] MCV 89.0 82.0 - 103.0 fL 01/27/2025 2:32 PM [facility] MCH 29.3 26.0 - 34.0 pg 01/27/2025 2:32 PM [facility] MCHC 32.9 30.0 - 37.0 g/dL 01/27/2025 2:32 PM [facility] Red Cell Distribution Width 14.9(H) 11.5 - 14.5 % 01/27/2025 2:32 PM [facility] Platelet Count 244 150 - 399 K/uL 01/27/2025 2:32 PM [facility] Mean Platelet Volume 9.7 8.3 - 12.3 fL 01/27/2025 2:32 PM [facility] Preliminary Absolute Neutrophil Count 6.27 1.84 - 7.80 K/uL 01/27/2025 2:32 PM [facility] Nucleated Red Blood Cells 0 <=0 /100 WBC 01/27/2025 2:32 PM [facility] Segmented Neutrophils 46.9 36.0 - 72.0 % 01/27/2025 2:32 PM [facility] Lymphocytes 7.7(L) 18.0 - 52.0 % 01/27/2025 2:32 PM [facility] Monocytes 6.8 3.0 - 10.0 % 01/27/2025 2:32 PM [facility] Eosinophils 37.9(H) 0.0 - 6.0 % 01/27/2025 2:32 PM [facility] Basophils 0.3 <=3.0 % 01/27/2025 2:32 PM [facility] Immature Gran Percent 0.4 <=1.5 % 01/27/2025 2:32 PM [facility] Neutrophil Auto # 6.27 1.84 - 7.80 K/uL 01/27/2025 2:32 PM CDT [facility] Lymphocyte Number 1.03 0.72 - 5.20 K/uL 01/27/2025 2:32 PM CDT [facility] Monocyte # 0.91 0.12 - 1.00 K/uL 01/27/2025 2:32 PM CDT [facility] Eosinophil Absolute Auto 5.06(H) <=0.60 K/uL 01/27/2025 2:32 PM CDT [facility] Basophil Absolute Auto 0.04 <=0.30 K/uL 01/27/2025 2:32 PM CDT [facility] Immature Gran Absolute Cnt 0.05 <=0.15 K/uL 01/27/2025 2:32 PM CDT [facility] Blood VENOUS BLOOD / Unknown Venipuncture / Unknown 01/27/2025 1:57 PM CDT 01/27/2025 2:26 PM CDT Lb Herr MD LAB BLOOD ORDERABLES Fi nal Result Performing Organization Address [facility] Co de Phone Number [facility] [address] [place] [address], [facility] [phone] * B-Type Natriuretic Peptide (01/27/2025 1:57 PM CDT) Only the most recent of2 resultswithin the time period is included. Pathologist [facility] B-Type Natriuretic Peptide 71 <=100 pg/mL 01/27/2025 3:13 PM CDT [facility] Blood VENOUS BLOOD / Unknown Venipuncture / Unknown 01/27/2025 1:57 PM CDT 01/27/2025 2:26 PM CDT Oscar Shaikh MD LAB BLOOD ORDERABLES Final Res ult Performing Organization Address [facility]/ZIP Co de Phone Number [facility] [address] [place] [address], [facility] [phone] * ECG Electrocardiogram (01/27/2025 1:48 PM CDT) ELECTROCARDIOGRAM REPORT Test Reason : CP Blood [...] infarct are no longer present Confirmed by Tryee Walsh ([id number]) on 01/28/2025 11:45:45 AM Referred By: ??ED ? Confirmed By:Tyree Walsh SAENZ DIEUDONNE 01/27/2025 1:48 PM CDT us Unknown Provider CAR ECG Final Result [facility] * CT Angiogram Chest for [...] Dimer Fibrin Derivatives (01/26/2025 10:34 PM CDT) Pathologist [facility] D-Dimer 4.09(H) <=0.60 mg/L FEU 01/26/2025 11:08 PM CDT [facility] Comment:Final Information (A uto Output) Blood VENOUS BLOOD / Unknown Venipuncture / Unknown 01/26/2025 10:34 PM CDT 01/26/2025 10:44 PM CDT Narrative [facility] - 01/26/2025 11:08 PM CDT D-Dimer results of less than 0.5 mg/L FEU have been shown to contribute to the exclusion of venous thromboembolism with a negative predictive value of approximately 99% when results are used as part of the total clinical evaluation of the patient. us Carson Hunt DO LAB BLOOD ORDERABLES Final Result [facility] [address] [place] [address], [facility] [phone] * ECG performed by Emergency Dept. (01/26/2025 10:23 PM CDT) Only the most recent of2 resultswithin the time period is included. Pathologist [facility] ELECTROCARDIOGRAM REPORT Test Reason : Blood Pressure [...] AM Referred By: ? Confirmed By:Nydia Brambila SAENZ MUSE 01/26/2025 10:2 3 PM CDT Narrative [facility] - 01/27/2025 11:56 AM CDT Carson Hunt, DO ? 01/27/2025 ??2:41 AM ECG performed by Emergency Dept. Date/Time: 01/26/2025 10:29 PM Performed by: Carson Hunt, Authorized by: Sagar Mays MD ?? Comments: [...] pneumonia, pneumothorax. Some signsof pulmonary congestion [DB] 2145 Complete Blood Count with Differential(!) CBC overall reassuring. Minimal leukocytosis present. Patient has ahemoglobin of 11.4 [DB] 2145 Comprehensive Metabolic Panel(!) CMP overall reassuring. Patient's potassium is 3.1 repleted withpotassium chloride. Patient's creatinine 1.91 which appears to be atclose to baseline [DB] 214 Flu/RSV/SARS-CoV-2 Panel Viral panel negative [DB] 214 B-Type Natriuretic Peptide BNP within normal limits [DB] 214 Patient given a dose of IV Lasix [DB] 214 HIGH SENSITIVITY TROPONIN I(!!): 241.1 Troponin obtained and patient inadvertently discharged prior to results.Resulted at 241. Called patient and expressed concern for elevatedtroponin and she is returning to the emergency department. [DB] 2216 [place] scientific spine stimulator, CKD, pulm HTN. Intermediate riskper revised [place], add on d-dimer. No chest pain, only sob. Urine [id number] lasix. [JL] 2221 Lung sounds are clear. [...] troponin R79.89 790.6 Request for Cardiology Discharged AMA Carson Hunt DO [facility] EMERGENCY DEPARTMENT Sagar Mays MD CAR ECG - EMERGENCY DEPT Edite d Result - Final [facility] * EXTRA GREEN LI HEP (01/26/2025 8:20 PM CDT) Blood VENOUS BLOOD / Unknown Venipuncture / Unknown 01/26/2025 8:20 PM CDT 01/26/2025 9:51 PM CDT us Sagar Mays MD LAB BLOOD ORDERABLES Final Res ult Performing Organization Address [facility] Co de Phone Number [facility] [address] [place] [address], [facility] [phone] * RED EXTRA TUBE (01/26/2025 8:20 PM CDT) Blood VENOUS BLOOD / Unknown Venipuncture / Unknown 01/26/2025 8:20 PM CDT 01/26/2025 9:51 PM CDT Sagar Mays MD LAB BLOOD ORDERABLES Final Res ult Performing Organization Address [facility] Co de Phone Number [facility] [address] [place] [address], [facility] [phone] * LAVENDER EXTRA TUBE (01/26/2025 8:20 PM CDT) Blood VENOUS BLOOD / Unknown Venipuncture / Unknown 01/26/2025 8:20 PM CDT 01/26/2025 8:55 PM CDT Sagar Mays MD LAB BLOOD ORDERABLES Final Res ult Performing Organization Address [facility] de Phone Number [facility] [address] [place] [address], [facility] [phone] * X-Ray Chest 2 Views PA/Lat (01/26/2025 [...] CDT) Influenza A Not Detected Not Detected 5 5:00 PM CDT [facility] Influenza B Not Detected Not Detected 5:00 PM CDT [facility] Respiratory Syncytial Virus Not Detected Not detected 01/26/2025 5:00 PM CDT [facility] SARS-CoV-2 Not Detected Not Detected 01/26/2025 5:00 PM CDT [facility] Respiratory NASOPHARYNGEAL STRUCTURE / Unknown Non-blood Collection / Unknown 01/26/2025 4:14 PM CDT 01/26/2025 4:18 PM CDT Narrative [facility] - 01/26/2025 5:00 PM CDT Methodology: Detection and differentiation of influenza A, influenza B, RSV and SARS-CoV-2 RNA is based upon reverse footwear production machine operator real-time PCR amplification and detection of genomic RNA on the [employer] GeneXpert platform. Performance characteristics have been determined as part of the Emergency Use Authorization. ?? [email or web address] Yisel Rider PA-C LAB MICRO GENERAL ORDERABLE Final Result [facility] [address] [place], [place] [address] [phone] * X-Ray DXA Bone Density 1+ Sites [...] Attending: Aram Graff on 03/17/2021 1:58 PM Jarrett Damon MD RAD GEN IMAGING Final Result from Last 3 Months or Most Recently Relevant to Health Maintenance [place] [address] [facility] Advance Directives * Full Code (Latest Code [...] 7:09 AM 07/28/2020 8:19 AM Care Teams Herd Tester Relationship Specialty Start Date End Date Zoltan Mckeon MD [address] [place] [address] PCP - General Internal Medicine 01/28/24 Dom Garrett MD Consulting Provider Cardiovascular Disease 06/09/18 Jermaine Steele MD [address] [facility] [address] [place] [address] Specialist Otolaryngology 11/04/18 Jarrett Damon MD [address] [place] [address] Anesthesiologist Anesthesiology 11/04/18 Jillian Jarquin MD [address] [facility] [address] [place] [address] Specialist Critical Care Medicine 11/04/18
--- OUTSIDE RECORDS SUMMARY | 2025-02-28 20:03 | XMS_ITS | Encounter Summary ---
Author Organization [facility] Address [address] [place] [address] Care Team Providers Care Stone Sandblaster Name Role Phone Jimbo Mckeon MD Primary Care Provider [phone] Dom Garrett MD Unavailable Jermaine Steele MD Unavailable [phone] Jarrett Damon MD Unavailable [phone] Jillian Jarquin MD Unavailable Unavailab Zoltan Guo MD Primary Care Provider [phone] Reason for Referral * Transition of Care (Routine) - Closed Specialty Diagnoses / Procedures Referred By Evelia t Referred To Contact Diagnoses Surgery, elective Jarrett Damon MD [address] [facility] [address], [facility] [place] [address] Phone: tel: fax: Referral ID Status Reason Start Date Expiration Date Visits Re quested Visits Authorized [id number] Closed 04/26/2021 05/26/2022 10 10 Question Answer Referral is for: Pre-procedure Testing (Drive Thru) Expected Procedure/Surgery Date?: 05/09/2021 Encounter Details Date Type Department Care Team ([facility] st Contact Info) Description 04/26/2021 Community Orders [facility] Anesthesia [address] [place] [address] Jarrett Damon MD [address] [facility] [address], [place] [address] Surgery, elective (Primary Dx) Social History Tobacco [...] Description 03/10/2025 1:40 PM CDT Office Visit [facility] Adult Medicine [address] [place] [address] Zoltan Mckeon MD [address] [place] [address] 03/25/2025 2:45 PM CDT Office Visit [facility] Vascular Surgery [address] [place] [address] Luis Eduardo Walker MD [address] [place] [address] 08/10/2025 2:00 PM CDT Office Visit [facility] Cardiology [address] [place] [address] Mireya Locke MD [address] [place] [address] Scheduled Referrals Name Type Priority Associated Diagnoses Orde r Schedule Request for COVID Clinic (Pre-Procedure Drive-Thru Testing) Referral Routine Surgery, elective Ordered: 04/26/2021 documented as of this encounter Visit Diagnoses Diagnosis Surgery, elective- Primary Unspecified elective surgery for purposes other than remedying health states documented in this encounter Additional Health Concerns Infection Onset Date Last Indicated Resolved Time Confirmed- COVID19 12/11/2021 12/11/2021 2 4:44 AM 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 TECH Assessment Noted Time PHQ-2 Depression Total Score: 0 06/09/20 18 8:03 AM CDT documented as of this encounter Care Teams Stone Sandblaster Relationship Specialty Start Date End Date Jimbo Mckeon MD PCP - General Family Medicine 07/31/16 01/27/24 Zoltan Mckeon MD [address] [place] [address] PCP - General Internal Medicine 01/28/24 Dom Garrett MD Consulting Provider Cardiovascular Disease 06/09/18 Jermaine Steele MD [address] [facility] [address] [place] [address] Specialist Otolaryngology 11/04/18 Jarrett Damon MD [address] [place] [address] Anesthesiologist Anesthesiology 11/04/18 Jillian Jarquin MD [address] [place] [address] Specialist Critical Care Medicine 11/04/18 documented as of this encounter
[2025-02-28 21:56] LABS: Troponin-I High Sensitivity 295.6 ng/L (<3.5-17.0)
[2025-03-01] VITALS (9 sets, daily range): BP systolic 119–145; BP diastolic 39–64; PULSE 57–74; RESP 15–24; TEMP 36.5–37.2; O2SAT 70–100
--- NOTE | 2025-03-01 00:09 | PC.NURSE ---
pt states she felt no different walking and feels like this is her baseline./ pt sat dropped in the 70's at rest 94% on room air.
--- NOTE | 2025-03-01 02:16 | PM.IMHP ---
History of Present Illness Date of Service: 03/01/25 Chief Complaint: sob 79-year-old female with a past medical history of HTN, HLD, CKD, CHF, COPD presented to the hospital today with a chief complaint of shortness of breath. Patient reported that she basically lives in [place]. Came to [place] because of work related. Reports that she flew to [facility] from [place] in a flight. She was doing fine until yesterday. For the past 1 and half days she has been having cough with yellow sputum production. Has been having shortness of breath. Denies any chest pain or palpitations. Patient reports that she was recently diagnosed with new onset CHF and is on Lasix and metolazone at home which he has been compliant. Does not recall her echocardiogram shows. Does not recall her creatinine values. Denies any chest pain or palpitations. Denies any GI or symptoms. Review of all other systems is negative except mentioned above ER course: Per ER team, patient on presentation noted to be short of breath, has coarse breath sounds, chest x-ray showed pulmonary congestion concerning for acute CHF. On labs noted elevated creatinine of 1.9. Patient was given a dose of Lasix. D-dimer elevated. EKG nonischemic. Troponins [id number]. [facility] Social History Smoked in Last 30 Days: No Use of substances other than those prescribed or required for medical reasons: No Advance Directives: No Advance Directives Information Provided: Yes Do you have a plan to hurt others: No Plan Meds Allergies Allergy/AdvReac Type Severity Reaction Status Date / Time Sulfa (Sulfonamide Allergy Shortness Verified 02/28/25 17:37 Antibiotics) of Breath Active Medications: Current Medications Acetaminophen (Acetaminophen 325 Mg Tablet) 650 mg PO Q6H PRN PRN Reason: Pain, Mild 1-3,fever,headache Albuterol/Ipratropium (Albuterol/Iprat 2.5/0.5mg 3 Ml Ampul.Neb) 3 ml INHALE RQ4H WHILE AWAKE PRN PRN Reason: Shortness of Breath Calcium Carbonate (Calcium Carbonate 750 Mg Tab.Chew) 750 mg PO Q4H PRN PRN Reason: Heartburn Furosemide (Furosemide 40 Mg/4 Ml Vial) 40 mg IVPUSH DAILY SISI; Protocol Heparin Sodium (Porcine) (Heparin Sodium,Porcine 5,000 Unit/Ml Vial) 5,000 unit SUBCUT Q8H [facility] Magnesium Hydroxide (Milk Of Magnesia 30 Ml Oral.Susp) 30 ml PO DAILY PRN PRN Reason: Constipation Melatonin (Melatonin 3 Mg Tablet) 6 mg PO BEDTIME PRN PRN Reason: Insomnia Sodium Chloride (0.9 % Sodium Chloride Flush 3 Ml Syringe) 3 ml IVFLUSH QSHIFT SISI Physical Exam Vital Signs and Narrative: Vital Signs: Last Vital Signs Temp 97.9 F 03/01/25 00:00 Pulse 68 03/01/25 00:00 Resp 16 03/01/25 00:00 BP 125/44 L 03/01/25 00:00 Pulse Ox 94 03/01/25 00:00 O2 Del Method Room Air 03/01/25 00:00 O2 Flow Rate 3 02/28/25 19:22 BMI result Body Mass Index 30.9 Gen: Appears be in no acute distress HEENT: NCAT, Moist mucosa. Pulmonary: Coarse breath sounds; CVS: Normal S1-S2 Abdomen: BS+, Soft, Nontender Extremities: Warm well perfused; trace pedal edema Neuro: Alert and awake. Results Labs 02/28/25 18:05 02/28/25 18:05 Labs: Laboratory Results - last 24 hr 02/28/25 02/28/25 02/28/25 18:05 18:11 19:46 MCV 91.0 MCH 29.4 MCHC 32.3 RDW 14.1 Plt Count 224 MPV 10.1 Immature Gran % (Auto) 0.3 Neut % (Auto) 59.7 Lymph % (Auto) 9.9 L Isabela % (Auto) 7.0 Eos % (Auto) 22.7 H Baso % (Auto) 0.4 Lymph # (Auto) 1.0 L Isabela # (Auto) 0.7 Eos # (Auto) 2.2 H Baso # (Auto) 0.0 Abs Immat Gran (auto) 0.03 Absolute Neuts (auto) 5.8 Absolute Nucleated RBC 0.000 Nucleated RBC % (auto) 0.0 Smear Tech's Comments VERIFIED D-Dimer High Sensitivty 468 VBG pH 7.35 VBG pCO2 59 VBG pO2 54 VBG HCO3 33 H VBG O2 Saturation 82.0 VBG Base Excess 6.1 Anion Gap 19 Estim Creat Clear Calc 24.1 Estimated GFR 25 Random Glucose 91 Calcium 10.5 H Magnesium 1.7 Total Bilirubin 0.4 AST 34 H ALT 18 Alkaline Phosphatase 86 B-Natriuretic Peptide 83 Total Protein 6.4 L Albumin 3.7 Influenza Type A (PCR) NEGATIVE Influenza Type B (PCR) NEGATIVE RSV RNA Qual (PCR) NEGATIVE SARS-CoV-2 RNA (RT-PCR) NEGATIVE Assessment and Plan (1) Congestive heart failure: Qualifiers: Heart failure type: unspecified Heart failure chronicity: acute on chronic Qualified Code(s): I50.9 - Heart failure, unspecified Status: Acute Plan 79-year-old female with a past medical history of HTN, HLD, CKD, CHF, COPD presented to the hospital today with a chief complaint of shortness of breath. Admitted for following Acute hypoxic respiratory failure: Acute on chronic CHF: Demand ischemia: Patient reports that she was recently diagnosed with CHF in [place] and has been on Lasix and metolazone at home-reports being compliant. Patient was hypoxic to 70s on ambulation. Placed on supplemental oxygen. Goal oxygen saturation 88-93%. Chest x-ray concerning for CHF/bronchitis. Troponins elevated but plateaued. Patient denies any chest pain. EKG nonischemic. Given a dose of IV Lasix. Daily weights and I's and O's Echocardiogram Cardiology consult COPD: Mackenzie p.r.n.. Trending pulse oximetry when ready for discharge. Bronchitis: Continue doxycycline. Cough suppressants: CARMEN on CKD: Patient does not recall her baseline creatinine but reports it is being less than 1.9. Judicious diuresis. Nephrology consult. Hypertension: Blood pressure normal side. Hold home antihypertensives for now in order to provide room for diuresis. Elevated D-dimer: Will obtain V/Q scan in a.m.. DVT prophylaxis: SubQ heparin Code status: Full code Quality Stroke Does the patient have a stroke diagnosis?: No VTE Prior VTE?: No VTE Risk Level:: Medical - moderate - high VTE Device Contraindication: Treatment Not Indicated VTE Drug Contraindication: N/A - Med Ordered
[2025-03-01 02:54] LABS: Troponin-I High Sensitivity 284.4 ng/L (<3.5-17.0)
[2025-03-01] MEDS: Doxycycline Monohydrate 100 MG CAPSULE PO ×3 (03:39→20:53)
[2025-03-01 04:53] LABS: Basophils Percent Auto 0.3 % (0-2); Eosinophils Absolute Auto 2.2 X10*3/uL (0.0-0.4); Eosinophils Percent Auto 22.1 % (0-4); Imm Gran Abs Auto 0.03 X10*3/uL (0.00-0.03); Imm Gran Pct Auto 0.3 % (0.0-0.4); Lymphocytes Absolute Auto 0.9 X10*3/uL (1.2-4.9); Lymphocytes Percent Auto 9.1 % (20-40); MANUAL DIFF FLAG SCAN; Mean Corpuscular HGB Conc 31.3 g/dl (31.0-35.0); Mean Corpuscular Hemoglobin 28.7 pg (27.0-33.0); Mean Corpuscular Volume 91.7 fL (80.0-98.0); Mean Platelet Volume 9.7 fL (9.4-12.3); Monocytes Absolute Auto 0.8 X10*3/uL (0.1-1.2); Monocytes Percent Auto 8.1 % (2-11); Neutrophils Absolute Auto 5.8 x10*3/uL (2.0-8.3); Neutrophils Percent Auto 60.1 % (45-73); Platelet Count 212 X10*3/uL (160-400); Red Blood Count 3.49 X10*6/uL (4.20-5.50); Red Cell Distribution Width 13.9 % (11.0-16.0); SCAN SMEAR FLAG 1; White Blood Count 9.7 X10*3/uL (4.8-10.8)
[2025-03-01 05:06] LABS: Alanine Aminotransferase 14 U/L (0-31); Albumin Level 3.5 g/dL (3.5-5.0); Alkaline Phosphatase 77 U/L (39-117); Anion Gap 14 (12-20); Aspartate Amino Transferase 35 U/L (5-31); Bilirubin Total 0.2 mg/dL (0.0-1.0); Blood Urea Nitrogen 58 mg/dL (9-16); Calcium 10.2 mg/dL (8.4-10.2); Carbon Dioxide 28 mmol/L (22-29); Chloride 106 mmol/L (96-108); Creatinine Clr Calc Pharmacy 23.8; Estimated Glomerular Filt Rate 25; Glucose Random 97 mg/dL (60-115); Potassium 3.3 mmol/L (3.3-5.1); Sodium 145 mmol/L (135-145); Total Protein 5.6 g/dL (6.5-8.0)
[2025-03-01 05:11] LABS: SLIDE REVIEW VERIFIED
--- NOTE | 2025-03-01 07:00 | CA_ITS ---
Transthoracic Echocardiogram Patient (Last, First, Middle): Fariha Manzano P Gender: Female Date of : 1945 Age: 79 Procedure Date: 03/01/2025 Procedure Type: Transthoracic Echocardiogram Location: [facility] Height: 160.02 cm Weight: 78.93 kg BSA: 1.82 m2 Heart Rate: 67 bpm BP: 119 / 48 mmHg Warehouse Distribution Associate: RAQUEL Referring MD: Tim Gordillo MD Symptoms: CHF Study Quality: Fair ECG Rhythm: Sinus Conclusions: - 1. Hyperdynamic LVEF of greater than 70% with impaired relaxation filling pattern 2. Moderately dilated left atrium 3. Possible mild aortic stenosis 4. Normal right atrial pressures Findings Left Ventricle Normal left ventricular cavity size. There is normal left ventricular wall thickness. The left ventricular systolic function is hyperdynamic. The visually estimated ejection fraction is >70%. Spectral Doppler is indicative of an impaired relaxation filling pattern. E/E prime ratio is between 8 and 15 consistent with indeterminate filling pressures. Right Ventricle Normal right ventricular cavity size and systolic function. Atria The left atrium is moderately dilated. There is lipomatous hypertrophy of the interatrial septum. There is no evidence of interatrial shunt. The right atrium is likely dilated. Aortic Valve The aortic valve was not well visualized. The aortic valve structure and function is likely normal. There is mild aortic valve stenosis. The aortic valve area is 1.99 cm2. There is no aortic valve regurgitation. Mitral Valve Likely normal mitral valve structure and function. There is no mitral valve regurgitation. There is no mitral valve stenosis. Pulmonic Valve The pulmonic valve was not well visualized. Tricuspid Valve Likely normal tricuspid valve structure and function. Tricuspid regurgitation envelope is inadequate for calculation of right ventricular systolic pressure. Normal right atrial pressure. Great Vessels The aorta was not well visualized. The pulmonary artery was not well visualized. Venous The inferior vena cava is normal in size and collapses greater than 50% with inspiration. Pericardium/Pleural The pericardium was not well visualized. Prior Study Comparison No prior study available for comparison. Measurements 2D Linear Measurements IVSd: 0.99 0.6-0.9/0.6-1.0 cm LVIDd: 4.93 3.9-5.3/4.2-5.9 cm LVIDd Index: 2.71 2.4-3.2/2.2-3.1 cm/m2 LVIDs: 3.41 2.0-3.6 cm LVPWd: 0.80 0.7-1.1 cm LA Diam: 3.80 2.7-3.8/3.0-4.0 cm LAIDs Index: 2.09 1.5-2.3 cm/m2 LV Mass: 190.42 67-162/88-224 g LV Mass Index: 104.63 43-95/49-115 g/m2 LVOT Diam: 1.90 3.0+(-)1.3 cm 2D Systolic Function EF 4C: 71.50 >55% EF 2C: 70.30 >55% EF BiP: 71.60 >55% Mitral Valve MV Pk E: 1.20 MV PK A: 1.33 MV Decel Time: 303.00 E/A: 0.90 E'Lateral: 11.00 E'Medial: 7.40 E/E' Med: 16.20 E/E' Lat: 10.90 PHT: 89.00 MVA PHT: 2.47 Decel Dolores: 3.95 Aortic Valve AoV Pk Franck: 2.17 AoV Mn Franck: 1.49 AoV VTI: 0.47 AoV Pk Grad: 19.00 Aov Mn Grad: 10.00 LIANA Cont.VTI: 1.99 LVOT LVOT Pk Franck: 1.60 LVOT Mn Franck: 0.93 LVOT VTI: 0.33 LVOT Pk Grad: 10.00 LVOT Mn Grad: 4.00 LVOT Diam: 1.90 LVOT Area: 2.84 Diastolic Function MV Pk E: 1.20 MV Pk A: 1.33 E/A: 0.90 E'Medial: 7.40 E/E' Med: 16.20 E' Laterial: 11.00 E/E' Lat: 10.90 Right Ventricle TAPSE (mm): 23.00 TVS' Franck: 17.10 Tricuspid Valve RA Press: 3.00 Great Vessels Aorta Sinus of Valsalva: 2.77 2.0-3.5 cm Updated in Other Vendor System with Status of Final Jordan Reid MD electronically signed on 03/01/2025 11:38:03 AM with status of Final
[2025-03-01] MEDS: Furosemide 40 MG/4 ML VIAL IVPUSH (09:14)
[2025-03-01] MEDS: 0.9 % Sodium Chloride Flush 3 ML SYRINGE IVFLUSH ×3 (09:14→20:53)
[2025-03-01] MEDS: Heparin Sodium,Porcine 5,000 UNIT/ML VIAL 5000 UNIT SUBCUT ×2 (09:14→18:25)
--- NOTE | 2025-03-01 10:30 | P.CONCA_ITS ---
History of Present Illness History of Present Illness Date of Service: 03/01/25 Requesting physician: Tim Gordillo Consult reason: shortness of breath Chief complaint: Acute CHF Narrative: I was consulted to see Fariha in cardiology consultation today for respiratory distress and shortness of breath. She is a 79 year female who is traveling from [place] and visiting a friend on business. Sudden night she started having increased cough productive of yellowish phlegm and eventually decided to come to the emergency room as she continued to have shortness of breath. She says she was admitted in January in [place] with shortness of breath and was told that she had congestive heart failure. At that time she had generalized body swelling and leg edema and arm edema. Subsequently she said she had workup and was told everything was okay and she seen a plastics design engineer and is currently on furosemide 20 mg at home. She came to the hospital and was noted to be hypoxemic with BNP in normal limits. She had no significant leg swelling or arm swelling. She was no other signs of fluid overload. She has been treated with bronchodilators and antibiotics and was given Lasix. 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 She was also prior history of hypertension, hyperlipidemia, COPD. She has no history of vascular disease or coronary artery disease. Her troponins were flat. EKG shows no acute ischemia. Cardiology consult was sought for possible congestive office seen on chest x-ray. Review of Systems 2 Constitutional: Constitutional: Denies body ache(s), Denies chills, Denies fever(s) and Denies night sweats Eyes: Eyes: Reports no additional eye complaints Cardiovascular: Cardiovascular: Denies chest pain, Denies leg edema, Denies lightheadedness, Denies Loss of Consciousness, Denies palpitations, Reports dyspnea and Reports dyspnea on exertion Respiratory: Respiratory: Reports cough, Reports excessive phlegm production, Reports dyspnea and Reports dyspnea on exertion Gastrointestinal: Gastrointestinal: Reports no additional gastrointestinal complaints Musculoskeletal: Musculoskeletal: Reports no additional musculoskeletal complaints Integumentary/Breasts: Skin/Breast: Reports system reviewed and no additional complaints, except as docu Psychiatric: Psychiatric: Reports no additional psychiatric complaints Endocrine: Endocrine: Denies palpitations PMFSH Social History Social History Smoked in Last 30 Days: No Use of substances other than those prescribed or required for medical reasons: No Advance Directives: No Advance Directives Information Provided: Yes Do you have a plan to hurt others: No Plan Meds Allergies Allergy/AdvReac Type Severity Reaction Status Date / Time Sulfa (Sulfonamide Allergy Shortness Verified 02/28/25 17:37 Antibiotics) of Breath Active Medications: Current Medications Acetaminophen (Acetaminophen 325 Mg Tablet) 650 mg PO Q6H PRN PRN Reason: Pain, Mild 1-3,fever,headache Albuterol/Ipratropium (Albuterol/Iprat 2.5/0.5mg 3 Ml Ampul.Neb) 3 ml INHALE RQ4H WHILE AWAKE PRN PRN Reason: Shortness of Breath Benzonatate (Benzonatate 100 Mg Capsule) 100 mg PO TID PRN PRN Reason: Cough Calcium Carbonate (Calcium Carbonate 750 Mg Tab.Chew) 750 mg PO Q4H PRN PRN Reason: Heartburn Doxycycline Monohydrate (Doxycycline Monohydrate 100 Mg Capsule) 100 mg PO BID [facility] Last Admin: 03/01/25 03:39 Dose: 100 mg Furosemide (Furosemide 40 Mg/4 Ml Vial) 40 mg IVPUSH DAILY [facility]; Protocol Last Admin: 03/01/25 09:14 Dose: 40 mg Heparin Sodium (Porcine) (Heparin Sodium,Porcine 5,000 Unit/Ml Vial) 5,000 unit SUBCUT Q8H [facility] Last Admin: 03/01/25 09:14 Dose: 5,000 unit Magnesium Hydroxide (Milk Of Magnesia 30 Ml Oral.Susp) 30 ml PO DAILY PRN PRN Reason: Constipation Melatonin (Melatonin 3 Mg Tablet) 6 mg PO BEDTIME PRN PRN Reason: Insomnia Sodium Chloride (0.9 % Sodium Chloride Flush 3 Ml Syringe) 3 ml IVFLUSH QSHIFT [facility] Last Admin: 03/01/25 09:14 Dose: 3 ml Home Medications ?Medication ?Instructions ?Recorded ?Confirmed ?Last Taken ?Type albuterol sulfate 90 mcg/actuation 2 puff inhalation Q6H PRN wheezing 03/01/25 03/01/25 Unknown History aerosol inhaler allopurinol 100 mg tablet 100 mg PO BEDTIME 03/01/25 03/01/25 02/27/25 History aspirin 81 mg chewable tablet 81 mg PO DAILY 03/01/25 03/01/25 02/27/25 History atorvastatin 80 mg tablet 80 mg PO BEDTIME 03/01/25 03/01/25 02/27/25 History benzonatate 100 mg capsule 100 mg PO TID PRN Cough 03/01/25 03/01/25 Unknown History calcitriol 0.25 mcg capsule 0.25 mcg PO DAILY 03/01/25 03/01/25 02/27/25 History furosemide 20 mg tablet 20 mg PO DAILY 03/01/25 03/01/25 02/27/25 History gabapentin 100 mg capsule 200 mg PO BID 03/01/25 03/01/25 02/27/25 History magnesium salicylate (Francisco's Extra 1,160 mg PO Q6H PRN Back Pain 03/01/25 03/01/25 Unknown History Strength) metolazone 5 mg tablet 5 mg PO BEDTIME 03/01/25 03/01/25 02/27/25 History metoprolol tartrate 25 mg tablet 12.5 mg PO BID 03/01/25 03/01/25 02/27/25 History nifedipine 90 mg tablet,extended 90 mg PO DAILY 03/01/25 03/01/25 02/27/25 History release 24 hr Physical Exam 2 Vital Signs: Vital Signs: Last Vital Signs Temp 98.2 F 03/01/25 08:35 Pulse 71 03/01/25 08:35 Resp 18 03/01/25 08:35 BP 145/64 H 03/01/25 08:35 Pulse Ox 96 03/01/25 08:35 O2 Del Method Nasal Cannula 03/01/25 08:35 O2 Flow Rate 2 03/01/25 08:35 BMI result Body Mass Index 30.9 Const: General: cooperative, comfortable, alert and awake Nutritional Appearance: overweight Orientation/consciousness: patient oriented x3 HEENT: Head: Yes normocephalic and Yes atraumatic Neck: Neck: Yes trachea midline, Yes supple and Yes no JVD Resp: Effort & Inspection: decreased respiratory effort Auscultation: c rackles (Coarse) Cardio: Jugular venous distension: no JVD Rate: regular rate Rhythm: r egular rhythm Heart sounds: S1 normal heart sound present, S2 normal heart sound present, no click, no gallops, no murmurs and no rubs GI: Auscultation: normal bowel sounds Skin: General skin exam: no rashes or lesions noted Neuro: General: patient oriented x3 and no focal motor deficits Extrem: General: Yes no clubbing, cyanosis or edema Objective Labs and Meds 03/01/25 04:45 03/01/25 04:45 Lab results: Laboratory Results - last 24 hr 02/28/25 02/28/25 02/28/25 18:05 18:11 19:46 WBC 9.8 RBC 3.67 L Hgb 10.8 L Hct 33.4 L MCV 91.0 MCH 29.4 MCHC 32.3 RDW 14.1 Plt Count 224 MPV 10.1 Immature Gran % (Auto) 0.3 Neut % (Auto) 59.7 Lymph % (Auto) 9.9 L [place] % (Auto) 7.0 Eos % (Auto) 22.7 H Baso % (Auto) 0.4 Lymph # (Auto) 1.0 L [place] # (Auto) 0.7 Eos # (Auto) 2.2 H Baso # (Auto) 0.0 Abs Immat Gran (auto) 0.03 Absolute Neuts (auto) 5.8 Absolute Nucleated RBC 0.000 Nucleated RBC % (auto) 0.0 Smear Tech's Comments VERIFIED D-Dimer High Sensitivty 468 VBG pH 7.35 VBG pCO2 59 VBG pO2 54 VBG HCO3 33 H VBG O2 Saturation 82.0 VBG Base Excess 6.1 Sodium 145 Potassium 3.6 Chloride 104 Carbon Dioxide 26 Anion Gap 19 BUN 55 H Creatinine 1.95 H Estim Creat Clear Calc 24.1 Estimated GFR 25 Random Glucose 91 Calcium 10.5 H Magnesium 1.7 Total Bilirubin 0.4 AST 34 H ALT 18 Alkaline Phosphatase 86 Troponin I High Sens 277.8 H* B-Natriuretic Peptide 83 Total Protein 6.4 L Albumin 3.7 Influenza Type A (PCR) NEGATIVE Influenza Type B (PCR) NEGATIVE RSV RNA Qual (PCR) NEGATIVE SARS-CoV-2 RNA (RT-PCR) NEGATIVE 02/28/25 03/01/25 03/01/25 21:25 02:26 04:45 WBC 9.7 RBC 3.49 L Hgb 10.0 L Hct 32.0 L MCV 91.7 MCH 28.7 MCHC 31.3 RDW 13.9 Plt Count 212 MPV 9.7 Immature Gran % (Auto) 0.3 Neut % (Auto) 60.1 Lymph % (Auto) 9.1 L [place] % (Auto) 8.1 Eos % (Auto) 22.1 H Baso % (Auto) 0.3 Lymph # (Auto) 0.9 L [place] # (Auto) 0.8 Eos # (Auto) 2.2 H Baso # (Auto) 0.0 Abs Immat Gran (auto) 0.03 Absolute Neuts (auto) 5.8 Absolute Nucleated RBC 0.000 Nucleated RBC % (auto) 0.0 Smear Tech's Comments VERIFIED D-Dimer High Sensitivty VBG pH VBG pCO2 VBG pO2 VBG HCO3 VBG O2 Saturation VBG Base Excess Sodium 145 Potassium 3.3 Chloride 106 Carbon Dioxide 28 Anion Gap 14 BUN 58 H Creatinine 1.97 H Estim Creat Clear Calc 23.8 Estimated GFR 25 Random Glucose 97 Calcium 10.2 Magnesium Total Bilirubin 0.2 AST 35 H ALT 14 Alkaline Phosphatase 77 Troponin I High Sens 295.6 H* 284.4 H* B-Natriuretic Peptide Total Protein 5.6 L Albumin 3.5 Influenza Type A (PCR) Influenza Type B (PCR) RSV RNA Qual (PCR) SARS-CoV-2 RNA (RT-PCR) Imaging Radiologist's impression: Impressions Pulmonary Perfusion Imaging 03/01/25 07:55 IMPRESSION: Normal perfusion study. Ventilation study was not performed. Electronically signed by: Low Thompson MD 03/01/2025 08:48 AM EDT RP Assessment and Plan (1) Hypoxia: Status: Acute Acute hypoxemic respiratory failure in his elderly woman appears to be related to COPD exacerbation. At this point time I do not see any clinical signs of congestive heart failure. BNP is normal and there was no evidence of fluid overload on clinical exam. She has history of prior CHF and should be restarted on her usual dose of Lasix. She does have also prior history of CKD and should try to obtain labs from [place] if possible to see what her baseline creatinine in his. Continue treat underlying pulmonary condition with bronchodilators as well as antibiotics. Patient currently still requires oxygen and will probably require hospitalization related to it. This was discussed with her. She was very anxious to get back to her home. Consider echocardiogram. (2) Elevated troponin: Status: Acute Mildly elevated troponin which are flat with no clear rise and fall suggestive of acute myocardial injury. This is most likely related to hypoxemia and possibly underlying chronic kidney disease. However given her multiple risk factors can pursue outpatient follow-up for ischemia once her pulmonary situation resolved and can be done back home. Will sign of the case. Thank you for allowing me to partake in her care Procedures Date of Service Date of Service: 03/01/25
--- NOTE | 2025-03-01 10:52 | P.CONNP_ITS ---
History of Present Illness Reason for Consult Consult date: 03/01/25 Chief Complaint Chief complaint: Acute CHF History of Present Illness Narrative: 79-year-old female with a past medical history of HTN as well as CKD who follows up with a foreign exchange trader in [place] presented to the hospital with shortness of breath. She is visiting [place] . Prior to presentation she has been having cough with yellow sputum production associated with shortness of breath without any chest pain or palpitations. Apparently she was recently diagnosed with new onset CHF and is on Lasix and metolazone at home which he has been compliant. She is aware that she has CKD but unaware of it etiology. She has long standing hypertension which she she feels has not been at goal all the time. She is not a diabetic and denies PAD, awareness of RAD, CAD or CVA. She was admitted and was initiated on diuretics. Her serum creatinine is 1.97. Nephrology was consulted to assist in her clinical care during her current hospital stay Review of Systems Review of Systems Yes all other systems are reviewed and are negative PENDING SALE TO [facility] Social History Social History Smoked in Last 30 Days: No Use of substances other than those prescribed or required for medical reasons: No Advance Directives: No Advance Directives Information Provided: Yes Do you have a plan to hurt others: No Plan Meds Allergies Allergy/AdvReac Type Severity Reaction Status Date / Time Sulfa (Sulfonamide Allergy Shortness Verified 02/28/25 17:37 Antibiotics) of Breath Active Medications: Current Medications Acetaminophen (Acetaminophen 325 Mg Tablet) 650 mg PO Q6H PRN PRN Reason: Pain, Mild 1-3,fever,headache Albuterol/Ipratropium (Albuterol/Iprat 2.5/0.5mg 3 Ml Ampul.Neb) 3 ml INHALE RQ4H WHILE AWAKE PRN PRN Reason: Shortness of Breath Benzonatate (Benzonatate 100 Mg Capsule) 100 mg PO TID PRN PRN Reason: Cough Calcium Carbonate (Calcium Carbonate 750 Mg Tab.Chew) 750 mg PO Q4H PRN PRN Reason: Heartburn Doxycycline Monohydrate (Doxycycline Monohydrate 100 Mg Capsule) 100 mg PO BID [facility] Last Admin: 03/01/25 03:39 Dose: 100 mg Furosemide (Furosemide 40 Mg/4 Ml Vial) 40 mg IVPUSH DAILY [facility]; Protocol Last Admin: 03/01/25 09:14 Dose: 40 mg Heparin Sodium (Porcine) (Heparin Sodium,Porcine 5,000 Unit/Ml Vial) 5,000 unit SUBCUT Q8H [facility] Last Admin: 03/01/25 09:14 Dose: 5,000 unit Hydralazine HCl (Hydralazine Hcl 10 Mg Tablet) 10 mg PO BID [facility]; Protocol Isosorbide Mononitrate (Isosorbide Mononitrate 30 Mg Tab.Er.24h) 30 mg PO DAILY [facility]; Protocol Magnesium Hydroxide (Milk Of Magnesia 30 Ml Oral.Susp) 30 ml PO DAILY PRN PRN Reason: Constipation Melatonin (Melatonin 3 Mg Tablet) 6 mg PO BEDTIME PRN PRN Reason: Insomnia Sodium Chloride (0.9 % Sodium Chloride Flush 3 Ml Syringe) 3 ml IVFLUSH QSHIFT [facility] Last Admin: 03/01/25 09:14 Dose: 3 ml Home Medications ?Medication ?Instructions ?Recorded ?Confirmed ?Last Taken ?Type albuterol sulfate 90 mcg/actuation 2 puff inhalation Q6H PRN wheezing 03/01/25 03/01/25 Unknown History aerosol inhaler allopurinol 100 mg tablet 100 mg PO BEDTIME 03/01/25 03/01/25 02/27/25 History aspirin 81 mg chewable tablet 81 mg PO DAILY 03/01/25 03/01/25 02/27/25 History atorvastatin 80 mg tablet 80 mg PO BEDTIME 03/01/25 03/01/25 02/27/25 History benzonatate 100 mg capsule 100 mg PO TID PRN Cough 03/01/25 03/01/25 Unknown History calcitriol 0.25 mcg capsule 0.25 mcg PO DAILY 03/01/25 03/01/25 02/27/25 History furosemide 20 mg tablet 20 mg PO DAILY 03/01/25 03/01/25 02/27/25 History gabapentin 100 mg capsule 200 mg PO BID 03/01/25 03/01/25 02/27/25 History magnesium salicylate (Francisco's Extra 1,160 mg PO Q6H PRN Back Pain 03/01/25 03/01/25 Unknown History Strength) metolazone 5 mg tablet 5 mg PO BEDTIME 03/01/25 03/01/25 02/27/25 History metoprolol tartrate 25 mg tablet 12.5 mg PO BID 03/01/25 03/01/25 02/27/25 History nifedipine 90 mg tablet,extended 90 mg PO DAILY 03/01/25 03/01/25 02/27/25 History release 24 hr Physical Exam Vital Signs: Last Vital Signs Temp 98.2 F 03/01/25 08:35 Pulse 71 03/01/25 08:35 Resp 18 03/01/25 08:35 BP 145/64 H 03/01/25 08:35 Pulse Ox 96 03/01/25 08:35 O2 Del Method Nasal Cannula 03/01/25 08:35 O2 Flow Rate 2 03/01/25 08:35 BMI result Body Mass Index 30.9 Const General: no acute distress Orientation/consciousness: patient oriented x3 Eyes EOM: EOMs intact bilaterally Neck Neck: Yes supple Resp Auscultation: diminished lung sounds Cardio Rate: regular rate GI Palpation (GI): Soft to palpation General: Yes no CVA tenderness Back/Spine/Pelvis Back: no CVA tenderness Skin General skin exam: no rashes or lesions noted Neuro General: patient oriented x3 and moves all extremities Results Lab Results 03/01/25 04:45 03/01/25 04:45 Lab results: Chemistry 02/28/25 03/01/25 18:05 04:45 Sodium 145 145 Potassium 3.6 3.3 Carbon Dioxide 26 28 BUN 55 H 58 H Creatinine 1.95 H 1.97 H Calcium 10.5 H 10.2 Hematology 02/28/25 03/01/25 18:05 04:45 WBC 9.8 9.7 Hgb 10.8 L 10.0 L Plt Count 224 212 Assessment and Plan (1) CKD stage 3b, GFR 30-44 ml/min: Status: Acute (2) Hypertension: Qualifiers: Hypertension type: primary hypertension Qualified Code(s): I10 - Essential (primary) hypertension Status: Acute (3) Anemia in chronic kidney disease: Qualifiers: Chronic kidney disease stage: stage 3 (moderate) Chronic kidney disease stage 3 subtype: stage 3b (GFR 30-44) Qualified Code(s): N18.32 - Chronic kidney disease, stage 3b; D63.1 - Anemia in chronic kidney disease Status: Acute (4) Secondary hyperparathyroidism (of renal origin): Status: Acute Plan Unsure of baseline creatinine but may be close to baseline Never had renal biopsy; CKD ? due to hypertensive renal dsiease Ordered Immunofixation ( has back pain), PTH, Vit D, Urine Pr/Cr ratio Ordered Doppler of renal arteries; Going to get ECHO BP needs to be kept @ goal; Started Isosorbide/Hydralazine Currently on diuretics; Low sodium in diet; Daily weights Wants to go back on [place] in 48 hours( has a return flight ticket) All these have been explained in detail; Labs AM Procedures Date of Service Date of Service: 03/01/25
[2025-03-01] MEDS: Isosorbide Mononitrate 30 MG TAB.ER.24H PO (11:20)
--- NOTE | 2025-03-01 11:27 | MHC.CM.PN ---
Addendum entered by Preeti Graf RN 03/01/25 11:33: ANTIC PT WILL DC TO FRIEND [facility] HOME TODAY, PT WILL ARRANGE TRANSPORT Original Note: IMM 03/01/25, EMR REVIEWED, PT ADMITTED W/ACUTE CHF HOWEVER NOT LIKELY CHF POER HOSPITALIST, PT REPORTS SHE IS STAYING W/FRIEND [facility] AND WILL RETURNING TO [facility] ON DC. PT REPORTS SHE IS FULLY INDEP, DENIES USE OF DME OTHER THAN A CANE WHICH IS SINGLE PRONG AND AT BEDSIDE. PT'S GOAL FOR DC IS TODAY IF POSSIBLE TO [facility] HOME. PT REPORTS SHE HAS A HCP AT HOME IN [place] RYLAND GUZMAN [phone], PCP VERIFIED SANDRA WALTER.
--- NOTE | 2025-03-01 13:38 | PM.EVENT ---
Event Note Date of Service: 03/01/25 Event Note: Chart reviewed patient examined. Agree with history and physical and assessment as planned. Discussed with Renal and Cardiology Time Spent With Patient Time: Total time managing care of this patient today ____ minutes.
--- NOTE | 2025-03-01 14:18 | PHA.MEDREC ---
Pharmacy Consult ? Medication Reconciliation Pharmacy has completed the medication reconciliation.Med rec complete, patient had all her medication bottles with her to verify
[2025-03-01] MEDS: Gabapentin 100 MG CAPSULE 200 MG PO ×2 (14:44→20:53)
[2025-03-01] MEDS: calcitrioL 0.25 MCG CAPSULE PO (14:45)
[2025-03-01] MEDS: Aspirin 81 MG TAB.CHEW PO (14:45)
[2025-03-01] MEDS: allopurinoL 100 MG TABLET PO (20:53)
[2025-03-01] MEDS: Atorvastatin Calcium 80 MG TABLET PO (20:53)
[2025-03-01] MEDS: metOLazone 5 MG TABLET PO (20:53)
[2025-03-01] MEDS: Metoprolol Tartrate 12.5 MG HALFTAB PO (20:53)
[2025-03-01] MEDS: hydrALAZINE HCl 10 MG TABLET PO (20:53)
[2025-03-02] VITALS (8 sets, daily range): BP systolic 100–134; BP diastolic 53–61; PULSE 75–117; RESP 16–19; TEMP 36.3–37.4; O2SAT 91–100
--- NOTE | 2025-03-02 | ECG_ITS ---
Test Reason : CP Blood Pressure : */* mmHG Vent. Rate : 125 BPM Atrial Rate : * BPM P-R Int : * ms QRS Dur : 122 ms QT Int : 326 ms P-R-T Axes : * 1 170 degrees QTcB Int : 470 ms Atrial fibrillation with rapid ventricular response Minimal voltage criteria for LVH, may be normal variant ( [place] product ) Septal infarct , age undetermined Marked ST abnormality, possible lateral subendocardial injury Abnormal ECG When compared with ECG of 28-Feb-2025 17:52, Atrial fibrillation with rapid ventricular response has replaced Normal sinus rhythm Referred By: Lexx Busch Electronically Signed By: ELZA QUINTANILLA MD
[2025-03-02 05:09] LABS: Creatinine Urine 73.21 mg/dL; Total Protein Urine Random < 7 mg/dL (<12)
[2025-03-02 07:49] LABS: Phosphorus 4.4 mg/dL (2.7-4.5)
[2025-03-02 07:52] LABS: Parathyroid Hormone Intact 41.8 pg/mL (8.7-77.1)
[2025-03-02 08:07] LABS: Vitamin D 25-OH Total 19.7 ng/mL (>30)
--- NOTE | 2025-03-02 08:24 | PM.PNNEP ---
Subjective Subjective Date of Service: 03/02/25 Physical Exam Vital Signs: Vital Signs: Last Vital Signs Temp 98.1 F 03/02/25 07:23 Pulse 75 03/02/25 07:23 Resp 18 03/02/25 07:23 BP 131/58 L 03/02/25 07:23 Pulse Ox 100 03/02/25 07:23 O2 Del Method Nasal Cannula 03/02/25 07:23 O2 Flow Rate 2 03/02/25 07:23 BMI result Body Mass Index 30.9 Const: General: no acute distress Orientation/consciousness: patient oriented x3 Eyes: EOM: EOMs intact bilaterally Neck: Neck: Yes supple Resp: Auscultation: diminished lung sounds Cardio: Rate: regular rate GI: Palpation (GI): Soft to palpation : General: Yes no CVA tenderness Back/Spine/Pelvis: Back: no CVA tenderness Skin: General skin exam: no rashes or lesions noted Neuro: General: patient oriented x3 and moves all extremities Objective Data Labs 03/01/25 04:45 03/01/25 04:45 Labs: Laboratory Results - last 24 hr 03/02/25 03/02/25 03:15 06:56 Phosphorus 4.4 25-OH Vitamin D Total 19.7 L PTH Intact 41.8 U Random Total Protein < 7 Urine Creatinine 73.21 Protein/Creatinin Ratio TNP Procedures Date of Service Date of Service: 03/02/25 Assessment & Plan Assessment and plan (1) CKD stage 3b, GFR 30-44 ml/min: Status: Acute (2) Hypertension: Status: Acute (3) Anemia in chronic kidney disease: Status: Acute (4) Secondary hyperparathyroidism (of renal origin): Status: Acute Plan Unsure of baseline creatinine but may be close to baseline Never had renal biopsy; CKD ? due to hypertensive renal dsiease Immunofixation - pending Urine Pr/Cr ratio - unremarkable BP needs to be kept @ goal; On Isosorbide/Hydralazine Currently on diuretics; Low sodium in diet; Daily weights Wants to go back on [place] in 48 hours( has a return flight ticket) Encouraged to follow up with her mri special procedures technologist within 2 weeks Time Spent With Patient Time: Total time managing care of this patient today ____ minutes. Progress Note: Quality Stroke Does the patient have a stroke diagnosis?: No
[2025-03-02] MEDS: 0.9 % Sodium Chloride Flush 3 ML SYRINGE IVFLUSH ×3 (08:45→20:17)
[2025-03-02] MEDS: Albuterol/Iprat 2.5/0.5MG 3 ML AMPUL.NEB INHALE ×2 (08:49→14:23)
[2025-03-02] MEDS: Doxycycline Monohydrate 100 MG CAPSULE PO ×2 (08:49→20:15)
[2025-03-02] MEDS: Gabapentin 100 MG CAPSULE 200 MG PO ×2 (08:50→20:16)
[2025-03-02] MEDS: hydrALAZINE HCl 10 MG TABLET PO ×2 (08:50→20:15)
[2025-03-02] MEDS: Metoprolol Tartrate 12.5 MG HALFTAB PO ×2 (08:50→20:15)
[2025-03-02] MEDS: calcitrioL 0.25 MCG CAPSULE PO (08:50)
[2025-03-02] MEDS: Aspirin 81 MG TAB.CHEW PO (08:50)
[2025-03-02] MEDS: Benzonatate 100 MG CAPSULE PO ×3 (08:50→20:17)
[2025-03-02] MEDS: Acetaminophen 325 MG TABLET 650 MG PO (08:50)
[2025-03-02] MEDS: NIFEdipine ER 90 MG TAB.ER.24 PO (08:50)
[2025-03-02] MEDS: Isosorbide Mononitrate 30 MG TAB.ER.24H PO (08:50)
[2025-03-02] MEDS: Furosemide 40 MG/4 ML VIAL IVPUSH (08:51)
[2025-03-02] MEDS: Heparin Sodium,Porcine 5,000 UNIT/ML VIAL 5000 UNIT SUBCUT ×3 (08:51→23:33)
[2025-03-02] MEDS: methylPREDNISolone Sod Succ 125 MG/2 ML VIAL IVPUSH (10:38)
--- NOTE | 2025-03-02 14:32 | HO.PM.IMPN ---
Subjective Subjective Date of Service: 03/02/25 Interval History: Notes some improvement overnight. Still quite wheezy Review of Systems Denies chest pain Denies shortness of breath Denies nausea vomiting diarrhea Denies fever chills Physical Exam Vital Signs: Vital Signs: Last Vital Signs Temp 97.4 F 03/02/25 11:06 Pulse 75 03/02/25 11:06 Resp 18 03/02/25 11:06 BP 100/59 L 03/02/25 11:06 Pulse Ox 94 03/02/25 11:06 O2 Del Method Room Air 03/02/25 11:06 O2 Flow Rate 2 03/02/25 07:23 BMI result Body Mass Index 30.9 Const: Other: Awake alert oriented x3 in no acute distress Resp: Other: Scattered expiratory wheezes all west with aeration to bases Cardio: Other: No S4; positive S1-S2; no S3 murmurs rubs or gallops GI: Other: Soft nontender nondistended normoactive bowel sounds Neuro: Other: Cranial nerves 2-12 grossly intact as tested. Motor is 5/5 all extremities. Sensation is intact Extrem: Other: No edema bilaterally Objective Data Active Medications Acetaminophen (Acetaminophen 325 Mg Tablet) 650 mg PO Q6H PRN PRN Reason: Pain, Mild 1-3,fever,headache Last Admin: 03/02/25 08:50 Dose: 650 mg Documented By: GILBERTO Albuterol/Ipratropium (Albuterol/Iprat 2.5/0.5mg 3 Ml Ampul.Neb) 3 ml INHALE RQ4H WHILE AWAKE PRN PRN Reason: Shortness of Breath Last Admin: 03/02/25 14:23 Dose: 3 ml Documented By: GILBERTO Allopurinol (Allopurinol 100 Mg Tablet) 100 mg PO BEDTIME [facility] Last Admin: 03/01/25 20:53 Dose: 100 mg Documented By: BLANCA Aspirin (Aspirin 81 Mg Tab.Chew) 81 mg PO DAILY [facility] Last Admin: 03/02/25 08:50 Dose: 81 mg Documented By: GILBERTO Atorvastatin Calcium (Atorvastatin Calcium 80 Mg Tablet) 80 mg PO BEDTIME [facility] Last Admin: 03/01/25 20:53 Dose: 80 mg Documented By: BLANCA Benzonatate (Benzonatate 100 Mg Capsule) 100 mg PO TID PRN PRN Reason: Cough Last Admin: 03/02/25 14:23 Dose: 100 mg Documented By: GILBERTO Calcitriol (Calcitriol 0.25 Mcg Capsule) 0.25 mcg PO DAILY [facility] Last Admin: 03/02/25 08:50 Dose: 0.25 mcg Documented By: GILBERTO Calcium Carbonate (Calcium Carbonate 750 Mg Tab.Chew) 750 mg PO Q4H PRN PRN Reason: Heartburn Doxycycline Monohydrate (Doxycycline Monohydrate 100 Mg Capsule) 100 mg PO BID [facility] Last Admin: 03/02/25 08:49 Dose: 100 mg Documented By: GILBERTO Furosemide (Furosemide 40 Mg/4 Ml Vial) 40 mg IVPUSH DAILY [facility]; Protocol Last Admin: 03/02/25 08:51 Dose: 40 mg Documented By: GILBERTO Gabapentin (Gabapentin 100 Mg Capsule) 200 mg PO BID [facility] Last Admin: 03/02/25 08:50 Dose: 200 mg Documented By: GILBERTO Heparin Sodium (Porcine) (Heparin Sodium,Porcine 5,000 Unit/Ml Vial) 5,000 unit SUBCUT Q8H [facility] Last Admin: 03/02/25 14:21 Dose: Not Given Documented By: GILBERTO Non-Admin Reason: Patient Refused Hydralazine HCl (Hydralazine Hcl 10 Mg Tablet) 10 mg PO BID [facility]; Protocol Last Admin: 03/02/25 08:50 Dose: 10 mg Documented By: GILBERTO Isosorbide Mononitrate (Isosorbide Mononitrate 30 Mg Tab.Er.24h) 30 mg PO DAILY [facility]; Protocol Last Admin: 03/02/25 08:50 Dose: 30 mg Documented By: GILBERTO Magnesium Hydroxide (Milk Of Magnesia 30 Ml Oral.Susp) 30 ml PO DAILY PRN PRN Reason: Constipation Melatonin (Melatonin 3 Mg Tablet) 6 mg PO BEDTIME PRN PRN Reason: Insomnia Metolazone (Metolazone 5 Mg Tablet) 5 mg PO BEDTIME [facility] Last Admin: 03/01/25 20:53 Dose: 5 mg Documented By: BLANCA Metoprolol Tartrate (Metoprolol Tartrate 12.5 Mg Halftab) 12.5 mg PO BID [facility]; Protocol Last Admin: 03/02/25 08:50 Dose: 12.5 mg Documented By: GILBERTO Nifedipine (Nifedipine Er 90 Mg Tab.Er.24) 90 mg PO DAILY [facility]; Protocol Last Admin: 03/02/25 08:50 Dose: 90 mg Documented By: GILBERTO Sodium Chloride (0.9 % Sodium Chloride Flush 3 Ml Syringe) 3 ml IVFLUSH QSHIFT [facility] Last Admin: 03/02/25 10:40 Dose: 3 ml Documented By: GILBERTO Labs 03/01/25 04:45 03/01/25 04:45 Labs: Laboratory Results - last 24 hr 03/02/25 03/02/25 03:15 06:56 Phosphorus 4.4 25-OH Vitamin D Total 19.7 L PTH Intact 41.8 U Random Total Protein < 7 Urine Creatinine 73.21 Protein/Creatinin Ratio TNP Assessment and Plan (1) Hypoxia: Status: Acute (2) COPD exacerbation: Status: Acute (3) CKD stage 3b, GFR 30-44 ml/min: Status: Acute Plan 79-year-old female with a past medical history of HTN, HLD, CKD, CHF, COPD presented to the hospital today with a chief complaint of shortness of breath. Admitted for following 1. Acute hypoxic respiratory failure secondary to COPD exacerbation -add pulse dose methylprednisolone; 125 this a.m. and 60 q.6 starting at 18:00 -titrate O2 to maintain sats greater than or equal to 92% -DuoNebs p.r.n. -doxycycline (2) 2.CARMEN on CKD -creatinine likely at baseline -resume oral Lasix dosing -follow renals/divalents 3. Primary hypertension -acceptable control on current therapies -adjust as indicated Heparin Full code Quality Stroke Does the patient have a stroke diagnosis?: No VTE Prior VTE?: No VTE Risk Level:: Medical - moderate - high VTE Device Contraindication: Treatment Not Indicated VTE Drug Contraindication: N/A - Med Ordered
[2025-03-02] MEDS: methylPREDNISolone Sod Succ 125 MG/2 ML VIAL 60 MG IVPUSH ×2 (16:15→23:31)
--- NOTE | 2025-03-02 17:20 | PM.EVENT ---
Event Note Date of Service: 03/02/25 Event Note: found ot be in new onset afib with rvr asyptomatic will give ns 500cc and 5mg lopressor iv Time Spent With Patient Time: Total time managing care of this patient today ____ minutes.
[2025-03-02] MEDS: 0.9 % Sodium Chloride 500 ML 999 ML IV (17:22)
[2025-03-02] MEDS: Metoprolol Tartrate 5 MG/5 ML VIAL IVPUSH (17:24)
[2025-03-02] MEDS: allopurinoL 100 MG TABLET PO (20:15)
[2025-03-02] MEDS: metOLazone 5 MG TABLET PO (20:16)
[2025-03-02] MEDS: Atorvastatin Calcium 80 MG TABLET PO (20:16)
[2025-03-02] MEDS: Melatonin 3 MG TABLET 6 MG PO (20:17)
[2025-03-03] VITALS: BP 120/59; PULSE 77; RESP 16; TEMP 37.1; O2SAT 93
[2025-03-03 04:00] VITALS: BP 132/62; PULSE 70; RESP 16; TEMP 36.6; O2SAT 96
[2025-03-03 05:40] VITALS: BMI 32.8
[2025-03-03] MEDS: methylPREDNISolone Sod Succ 125 MG/2 ML VIAL 60 MG IVPUSH ×2 (05:52→12:04)
[2025-03-03 06:53] LABS: MANUAL DIFF FLAG NO
[2025-03-03 07:02] LABS: Basophils Percent Auto 0.2 % (0-2); Hematocrit 31.2 % (37.0-47.0); Hemoglobin 10.3 g/dl (12.0-16.0); Imm Gran Abs Auto 0.02 X10*3/uL (0.00-0.03); Imm Gran Pct Auto 0.3 % (0.0-0.4); Lymphocytes Absolute Auto 0.6 X10*3/uL (1.2-4.9); Lymphocytes Percent Auto 10.6 % (20-40); Mean Corpuscular Hemoglobin 28.9 pg (27.0-33.0); Mean Corpuscular Volume 87.4 fL (80.0-98.0); Mean Platelet Volume 10.1 fL (9.4-12.3); Monocytes Absolute Auto 0.1 X10*3/uL (0.1-1.2); Monocytes Percent Auto 1.2 % (2-11); Neutrophils Absolute Auto 5.1 x10*3/uL (2.0-8.3); Neutrophils Percent Auto 87.7 % (45-73); Platelet Count 219 X10*3/uL (160-400); Red Blood Count 3.57 X10*6/uL (4.20-5.50); Red Cell Distribution Width 13.4 % (11.0-16.0); White Blood Count 5.8 X10*3/uL (4.8-10.8)
[2025-03-03 07:12] LABS: Alanine Aminotransferase 10 U/L (0-31); Albumin Level 3.5 g/dL (3.5-5.0); Anion Gap 14 (12-20); Aspartate Amino Transferase 23 U/L (5-31); Bilirubin Total 0.4 mg/dL (0.0-1.0); Blood Urea Nitrogen 59 mg/dL (9-16); Calcium 10.2 mg/dL (8.4-10.2); Carbon Dioxide 31 mmol/L (22-29); Chloride 100 mmol/L (96-108); Creatinine Clr Calc Pharmacy 28.4; Estimated Glomerular Filt Rate 29; Glucose Fasting 154 mg/dL (60-99); Sodium 142 mmol/L (135-145)
[2025-03-03 07:24] LABS: Alkaline Phosphatase 70 U/L (39-117)
[2025-03-03 08:00] VITALS: BP 122/54; PULSE 70; RESP 18; TEMP 36.3; O2SAT 96
[2025-03-03] MEDS: Isosorbide Mononitrate 30 MG TAB.ER.24H PO (08:51)
[2025-03-03] MEDS: hydrALAZINE HCl 10 MG TABLET PO (08:51)
[2025-03-03] MEDS: calcitrioL 0.25 MCG CAPSULE PO (08:51)
[2025-03-03] MEDS: NIFEdipine ER 90 MG TAB.ER.24 PO (08:52)
[2025-03-03] MEDS: Heparin Sodium,Porcine 5,000 UNIT/ML VIAL 5000 UNIT SUBCUT (08:52)
[2025-03-03] MEDS: Doxycycline Monohydrate 100 MG CAPSULE PO (08:52)
[2025-03-03] MEDS: Aspirin 81 MG TAB.CHEW PO (08:52)
[2025-03-03] MEDS: Furosemide 20 MG TABLET PO (08:52)
[2025-03-03] MEDS: Gabapentin 100 MG CAPSULE 200 MG PO (08:52)
[2025-03-03] MEDS: Metoprolol Tartrate 12.5 MG HALFTAB PO (08:52)
[2025-03-03] MEDS: Milk of Magnesia 30 ML ORAL.SUSP PO (09:12)
[2025-03-03] MEDS: 0.9 % Sodium Chloride Flush 3 ML SYRINGE IVFLUSH (09:14)
[2025-03-03] MEDS: Nystatin Powder 15 GM BOTTLE 1 APPL TOPICAL (09:15)
[2025-03-03 11:08] VITALS: BP 106/53; PULSE 64; RESP 18; TEMP 36.2; O2SAT 98
--- NOTE | 2025-03-03 11:42 | PM.DS ---
DS: Providers Provider Date of Service: 03/03/25 Date of admission: 03/01/25 02:08 Date of discharge: 03/03/25 Primary care physician: Unknown Physician Consults: 03/01/25 02:08 Consult to Cardiology Routine Consulting Provider: [facility] Reason for consultation: CHF Consult to Nephrology Routine Consulting Provider: [facility] Reason for consultation: CARMEN; pt in CHF DS: Diagnosis Discharge Diagnosis (1) Hypoxia: Status: Acute (2) COPD exacerbation: Status: Acute (3) CKD stage 3b, GFR 30-44 ml/min: Status: Acute DS: Summary Hospital Course Hospital Course: 79-year-old female with a past medical history of HTN, HLD, CKD, CHF, COPD presented to the hospital today with a chief complaint of shortness of breath. Patient reported that she basically lives in [place]. Came to [place] because of work related. Reports that she flew to [facility] from [place] in a flight. She was doing fine until yesterday. For the past 1 and half days she has been having cough with yellow sputum production. Has been having shortness of breath. Denies any chest pain or palpitations. Patient reports that she was recently diagnosed with new onset CHF and is on Lasix and metolazone at home which he has been compliant. Does not recall her echocardiogram shows. Does not recall her creatinine values. Denies any chest pain or palpitations. Denies any GI or symptoms. Review of all other systems is negative except mentioned above ER course: Per ER team, patient on presentation noted to be short of breath, has coarse breath sounds, chest x-ray showed pulmonary congestion concerning for acute CHF. On labs noted elevated creatinine of 1.9. Patient was given a dose of Lasix. D-dimer elevated. EKG nonischemic. Troponins [id number]. Hospital Course Admitted to telemetry where monitor showed 1 episode of self-limiting atrial fibrillation. She was seen in consultation by Cardiology who did not feel her presentation was CHF but rather COPD exacerbation. She was continued on IV antibiotics and switch to oral doxycycline 24 hours before discharge. She received pulse dose methylprednisolone which will be converted to a prednisone taper. She had a worsening of her renal function and she was seen by Nephrology who adjusted medications. 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 Time Attestation Discharge Coordination Time (in mins): 35 Quality: Safe Use of Opioids Does Pt have an Active Cancer Diagnosis on the Problem List?: No Quality: Stroke Does the patient have a stroke diagnosis?: No Physical Exam Vital Signs: Vital Signs: Last Vital Signs Temp 97.1 F 03/03/25 11:08 Pulse 64 03/03/25 11:08 Resp 18 03/03/25 11:08 BP 106/53 L 03/03/25 11:08 Pulse Ox 98 03/03/25 11:08 O2 Del Method Room Air 03/03/25 11:08 O2 Flow Rate 2 03/02/25 07:23 BMI result Body Mass Index 32.8 Const: Other: Awake alert oriented x3 in no acute distress Resp: Other: Scattered expiratory wheezes all west with aeration to bases Cardio: Other: No S4; positive S1-S2; no S3 murmurs rubs or gallops GI: Other: Soft nontender nondistended normoactive bowel sounds Neuro: Other: Cranial nerves 2-12 grossly intact as tested. Motor is 5/5 all extremities. Sensation is intact Extrem: Other: No edema bilaterally DS: Data Data Completed and Pending Labs on day of discharge: Laboratory Results - last 24 hr 03/03/25 06:14 WBC 5.8 RBC 3.57 L Hgb 10.3 L Hct 31.2 L MCV 87.4 MCH 28.9 MCHC 33.0 RDW 13.4 Plt Count 219 MPV 10.1 Immature Gran % (Auto) 0.3 Neut % (Auto) 87.7 H Lymph % (Auto) 10.6 L [place] % (Auto) 1.2 L Eos % (Auto) 0.0 Baso % (Auto) 0.2 Lymph # (Auto) 0.6 L [place] # (Auto) 0.1 Eos # (Auto) 0.0 Baso # (Auto) 0.0 Abs Immat Gran (auto) 0.02 Absolute Neuts (auto) 5.1 Absolute Nucleated RBC 0.000 Nucleated RBC % (auto) 0.0 Sodium 142 Potassium 3.0 L Chloride 100 Carbon Dioxide 31 H Anion Gap 14 BUN 59 H Creatinine 1.70 H Estim Creat Clear Calc 28.4 Estimated GFR 29 Fasting Glucose 154 H Calcium 10.2 Total Bilirubin 0.4 AST 23 ALT 10 Alkaline Phosphatase 70 Total Protein 6.0 L Albumin 3.5 Discharge Plan Discharge Anticipated Discharge Date/Time: 03/03/25 11:34 Patient Disposition: Home, Self-Care Discharge Diagnosis: COPD exacerbation Referrals: Physician,Unknown J [Primary Care Provider] - 1 Week Discharge Medications: New hydralazine 10 mg Tablet 10 mg PO BID Qty: 60 0RF Protocol: Hold for SBP< HOLD for SBP < : 90 isosorbide mononitrate 30 mg Tablet Extended Release 24 Hr 30 mg PO DAILY Qty: 30 0RF Protocol: Hold for SBP< HOLD for SBP < : 90 doxycycline monohydrate 100 mg Capsule 100 mg PO BID Qty: 14 0RF prednisone 10 mg tablet See Rx Instructions .Route .COMPLEX Qty: 45 0RF Rx Instructions: 10 mg orally; 5 tabs p.o. daily x3 days; 4 tabs p.o. daily x3 days; 3 tabs daily x3 days; 2 tabs daily x3 days; 1 tab daily x3 days Continued allopurinol 100 mg Tablet 100 mg PO BEDTIME gabapentin 100 mg Capsule 200 mg PO BID calcitriol 0.25 mcg Capsule 0.25 mcg PO DAILY atorvastatin 80 mg Tablet 80 mg PO BEDTIME aspirin 81 mg Tablet,Chewable 81 mg PO DAILY Francisco's Extra Strength 580 (467) mg Tablet 1,160 mg PO Q6H PRN (Reason: Back Pain) metoprolol tartrate 25 mg Tablet 12.5 mg PO BID benzonatate 100 mg Capsule 100 mg PO TID PRN (Reason: Cough) furosemide 20 mg Tablet 20 mg PO DAILY metolazone 5 mg Tablet 5 mg PO BEDTIME albuterol sulfate 90 mcg/actuation HFA aerosol inhaler 2 puff INHALATION Q6H PRN (Reason: wheezing) nifedipine 90 mg Tablet Extended Release 24hr 90 mg PO DAILY Discharge Orders: Discharge Order (Routine); Ordered 03/03/25 Ordered By: Lexx Busch Diet: Advance to usual diet Activity on Discharge: As tolerated Stand Alone Forms: Patient Portal Discharge page Print Language: Spanish Care Plan Goals: Resume all medications as taken prior to hospitalization. Hydralazine 10 mg 3 times a day as well as Imdur 30 mg daily has been added to your regimen Health Concerns: Doxycycline 100 mg twice daily for 7 days as well as a prednisone taper has been added for bronchitis that caused your breathing symptoms. Complete both as ordered Plan of Treatment: Follow up with your provider next available Assessment: See discharge summary
--- NOTE | 2025-03-03 11:44 | MHC.CM.PN ---
Patient has been medically cleared for dc to home today, self care. Last IMM was addressed on 03/01/2025.
--- NOTE | 2025-03-03 13:14 | PM.PNNEP ---
Subjective Subjective Date of Service: 03/03/25 Interval history: Noted some improvement overnight. Still wheezy but better Physical Exam Vital Signs: Vital Signs: Last Vital Signs Temp 97.1 F 03/03/25 11:08 Pulse 64 03/03/25 11:08 Resp 18 03/03/25 11:08 BP 106/53 L 03/03/25 11:08 Pulse Ox 98 03/03/25 11:08 O2 Del Method Room Air 03/03/25 11:08 O2 Flow Rate 2 03/02/25 07:23 BMI result Body Mass Index 32.8 Const: General: no acute distress Orientation/consciousness: patient oriented x3 Eyes: EOM: EOMs intact bilaterally Resp: Auscultation: wheezes Cardio: Rate: regular rate GI: Palpation (GI): Soft to palpation Neuro: General: patient oriented x3 Objective Data Labs 03/03/25 06:14 03/03/25 06:14 Labs: Laboratory Results - last 24 hr 03/03/25 06:14 WBC 5.8 RBC 3.57 L Hgb 10.3 L Hct 31.2 L MCV 87.4 MCH 28.9 MCHC 33.0 RDW 13.4 Plt Count 219 MPV 10.1 Immature Gran % (Auto) 0.3 Neut % (Auto) 87.7 H Lymph % (Auto) 10.6 L [place] % (Auto) 1.2 L Eos % (Auto) 0.0 Baso % (Auto) 0.2 Lymph # (Auto) 0.6 L [place] # (Auto) 0.1 Eos # (Auto) 0.0 Baso # (Auto) 0.0 Abs Immat Gran (auto) 0.02 Absolute Neuts (auto) 5.1 Absolute Nucleated RBC 0.000 Nucleated RBC % (auto) 0.0 Sodium 142 Potassium 3.0 L Chloride 100 Carbon Dioxide 31 H Anion Gap 14 BUN 59 H Creatinine 1.70 H Estim Creat Clear Calc 28.4 Estimated GFR 29 Fasting Glucose 154 H Calcium 10.2 Total Bilirubin 0.4 AST 23 ALT 10 Alkaline Phosphatase 70 Total Protein 6.0 L Albumin 3.5 Procedures Date of Service Date of Service: 03/03/25 Assessment & Plan Assessment and plan (1) Secondary hyperparathyroidism (of renal origin): Status: Acute (2) Anemia in chronic kidney disease: Status: Acute (3) CKD stage 3b, GFR 30-44 ml/min: Status: Acute (4) Hypertension: Status: Acute Plan Unsure of baseline creatinine but may be close to baseline Never had renal biopsy; 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
[2025-03-05 09:08] LABS: IgA 103 mg/dL (70-320); IgG 479 mg/dL (600-1540); IgM 106 mg/dL (50-300)
== END 2025-03-03 14:59 | disposition home or self-care (01) | DRG 191 ==
LOC: HO.ED 20:43 → HO.EDOVER 03-01 02:18 → HO.IMC 03-01 07:32
PROVIDERS: Internal Medicine Nephrology; Physician Assistant Medical; Registered Nurse Emergency; Admitting Provider Hospitalist; Emergency Provider Emergency Medicine; Visit Provider Hospitalist
DX: J44.1 Chronic obstructive pulmonary disease with (acute) exacerbation (principal); I13.0 Hypertensive heart and chronic kidney disease with heart failure and stage 1 through stage 4 chronic kidney disease, or unspecified chronic kidney disease; N25.81 Secondary hyperparathyroidism of renal origin; I48.91 Unspecified atrial fibrillation; I50.9 Heart failure, unspecified; D63.1 Anemia in chronic kidney disease; N18.32 Chronic kidney disease, stage 3b; Z20.822 Contact with and (suspected) exposure to COVID-19; Z79.82 Long term (current) use of aspirin; Z79.899 Other long term (current) drug therapy
CPT/HCPCS: 0241U; 36415; 71046; 76775; 78580; 80053; 82306; 82570; 82784; 82803; 83735; 83880; 83970; 84100; 84156; 84484; 85025; 85379; 86334; 93005; 93306; 93975; 99285; A9540; J1644; J1940; J2919; Q9957

== ENCOUNTER → 2025-02-28 17:39 | Outpatient (BNV) | payer MEDICARE, SELFPAY | PROVIDERS: Admitting Provider Hospitalist; Emergency Provider Emergency Medicine; Visit Provider Internal Medicine Cardiovascular Disease | DX: I44.7 Left bundle-branch block, unspecified (principal); R00.1 Bradycardia, unspecified | CPT/HCPCS: 93010 ==

== ENCOUNTER → 2025-02-28 17:39 | Outpatient (BNV) | payer MEDICARE, SELFPAY | PROVIDERS: Emergency Provider Emergency Medicine; Visit Provider Radiology Diagnostic Radiology | DX: R06.09 Other forms of dyspnea (principal) | CPT/HCPCS: 71046 ==

== ENCOUNTER 2025-03-01 02:08 | Outpatient (BNV) | payer MEDICARE, SELFPAY | END 2025-03-02 17:04 | PROVIDERS: Admitting Provider Hospitalist; Emergency Provider Emergency Medicine; Visit Provider Internal Medicine Cardiovascular Disease | DX: R07.9 Chest pain, unspecified (principal); I48.91 Unspecified atrial fibrillation; R94.31 Abnormal electrocardiogram [ECG] [EKG] | CPT/HCPCS: 93010 ==

== ENCOUNTER 2025-03-01 02:08 | Outpatient (BNV) | payer MEDICARE, SELFPAY | END 2025-03-01 07:55 | PROVIDERS: Admitting Provider Hospitalist; Emergency Provider Emergency Medicine; Visit Provider Radiology Diagnostic Radiology | DX: I12.9 Hypertensive chronic kidney disease with stage 1 through stage 4 chronic kidney disease, or unspecified chronic kidney disease (principal); N18.30 Chronic kidney disease, stage 3 unspecified; R06.02 Shortness of breath | CPT/HCPCS: 76775; 78580; 93975 ==

== ENCOUNTER → 2025-03-01 02:08 | Outpatient (BNV) | payer MEDICARE, SELFPAY | PROVIDERS: Admitting Provider Hospitalist; Emergency Provider Emergency Medicine; Visit Provider Internal Medicine Nephrology | DX: N25.81 Secondary hyperparathyroidism of renal origin (principal); I12.9 Hypertensive chronic kidney disease with stage 1 through stage 4 chronic kidney disease, or unspecified chronic kidney disease; N18.32 Chronic kidney disease, stage 3b; D63.1 Anemia in chronic kidney disease | CPT/HCPCS: 99223; 99232 ==

== ENCOUNTER → 2025-03-01 02:08 | Outpatient (BNV) | payer MEDICARE, SELFPAY | PROVIDERS: Admitting Provider Hospitalist; Emergency Provider Emergency Medicine; Visit Provider Hospitalist | DX: I50.9 Heart failure, unspecified (principal) | CPT/HCPCS: 99223; 99232; 99239; 99499 ==

== ENCOUNTER → 2025-03-01 02:08 | Outpatient (BNV) | payer MEDICARE, SELFPAY | PROVIDERS: Admitting Provider Hospitalist; Emergency Provider Emergency Medicine; Visit Provider Internal Medicine Cardiovascular Disease | DX: J96.01 Acute respiratory failure with hypoxia (principal); R79.89 Other specified abnormal findings of blood chemistry; I35.0 Nonrheumatic aortic (valve) stenosis | CPT/HCPCS: 93306; 99222 ==